=== PATIENT | male | born 1955 | race Caucasian/White ===

== ENCOUNTER → 2017-09-20 | Outpatient (CLI) | payer BC ==
--- NOTE | 2017-09-20 15:06 | XR ---
EXAMINATION TYPE: XR knee complete bilateral, XR tibia fibula bilateral DATE OF EXAM: 09/20/2017 CLINICAL HISTORY: Bilateral knee pain and osteoarthritis. History of osteomyelitis of the left knee TECHNIQUE: Three views of the bilateral knees are obtained. 2 views of the bilateral tibia and fibul as were obtained. COMPARISON: None. FINDINGS: There is extensive tricompartmental arthropathy of both knees with large protuberant margin al osteophytes, tricompartmental joint space narrowing most exaggerated in the medial compartment katelin aterally, and opposing surface sclerosis with near [id number] articulation of the medial compartmen ts bilaterally. No gross evidence of suprapatellar joint effusion is seen of either knee. On the righ t there is a lucency of the lateral tibial plateau that does not extend to an adjacent cortical surfa ce and could represent sequela of prior injury or insufficiency fracture. MRI is recommended. There is generalized subcutaneous edema of the bilateral lower extremities. Calcifications of the rig ht distal Achilles tendons and bilateral phleboliths are noted, right greater than left. The bilatera l tibia and fibula are intact. Ankle mortises are intact with moderate arthropathy of the tibiotalar joints, right greater than left IMPRESSION: 1. Right lateral tibial plateau subchondral lucency that could represent an insufficiency fracture or sequela of prior injury. MRI is recommended to evaluate for bone marrow edema. 2. Extensive tricompartmental bilateral knee arthropathy with near [id number] articulation of the b ilateral medial compartments and opposing surface sclerosis. 3. Generalized lower extremity edema bilaterally with no acute fracture or dislocation of the bilater al tibia or fibula. 4. Calcific tendinosis of the distal Achilles tendons, right greater than left. 5. Partial visualization of the hindfoot arthropathy at least moderate in degree,) on left.
== END | disposition home or self-care (01) ==
LOC: RADXRMAIN 13:46
PROVIDERS: ATTEND Family Medicine
DX: M12.862 Other specific arthropathies, not elsewhere classified, left knee (principal); M12.861 Other specific arthropathies, not elsewhere classified, right knee; R60.0 Localized edema

== ENCOUNTER → 2019-03-13 | Outpatient (CLI) | payer MEDICARE ==
--- NOTE | 2019-03-13 09:38 | US ---
EXAMINATION TYPE: US duplex aorta DATE OF EXAM: 03/13/2019 COMPARISON: NONE CLINICAL HISTORY: Z00.00 abn findings. Screening for AAA per physician's order; HT 5'10", WT 390lbs. EXAM MEASUREMENTS: Us exam is technically limited by large body habitus. Abdominal Aorta: Proximal: 2.4cm A/P Mid: 2.3cm A/P Distal: 2.6cm A/P Bifurcation: not seen Color flow patency is noted mid and distal aorta and PW Doppler measured 105.9cm/sec PSV. IMPRESSION: Technically limited exam due to patient body habitus however no sonographic evidence of a neurysm is seen in the visualized portions of the abdominal aorta.
== END | disposition home or self-care (01) ==
LOC: RADUSMAIN 08:25
PROVIDERS: ATTEND Family Medicine
DX: Z00.00 Encounter for general adult medical examination without abnormal findings (principal)
CPT/HCPCS: 93979

== ENCOUNTER 2021-11-22 06:36 | Day surgery (SDC) | payer MEDICARE ==
[2021-11-16 15:18] VITALS: BMI 63.1
[2021-11-22] MEDS ORDERED: LACTATED RINGERS 1,000 ML IV SCH (06:51)
[2021-11-22 07:19] VITALS: TEMP 97.9
[2021-11-22] MEDS ORDERED: LIDOCAINE 1% (10MG/ML) FOR IV START INTRADERMA ONE (07:28)
[2021-11-22] MEDS ORDERED: LIDOCAINE 2% INJ 20 MG/ML (2 ML VIAL) ONE (07:33)
[2021-11-22] MEDS ORDERED: PROPOFOL 10 MG/ML 20 ML VIAL IV ONE (07:33)
[2021-11-22] MEDS ORDERED: KETAMINE 10 MG/ML 20 ML VIAL ONE (07:33)
[2021-11-22] MEDS ORDERED: MIDAZOLAM 2 MG/2 ML VIAL ONE (07:33)
--- NOTE | 2021-11-22 07:37 | P.GSHP ---
History of Present Illness H&P Date: 11/22/21 CHIEF COMPLAINT: GERD HISTORY OF PRESENT ILLNESS: The patient is a 66-year-old male who presents reports gastroesophageal reflux disease. Upper endoscopy was offered for further evaluation and management. PAST MEDICAL HISTORY: Please see list. PAST SURGICAL HISTORY: Please see list. MEDICATIONS: Please see list. ALLERGIES: Please see list. SOCIAL HISTORY: No illicit drug use FAMILY HISTORY: No reports of Crohn disease or ulcerative colitis. REVIEW OF ORGAN SYSTEMS: CONSTITUTIONAL: No reports of fevers or chills. GI: Denies any blood in stools or constipation. PHYSICAL EXAM: VITAL SIGNS: Stable GENERAL: Well-developed and pleasant in no acute distress. HEENT: No scleral icterus. Extraocular movements grossly intact. Moist buccal mucosa. NECK: Supple without lymphadenopathy. CHEST: Unlabored respirations. Equal bilateral excursions. CARDIOVASCULAR: Regular rate and rhythm. Distal 2+ pulses. ABDOMEN: Soft, nondistended. MUSCULOSKELETAL: No clubbing, cyanosis, or edema. ASSESSMENT: 1. Gastroesophageal reflux disease PLAN: 1. Recommend proceeding with an upper endoscopy Past Medical History Past Medical History: Deep Vein Thrombosis (DVT), Hypertension, Prostate Disorder, Pulmonary Embolus (PE) Additional Past Medical History / Comment(s): Epilepsy as a child, osteomyelitis in 1978, DVT/PE 2019, History of Any Multi-Drug Resistant Organisms: None Reported Past Surgical History: Joint Replacement Additional Past Surgical History / Comment(s): Bilateral knee replacement, right arm skin graft surgery as a child, left knee surgery for ostopmyelituis, fatty tissue removed from back of neck Past Anesthesia/Blood Transfusion Reactions: No Reported Reaction Smoking Status: Former smoker - Past Family History Mother Family Medical History: Cancer Medications and Allergies Home Medications Medication Instructions Recorded Confirmed Type Aspirin [Adult Low Dose Aspirin EC] 81 mg PO HS 10/13/21 11/16/21 History Losartan [Cozaar] 50 mg PO HS 10/13/21 11/16/21 History Metoprolol Tartrate [Lopressor] 25 mg PO BID 10/13/21 11/16/21 History Tamsulosin [Flomax] 0.4 mg PO HS 10/13/21 11/16/21 History hydroCHLOROthiazide 25 mg PO DAILY 10/13/21 11/22/21 History Cholecalciferol [Vitamin D3 (25 50 mcg PO DAILY 11/16/21 11/16/21 History Mcg = 1000 Iu)] Cyanocobalamin (Vitamin B-12) 2,000 mcg PO DAILY 11/16/21 11/16/21 History [Vitamin B-12] Allergies Allergy/AdvReac Type Severity Reaction Status Date / Time No Known Allergies Allergy Verified 11/16/21 15:05 Surgical - Exam Vital Signs Temp Pulse Resp BP Pulse Ox 97.9 F 91 18 166/70 93 L 11/22/21 07:16 11/22/21 07:16 11/22/21 07:16 11/22/21 07:16 11/22/21 07:16
[2021-11-22 07:50] VITALS: PULSE 92
--- NOTE | 2021-11-22 07:50 | P.PCN ---
Date of Procedure: 11/22/21 Description of Procedure: PREOPERATIVE DIAGNOSIS: Gastroesophageal reflux disease. Morbid obesity. POSTOPERATIVE DIAGNOSIS: Gastroesophageal reflux disease. Morbid obesity. Gastritis. Erosive esophagitis Duodenal polyps OPERATION: Esophagogastroduodenoscopy with biopsies along antrum and duodum SURGEON: Irena Rolon MD ANESTHESIA: MAC. INDICATIONS: The patient is a 66-year-old male who presents with reflux disease. Benefits and risks of the procedure were described. Informed consent was obtained. DESCRIPTION: The patient was brought into the endoscopy suite and laid in the left lateral decubitus position. An Olympus gastroscope was passed along the posterior oropharynx down to the distal esophagus where the squamocolumnar junction was encountered at 40 cm from the incisors. The stomach was entered and no bile reflux was found. Additional findings are listed below. Biopsies with cold forceps were obtained of the antrum. The first through third portion of the duodenum was examined. Retroflexion of the scope confirmed Hill grade 2 lower esophageal valve. The squamocolumnar junction demonstrated LA grade B erosive esophagitis. The stomach was desufflated. The patient tolerated the procedure well. FINDINGS: Squamocolumnar junction 40 cm from the incisors. Diaphragmatic hiatus at 40 cm. Duodenal polyposis was identified at the first portion Mild esophageal stenosis Hill grade 2 lower esophageal valve. LA grade B erosive esophagitis. Biopsies obtained of duodenal Chronic gastritis and biopsies obtained RECOMMENDATIONS: Upper endoscopy as needed. Omeprazole 40 mg daily prescribed Plan - Discharge Summary New Discharge Prescriptions: New Omeprazole [PriLOSEC] 40 mg PO DAILY #14 cap Continue Metoprolol Tartrate [Lopressor] 25 mg PO BID Cholecalciferol [Vitamin D3 (25 Mcg = 1000 Iu)] 50 mcg PO DAILY Tamsulosin [Flomax] 0.4 mg PO HS Losartan [Cozaar] 50 mg PO HS hydroCHLOROthiazide 25 mg PO DAILY Aspirin [Adult Low Dose Aspirin EC] 81 mg PO HS Cyanocobalamin (Vitamin B-12) [Vitamin B-12] 2,000 mcg PO DAILY Discharge Medication List Aspirin [Adult Low Dose Aspirin EC] 81 mg PO HS 10/13/21 [History] Losartan [Cozaar] 50 mg PO HS 10/13/21 [History] Metoprolol Tartrate [Lopressor] 25 mg PO BID 10/13/21 [History] Tamsulosin [Flomax] 0.4 mg PO HS 10/13/21 [History] hydroCHLOROthiazide 25 mg PO DAILY 10/13/21 [History] Cholecalciferol [Vitamin D3 (25 Mcg = 1000 Iu)] 50 mcg PO DAILY 11/16/21 [History] Cyanocobalamin (Vitamin B-12) [Vitamin B-12] 2,000 mcg PO DAILY 11/16/21 [History] Omeprazole [PriLOSEC] 40 mg PO DAILY #14 cap 11/22/21 [Rx] Follow up Appointment(s)/Ref[facility] [place] [facility] - 12/[facility]/21 Patient Instructions/Handouts: Gastritis (DC), GERD (Gastroesophageal Reflux Disease) (DC) Discharge Disposition: HOME SELF-CARE
[2021-11-22 08:01] VITALS: BP 123/79; RESP 16
== END 2021-11-22 08:22 | disposition home or self-care (01) ==
LOC: ORWHC2ENDO 06:36
PROVIDERS: ATTEND Surgery Plastic and Reconstructive Surgery
DX: K21.00 Gastro-esophageal reflux disease with esophagitis, without bleeding (principal); K31.7 Polyp of stomach and duodenum; K29.50 Unspecified chronic gastritis without bleeding; K22.2 Esophageal obstruction; K44.9 Diaphragmatic hernia without obstruction or gangrene; E66.01 Morbid (severe) obesity due to excess calories; Z68.44 Body mass index [BMI] 60.0-69.9, adult; I10 Essential (primary) hypertension; Z86.711 Personal history of pulmonary embolism; N42.9 Disorder of prostate, unspecified; Z87.891 Personal history of nicotine dependence; Z86.69 Personal history of other diseases of the nervous system and sense organs; Z79.82 Long term (current) use of aspirin; Z79.899 Other long term (current) drug therapy; Z80.9 Family history of malignant neoplasm, unspecified
CPT/HCPCS: 88305; 43239; J2250; J2704; J2001

== ENCOUNTER 2021-12-31 16:18 | Inpatient (IN) | payer MEDICARE ==
[2021-12-31] MEDS ORDERED: SODIUM CHLORIDE 0.9% 1,000 ML IV STA (17:48)
[2021-12-31] MEDS ORDERED: IBUPROFEN 600 MG TAB PO STA (17:48)
[2021-12-31] MEDS ORDERED: ACETAMINOPHEN TAB 500 MG TAB PO STA (17:48)
[2021-12-31] MEDS ORDERED: VANCOMYCIN IV PER PHARMACY 1 EACH MISC MISCELLANE PRN (17:50)
[2021-12-31] MEDS ORDERED: VANCOMYCIN 2,500 MG in SODIUM CHLORIDE 0.9% 500 ML 500 ML IVPB ONE (18:30)
--- NOTE | 2021-12-31 18:48 | XR ---
EXAMINATION TYPE: XR chest 2V DATE OF EXAM: 12/31/2021 COMPARISON: NONE HISTORY: Weakness TECHNIQUE: 3 views FINDINGS: There is no heart failure nor confluent pneumonic infiltrate. There is linear density in th e left upper lobe. No pleural effusion. There are no hilar masses. Heart size is fairly normal. IMPRESSION: Linear left upper lobe density probably due to some atelectasis. Normal heart.
[2021-12-31 18:51] LABS: Basophils # (A) 0.1 k/uL (0-0.2); Basophils % (A) 0 %; Eosinophils # (A) 0.2 k/uL (0-0.7); Eosinophils % (A) 1 %; HCT 41.4 % (39.0-53.0); HGB 13.2 gm/dL (13.0-17.5); Lymphocytes # (A) 0.3 k/uL (1.0-4.8); Lymphocytes % (A) 1 %; MCH 27.7 pg (25.0-35.0); MCHC 31.9 g/dL (31.0-37.0); MCV 86.7 fL (80.0-100.0); Mean Platelet Volume 8.2; Monocytes # (A) 0.3 k/uL (0-1.0); Monocytes % (A) 2 %; Neutrophils # (A) 17.4 k/uL (1.3-7.7); Neutrophils % (A) 95 %; Platelet Count 187 k/uL (150-450); RBC 4.77 m/uL (4.30-5.90); RDW 14.9 % (11.5-15.5); WBC 18.3 k/uL (3.8-10.6)
[2021-12-31 19:00] LABS: Albumin 3.6 g/dL (3.5-5.0); Calcium 8.5 mg/dL (8.4-10.2); Magnesium 1.5 mg/dL (1.6-2.3); Potassium 3.9 mmol/L (3.5-5.1); Total Bilirubin 1.1 mg/dL (0.2-1.3); Total Protein 6.4 g/dL (6.3-8.2)
[2021-12-31 19:08] LABS: Appearance,Urine Clear (Clear); Bilirubin,Urine Negative (Negative); Blood,Urine Large (Negative); Color,Urine Yellow; Glucose,Urine (UA) Negative (Negative); Ketones,Urine Negative (Negative); Leukocyte Esterase,Urine Negative (Negative); Mucus,Urine Rare /hpf; Nitrite,Urine Negative (Negative); PH, Urine 6.5 (5.0-8.0); Protein,Urine 1+ (Negative); RBC,Urine 95 /hpf (0-5); Specific Gravity,Urine 1.023 (1.001-1.035); Urobilinogen,Urine <2.0 mg/dL (<2.0); WBC,Urine 3 /hpf (0-5)
[2021-12-31 19:11] LABS: INR 1.2 (<1.2); Partial Thromboplastin Time 25.9 sec (22.0-30.0); Prothrombin Time 12.4 sec (9.0-12.0)
--- NOTE | 2021-12-31 20:21 | CT ---
EXAMINATION TYPE: CT abdomen pelvis w con DATE OF EXAM: 12/31/2021 COMPARISON: None HISTORY: abd wall erythema/infection concern. CT DLP: 4787.4 mGycm Automated exposure control for dose reduction was used. CONTRAST: Performed with IV Contrast, patient injected with 80 ML mL of Isovue 300. Lung bases are clear. No pleural effusion. Heart size is normal. No pericardial effusion. Liver spleen pancreas and gallbladder appear intact. The bile ducts are not dilated. There is no adrenal mass. Kidneys have normal size and contour. No hydronephrosis. There is normal en hancement of the kidneys. Ureters are not dilated. There is no retroperitoneal adenopathy. The bladde r distends smoothly. No inguinal hernia. No free fluid in the pelvis. No pelvic mass. There is no mesenteric edema. No ascites or free air. Appendix not clearly seen. No sign of thickened appendix. The lumbar vertebrae appear intact. No compression fracture. The hip joints are intact. IMPRESSION: No acute abnormality in the abdomen pelvis. Exam limited by patient's size. No pathologic fluid colle ction.
--- NOTE | 2021-12-31 21:01 | ED ---
General Adult HPI - General Chief complaint: Weakness Stated complaint: Weakness Time Seen by Provider: 12/31/21 17:05 Source: patient, RN notes reviewed, old records reviewed Mode of arrival: ambulatory Limitations: no limitations - History of Present Illness Initial comments: Patient is a 66-year-old male with past medical history remarkable for prior DVT, hypertension, prostate disorder no longer on anticoagulation who presents here to Department complaining of fatigue, shaking. Patient is also noticed that his pannus has turned red. This started yesterday. States he came in from outside and was feeling unwell. [place] fatigued. Noticed that his abdomen at that time was red below his belt line. This is abnormal for him. We did seek medical attention until today. Has had less of an appetite. Denies shortness of breath, chest pain. Denies abdominal pain, nausea, vomiting. Endorses generalized fatigue. Denies urinary complaints at this time. Endorses generalized weakness. Has no known sick contacts. Denies pain over his pannus. This is for further evaluation of this time. Concerned for possible skin infection of his pannus. - Related Data Home Medications Medication Instructions Recorded Confirmed Aspirin [Adult Low Dose Aspirin EC] 81 mg PO HS 10/13/21 12/31/21 Losartan [Cozaar] 50 mg PO HS 10/13/21 12/31/21 Metoprolol Tartrate [Lopressor] 25 mg PO BID 10/13/21 12/31/21 Tamsulosin [Flomax] 0.4 mg PO HS 10/13/21 12/31/21 hydroCHLOROthiazide 25 mg PO DAILY 10/13/21 12/31/21 Cholecalciferol [Vitamin D3 (25 50 mcg PO DAILY 11/16/21 12/31/21 Mcg = 1000 Iu)] Cyanocobalamin (Vitamin B-12) 2,000 mcg PO DAILY 11/16/21 12/31/21 [Vitamin B-12] Previous Rx's Medication Instructions Recorded Omeprazole [PriLOSEC] 40 mg PO DAILY #14 cap 11/22/21 Allergies Allergy/AdvReac Type Severity Reaction Status Date / Time No Known Allergies Allergy Verified 12/31/21 21:12 Review of Systems ROS Statement: Those systems with pertinent positive or pertinent negative responses have been documented in the HPI. Review of Systems: CONST: Denies fever EYES: Denies blurry vision ENT: Denies nasal congestion C/V: Denies Chest pain RESP: Denies shortness of breath GI: Denies abdominal pain : Denies dysuria SKIN: Endorses rash MSK: Denies joint pain. NEURO: Denies headache ROS Other: All systems not noted in ROS Statement are negative. Past Medical History Past Medical History: Deep Vein Thrombosis (DVT), Hypertension, Prostate Disorder, Pulmonary Embolus (PE) Additional Past Medical History / Comment(s): Epilepsy as a child, osteomyelitis in 1978, DVT/PE 2019, History of Any Multi-Drug Resistant Organisms: None Reported Past Surgical History: Joint Replacement Additional Past Surgical History / Comment(s): Bilateral knee replacement, right arm skin graft surgery as a child, left knee surgery for ostopmyelituis, fatty tissue removed from back of neck Past Anesthesia/Blood Transfusion Reactions: No Reported Reaction Past Psychological History: No Psychological Hx Reported Smoking Status: Former smoker Past Alcohol Use History: None Reported Past Drug Use History: None Reported - Past Family History Mother Family Medical History: Cancer General Exam - General Exam Comments Initial Comments: General: Appears in no acute distress. Febrile. HEAD: Normal with no signs of head trauma. EYES: PERRLA, EOMI, conjunctiva normal, no discharge. ENT: Hearing grossly intact, normal oropharynx. RESPIRATORY: Clear breath sounds bilaterally. No wheezes, rales, or rhonchi. C/V: Regular rate and rhythm. S1 and S2 auscultated, peripheral pulses 2+ and intact throughout ABD: Abd is soft, nontender, nondistended. Large BMI. EXT: Normal range of motion, no obvious deformity SKIN: Endorses erythematous, as well as warm. No crepitus. No induration. No fluctuance. Appears to be cellulitic over the pannus. Perineum unremarkable. NEURO: Alert and oriented 4. No focal deficits. Limitations: no limitations Course Vital Signs 12/31/21 12/31/21 12/31/21 16:30 20:08 21:20 Temperature 101.0 F H 99.2 F 98.9 F Pulse Rate 99 111 H 101 H Respiratory 20 24 18 Rate Blood Pressure 120/99 111/57 111/72 O2 Sat by Pulse 95 93 L 93 L Oximetry Medical Decision Making - Medical Decision Making 7 patient's presentation and physical exam, I'm concerned for acute infectious process for his current symptoms but cannot rule out other etiology such as cardiac. We'll obtain basic labs, infectious labs, CT head and pelvis. Blood cultures, lactic acid will be obtained. Will be started on IV vancomycin. Patient was in agreement this plan. He will be given IV fluids as well, in addition to Tylenol and Motrin for fever. Vital signs otherwise within normal limits except for the fever. EKG shows no signs of acute ischemia. Laboratory studies are remarkable for leukocytosis of 18. Patient is a slightly elevated BUN/creatinine 25 and 1.29, likely secondary to mild MAU and dehydration. Lactic acid is within normal limits. Troponin is indeterminate. Urine studies are positive for blood but nothing else. No infection. Covid is negative. Chest x-ray shows no acute cardio primary process. Atelectasis present. CT abdomen and pelvis reveals no acute intra-abdominal process. No process in the abdominal wall. On reevaluation, vital signs improved. Fever is resolved. I discussed results with the patient. Like to admit for further IV antibiotics. He was in agreement this plan. I spoke the admitting physician, Dr. Santos who is in agreement this plan. He requested infectious disease be consulted as well. Patient was admitted in stable condition. - Lab Data Result diagrams: 12/31/21 18:35 12/31/21 18:35 Lab Results 12/31/21 12/31/21 12/31/21 Range/Units 18:35 18:35 18:35 WBC 18.3 H (3.8-10.6) k/uL RBC 4.77 (4.30-5.90) m/uL Hgb 13.2 (13.0-17.5) gm/dL Hct 41.4 (39.0-53.0) % MCV 86.7 (80.0-100.0) fL MCH 27.7 (25.0-35.0) pg MCHC 31.9 (31.0-37.0) g/dL RDW 14.9 (11.5-15.5) % Plt Count 187 (150-450) k/uL MPV 8.2 Neutrophils % 95 % Lymphocytes % 1 % Monocytes % 2 % Eosinophils % 1 % Basophils % 0 % Neutrophils # 17.4 H (1.3-7.7) k/uL Lymphocytes # 0.3 L (1.0-4.8) k/uL Monocytes # 0.3 (0-1.0) k/uL Eosinophils # 0.2 (0-0.7) k/uL Basophils # 0.1 (0-0.2) k/uL PT 12.4 H (9.0-12.0) sec INR 1.2 H (<1.2) APTT 25.9 (22.0-30.0) sec Sodium (137-145) mmol/L Potassium (3.5-5.1) mmol/L Chloride (98-107) mmol/L Carbon Dioxide (22-30) mmol/L Anion Gap mmol/L BUN (9-20) mg/dL Creatinine (0.66-1.25) mg/dL Est GFR (CKD-EPI)AfAm (>60 ml/min/1.73 sqM) Est GFR (CKD-EPI)NonAf (>60 ml/min/1.73 sqM) Glucose (74-99) mg/dL Plasma Lactic Acid Misha (0.7-2.0) mmol/L Calcium (8.4-10.2) mg/dL Magnesium (1.6-2.3) mg/dL Total Bilirubin (0.2-1.3) mg/dL AST (17-59) U/L ALT (4-49) U/L Alkaline Phosphatase (38-126) U/L Troponin I (0.000-0.034) ng/mL Total Protein (6.3-8.2) g/dL Albumin (3.5-5.0) g/dL Urine Color Yellow Urine Appearance Clear (Clear) Urine pH 6.5 (5.0-8.0) Ur Specific [place] 1.023 (1.001-1.035) Urine Protein 1+ H (Negative) Urine Glucose (UA) Negative (Negative) Urine Ketones Negative (Negative) Urine Blood Large H (Negative) Urine Nitrite Negative (Negative) Urine Bilirubin Negative (Negative) Urine Urobilinogen <2.0 (<2.0) mg/dL Ur Leukocyte Esterase Negative (Negative) Urine RBC 95 H (0-5) /hpf Urine WBC 3 (0-5) /hpf Urine Mucus Rare H (None) /hpf Coronavirus (PCR) (Not Detectd) 12/31/21 12/31/21 12/31/21 Range/Units 18:35 18:35 18:35 WBC (3.8-10.6) k/uL RBC (4.30-5.90) m/uL Hgb (13.0-17.5) gm/dL Hct (39.0-53.0) % MCV (80.0-100.0) fL MCH (25.0-35.0) pg MCHC (31.0-37.0) g/dL RDW (11.5-15.5) % Plt Count (150-450) k/uL MPV Neutrophils % % Lymphocytes % % Monocytes % % Eosinophils % % Basophils % % Neutrophils # (1.3-7.7) k/uL Lymphocytes # (1.0-4.8) k/uL Monocytes # (0-1.0) k/uL Eosinophils # (0-0.7) k/uL Basophils # (0-0.2) k/uL PT (9.0-12.0) sec INR (<1.2) APTT (22.0-30.0) sec Sodium 135 L (137-145) mmol/L Potassium 3.9 (3.5-5.1) mmol/L Chloride 97 L (98-107) mmol/L Carbon Dioxide 26 (22-30) mmol/L Anion Gap 12 mmol/L BUN 25 H (9-20) mg/dL Creatinine 1.29 H (0.66-1.25) mg/dL Est GFR (CKD-EPI)AfAm 66 (>60 ml/min/1.73 sqM) Est GFR (CKD-EPI)NonAf 57 (>60 ml/min/1.73 sqM) Glucose 113 H (74-99) mg/dL Plasma Lactic Acid Misha (0.7-2.0) mmol/L Calcium 8.5 (8.4-10.2) mg/dL Magnesium 1.5 L (1.6-2.3) mg/dL Total Bilirubin 1.1 (0.2-1.3) mg/dL AST 77 H (17-59) U/L ALT 27 (4-49) U/L Alkaline Phosphatase 43 (38-126) U/L Troponin I 0.028 (0.000-0.034) ng/mL Total Protein 6.4 (6.3-8.2) g/dL Albumin 3.6 (3.5-5.0) g/dL Urine Color Urine Appearance (Clear) Urine pH (5.0-8.0) Ur Specific [place] (1.001-1.035) Urine Protein (Negative) Urine Glucose (UA) (Negative) Urine Ketones (Negative) Urine Blood (Negative) Urine Nitrite (Negative) Urine Bilirubin (Negative) Urine Urobilinogen (<2.0) mg/dL Ur Leukocyte Esterase (Negative) Urine RBC (0-5) /hpf Urine WBC (0-5) /hpf Urine Mucus (None) /hpf Coronavirus (PCR) Not Detected (Not Detectd) 12/31/21 Range/Units 18:42 WBC (3.8-10.6) k/uL RBC (4.30-5.90) m/uL Hgb (13.0-17.5) gm/dL Hct (39.0-53.0) % MCV (80.0-100.0) fL MCH (25.0-35.0) pg MCHC (31.0-37.0) g/dL RDW (11.5-15.5) % Plt Count (150-450) k/uL MPV Neutrophils % % Lymphocytes % % Monocytes % % Eosinophils % % Basophils % % Neutrophils # (1.3-7.7) k/uL Lymphocytes # (1.0-4.8) k/uL Monocytes # (0-1.0) k/uL Eosinophils # (0-0.7) k/uL Basophils # (0-0.2) k/uL PT (9.0-12.0) sec INR (<1.2) APTT (22.0-30.0) sec Sodium (137-145) mmol/L Potassium (3.5-5.1) mmol/L Chloride (98-107) mmol/L Carbon Dioxide (22-30) mmol/L Anion Gap mmol/L BUN (9-20) mg/dL Creatinine (0.66-1.25) mg/dL Est GFR (CKD-EPI)AfAm (>60 ml/min/1.73 sqM) Est GFR (CKD-EPI)NonAf (>60 ml/min/1.73 sqM) Glucose (74-99) mg/dL Plasma Lactic Acid Misha 1.6 (0.7-2.0) mmol/L Calcium (8.4-10.2) mg/dL Magnesium (1.6-2.3) mg/dL Total Bilirubin (0.2-1.3) mg/dL AST (17-59) U/L ALT (4-49) U/L Alkaline Phosphatase (38-126) U/L Troponin I (0.000-0.034) ng/mL Total Protein (6.3-8.2) g/dL Albumin (3.5-5.0) g/dL Urine Color Urine Appearance (Clear) Urine pH (5.0-8.0) Ur Specific [place] (1.001-1.035) Urine Protein (Negative) Urine Glucose (UA) (Negative) Urine Ketones (Negative) Urine Blood (Negative) Urine Nitrite (Negative) Urine Bilirubin (Negative) Urine Urobilinogen (<2.0) mg/dL Ur Leukocyte Esterase (Negative) Urine RBC (0-5) /hpf Urine WBC (0-5) /hpf Urine Mucus (None) /hpf Coronavirus (PCR) (Not Detectd) - EKG Data -: EKG Interpreted by Me EKG Comments: 12-lead Electrocardiogram Interpretation Note EKG was reviewed and interpreted by myself. 12-lead ECG performed at 2000 is interpreted by me as revealing sinus tachycardia at a rate of 110 beats per minute. [place] is normal. QRS duration is 104 ms, CO interval is 110 ms, QTc is 442 ms. There is a good deal of baseline artifact present secondary to motion.. There were no ST or T wave abnormalities to suggest myocardial ischemia or injury. R wave progression across the precordium was satisfactory. By my interpretation this EKG is non-diagnostic for acute ischemia. Disposition Clinical Impression: Cellulitis of abdominal wall, MAU (acute kidney injury), Febrile illness, acute Disposition: ADMITTED IP TO THIS HOSP Condition: Stable Is patient prescribed a controlled substance at d/c from ED?: No Time of Disposition: 20:20
[2021-12-31] MEDS ORDERED: NALOXONE 0.4 MG/ML 1 ML VIAL IV PRN (21:02)
[2021-12-31] MEDS: MAGNESIUM SULFATE-D5W PMX 1 GM in DEXTROSE/WATER 1 100ML.BAG IVPB SCH ×2 (23:28→23:41)
[2022-01-01] MEDS ORDERED: ACETAMINOPHEN TAB 325 MG TAB PO PRN
[2022-01-01] MEDS ORDERED: ONDANSETRON 4 MG/2 ML VIAL IVP PRN
[2022-01-01] MEDS ORDERED: KETOROLAC 15 MG/ML 1 ML VIAL IVP PRN
[2022-01-01] MEDS ORDERED: MORPHINE SULFATE 4 MG/ML SYRINGE IV PRN
[2022-01-01] MEDS ORDERED: MAGNESIUM SULFATE-D5W PMX 1 GM in DEXTROSE/WATER 1 100ML.BAG IVPB SCH (00:30)
[2022-01-01] MEDS: HEPARIN SODIUM,PORCINE/PF 5,000 UNIT/0.5 ML SYRINGE SQ SCH ×3 (02:33→15:44)
[2022-01-01 07:16] LABS: Basophils # (A) 0.1 k/uL (0-0.2); Basophils % (A) 1 %; Eosinophils # (A) 0.2 k/uL (0-0.7); Eosinophils % (A) 1 %; HCT 43.5 % (39.0-53.0); HGB 13.4 gm/dL (13.0-17.5); Hypochromasia Slight; Lymphocytes # (A) 0.1 k/uL (1.0-4.8); Lymphocytes % (A) 1 %; MCH 27.3 pg (25.0-35.0); MCHC 30.8 g/dL (31.0-37.0); MCV 88.6 fL (80.0-100.0); Mean Platelet Volume 8.3; Monocytes # (A) 0.4 k/uL (0-1.0); Monocytes % (A) 2 %; Neutrophils # (A) 17.5 k/uL (1.3-7.7); Neutrophils % (A) 95 %; Platelet Count 157 k/uL (150-450); RBC 4.91 m/uL (4.30-5.90); RDW 15.1 % (11.5-15.5); WBC 18.5 k/uL (3.8-10.6)
[2022-01-01 07:25] LABS: Calcium 8.1 mg/dL (8.4-10.2); Potassium 3.5 mmol/L (3.5-5.1)
[2022-01-01] MEDS: CHOLECALCIFEROL 25 MCG (1000 IU) TABLET PO SCH (08:55)
[2022-01-01] MEDS: PANTOPRAZOLE 40 MG TABLET PO SCH (08:55)
[2022-01-01] MEDS: METOPROLOL TARTRATE 25 MG TAB PO SCH ×2 (08:56→20:11)
[2022-01-01] MEDS: CYANOCOBALAMIN 500 MCG TAB PO SCH (08:56)
[2022-01-01] MEDS: hydroCHLOROthiazide 25 MG TAB PO SCH (08:56)
[2022-01-01] MEDS ORDERED: VANCOMYCIN 2,500 MG in SODIUM CHLORIDE 0.9% 500 ML 500 ML IVPB SCH (12:00)
[2022-01-01] MEDS: ceFAZolin 3 GM in SODIUM CHLORIDE 0.9% 100 ML IVPB SCH (15:44)
[2022-01-01] MEDS: CLINDAMYCIN 900 MG in DEXTROSE 5% IN WATER 50 ML IVPB SCH ×2 (16:27)
[2022-01-01] MEDS: TAMSULOSIN 0.4 MG CAP.ER.24H PO SCH (20:11)
[2022-01-01] MEDS: LOSARTAN 50 MG TAB PO SCH (20:11)
[2022-01-01] MEDS: ASPIRIN 81 MG PO SCH (20:11)
--- NOTE | 2022-01-01 20:15 | P.HPIM ---
History of Present Illness H&P Date: 01/01/22 Chief Complaint: Weakness 66-year-old male with past medical history remarkable for prior DVT, hypertension, prostate disorder no longer on anticoagulation who presents here t o Department complaining of fatigue, shaking. Patient is also noticed that his pannus has turned red. This started yesterday. States he came in from outside and was feeling unwell. [place] fatigued. Noticed that his abdomen at that time was red below his belt line. This is abnormal for him. We did seek medical attention until today. Has had less of an appetite. Denies shortness of breath, chest pain. Denies abdominal pain, nausea, vomiting. Endorses generalized fatigue. Denies urinary complaints at this time. Endorses generalized weakness. Has no known sick contacts. Denies pain over his pannus. This is for further evaluation of this time. Concerned for possible skin infection of his pannus. EKG shows no signs of acute ischemia. Laboratory studies are remarkable for leukocytosis of 18. Patient is a slightly elevated BUN/creatinine 25 and 1.29, likely secondary to mild MAU and dehydration. Lactic acid is within normal limits. Troponin is indeterminate. Urine studies are positive for blood but nothing else. No infection. Covid is negative. Chest x-ray shows no acute cardio primary process. Atelectasis present. CT abdomen and pelvis reveals no acute intra-abdominal process. No process in the abdominal wall. Review of Systems REVIEW OF SYSTEMS: CONSTITUTIONAL: No fever, no malaise, no fatigue. HEENT: No recent visual problems or hearing problems. Denied any sore throat. CARDIOVASCULAR: No chest pain, orthopnea, PND, no palpitations, no syncope. PULMONARY: No shortness of breath, no cough, no hemoptysis. GASTROINTESTINAL: No diarrhea, no nausea, no vomiting, no abdominal pain. NEUROLOGICAL: No headaches, no weakness, no numbness. HEMATOLOGICAL: Denies any bleeding or petechiae. GENITOURINARY: Denies any burning micturition, frequency, or urgency. MUSCULOSKELETAL/RHEUMATOLOGICAL: Denies any joint pain, swelling, or any muscle pain. ENDOCRINE: Denies any polyuria or polydipsia. The rest of the 14-point review of systems is negative. Past Medical History Past Medical History: Deep Vein Thrombosis (DVT), Hypertension, Prostate Disord er, Pulmonary Embolus (PE) Additional Past Medical History / Comment(s): Epilepsy as a child, osteomyelitis in 1978, DVT/PE 2019, History of Any Multi-Drug Resistant Organisms: None Reported Past Surgical History: Joint Replacement Additional Past Surgical History / Comment(s): Bilateral knee replacement, right arm skin graft surgery as a child, left knee surgery for ostopmyelituis, fatty tissue removed from back of neck Past Anesthesia/Blood Transfusion Reactions: No Reported Reaction Past Psychological History: No Psychological Hx Reported Smoking Status: Former smoker Past Alcohol Use History: None Reported Additional Past Alcohol Use History / Comment(s): quit smoking age 39, started smoking age19's, was "light smoker" Past Drug Use History: None Reported - Past Family History Mother Family Medical History: Cancer Medications and Allergies Home Medications Medication Instructions Recorded Confirmed Type Aspirin [Adult Low Dose Aspirin EC] 81 mg PO HS 10/13/21 12/31/21 History Losartan [Cozaar] 50 mg PO HS 10/13/21 12/31/21 History Metoprolol Tartrate [Lopressor] 25 mg PO BID 10/13/21 12/31/21 History Tamsulosin [Flomax] 0.4 mg PO HS 10/13/21 12/31/21 History hydroCHLOROthiazide 25 mg PO DAILY 10/13/21 12/31/21 History Cholecalciferol [Vitamin D3 (25 50 mcg PO DAILY 11/16/21 12/31/21 History Mcg = 1000 Iu)] Cyanocobalamin (Vitamin B-12) 2,000 mcg PO DAILY 11/16/21 12/31/21 History [Vitamin B-12] Omeprazole [PriLOSEC] 40 mg PO DAILY #14 cap 11/22/21 12/31/21 Rx Allergies Allergy/AdvReac Type Severity Reaction Status Date / Time No Known Allergies Allergy Verified 12/31/21 21:12 Physical Exam Vitals: Vital Signs Temp Pulse Pulse Resp BP BP Pulse Ox 01/01/22 07:00 98.3 F 97 18 134/80 95 01/01/22 02:00 98.5 F 99 17 101/61 99 01/01/22 00:40 97.6 F 90 20 98/61 100 12/31/21 23:43 99.0 F 96 23 115/70 94 L 12/31/21 21:20 98.9 F 101 H 18 111/72 93 L 12/31/21 20:08 99.2 F 111 H 24 111/57 93 L 12/31/21 16:30 101.0 F H 99 23 120/99 95 Intake and Output 12/31/21 01/01/22 01/01/22 22:59 06:59 14:59 Output Total 400 Balance -400 Output: Urine 400 Other: Voiding Method Urinal # Voids 1 1 Weight 199.581 kg 199.581 kg General: Appears in no acute distress. Febrile. HEAD: Normal with no signs of head trauma. EYES: PERRLA, EOMI, conjunctiva normal, no discharge. ENT: Hearing grossly intact, normal oropharynx. RESPIRATORY: Clear breath sounds bilaterally. No wheezes, rales, or rhonchi. C/V: Regular rate and rhythm. S1 and S2 auscultated, peripheral pulses 2+ and intact throughout ABD: Abd is soft, nontender, nondistended. Large BMI. EXT: Normal range of motion, no obvious deformity SKIN: Endorses erythematous, as well as warm. No crepitus. No induration. No fluctuance. Appears to be cellulitic over the pannus. Perineum unremarkable. NEURO: Alert and oriented 4. No focal deficits. Limitations: no limitations Results CBC & Chem 7: 01/01/22 06:23 01/01/22 06:23 Labs: Abnormal Lab Results - Last 24 Hours (Table) 12/31/21 12/31/21 12/31/21 Range/Units 18:35 18:35 18:35 WBC 18.3 H (3.8-10.6) k/uL MCHC (31.0-37.0) g/dL Neutrophils # 17.4 H (1.3-7.7) k/uL Lymphocytes # 0.3 L (1.0-4.8) k/uL PT 12.4 H (9.0-12.0) sec INR 1.2 H (<1.2) Sodium (137-145) mmol/L Chloride (98-107) mmol/L BUN (9-20) mg/dL Creatinine (0.66-1.25) mg/dL Glucose (74-99) mg/dL Calcium (8.4-10.2) mg/dL Magnesium (1.6-2.3) mg/dL AST (17-59) U/L Urine Protein 1+ H (Negative) Urine Blood Large H (Negative) Urine RBC 95 H (0-5) /hpf Urine Mucus Rare H (None) /hpf 12/31/21 01/01/22 01/01/22 Range/Units 18:35 06:23 06:23 WBC 18.5 H (3.8-10.6) k/uL MCHC 30.8 L (31.0-37.0) g/dL Neutrophils # 17.5 H (1.3-7.7) k/uL Lymphocytes # 0.1 L (1.0-4.8) k/uL PT (9.0-12.0) sec INR (<1.2) Sodium 135 L (137-145) mmol/L Chloride 97 L (98-107) mmol/L BUN 25 H 28 H (9-20) mg/dL Creatinine 1.29 H (0.66-1.25) mg/dL Glucose 113 H 126 H (74-99) mg/dL Calcium 8.1 L (8.4-10.2) mg/dL Magnesium 1.5 L (1.6-2.3) mg/dL AST 77 H (17-59) U/L Urine Protein (Negative) Urine Blood (Negative) Urine RBC (0-5) /hpf Urine Mucus (None) /hpf Assessment and Plan Assessment: 1. Severe extensive Cellulitis of abdominal wall - White blood count is markedly elevated at 18.3; patient is currently on IV vancomycin; cefazolin and clindamycin is added per ID recommendations - We will monitor CBC, CRP and pro-calcitonin - Consult ID for further recommendations 2. Acute renal injury; slowly IV fluid hydration in form of normal saline at rate of 75 mL an hour; we will monitor strict GARRY's, daily weights, renal function and electrolytes; avoid nephrotoxins and hypotension 3. Electrolyte imbalance/hypomagnesemia; supplemented in ED; we will monitor electrolytes and supplement as needed 4. Transaminitis; likely related to sepsis; monitor liver enzymes with plans for further workup if liver enzymes continue to trend up 5. UTI; blood culture and urine culture is obtained; further recommendations once culture results are available 6. Hypertension; losartan 50 mg daily; metoprolol 25 mg twice a day; hydrochlorothiazide 25 mg daily 7. BPH; Flomax 0.4 mg daily DVT prophylaxis; SCDs/subcu heparin CODE STATUS; full code
--- NOTE | 2022-01-01 21:40 | P.CONS ---
History of Present Illness - Reason for Consult Consult date: 01/01/22 - History of Present Illness Patient is a 66-year male with a past medical history significant for hypertension morbid obesity history of abdominal wall cellulitis x2 presenting to the hospital with increasing weakness lethargic and not feeling well also complaining of abdominal wall swelling and redness that has been going on for 1 day before presentation to the hospital patient denies any history of any trauma has been complaining of diffuse swelling redness to lower abdominal area that has progressed very quickly currently with no open wound or any drainage has been complaining of pain which is mostly dull aching to sharp about 5-6 out of 10 no radiation patient on presentation to the hospital was running a fever of 101 degrees formulae patient was tachycardic and did have white count of 18.3 BUN/creatinine were elevated urine has been negative chronically there was negative patient did have a abdominal pelvic CT no acute abnormality no pathological fluid collection patient was started on vancomycin has been admitted to the hospital infectious disease was consulted for further management of antibiotic therapy Past Medical History Past Medical History: Deep Vein Thrombosis (DVT), Hypertension, Prostate Disorder, Pulmonary Embolus (PE) Additional Past Medical History / Comment(s): Epilepsy as a child, osteomyelitis in 1978, DVT/PE 2019, History of Any Multi-Drug Resistant Organisms: None Reported Past Surgical History: Joint Replacement Additional Past Surgical History / Comment(s): Bilateral knee replacement, right arm skin graft surgery as a child, left knee surgery for ostopmyelituis, fatty tissue removed from back of neck Past Anesthesia/Blood Transfusion Reactions: No Reported Reaction Past Psychological History: No Psychological Hx Reported Smoking Status: Former smoker Past Alcohol Use History: None Reported Additional Past Alcohol Use History / Comment(s): quit smoking age 39, started smoking age19's, was "light smoker" Past Drug Use History: None Reported - Past Family History Mother Family Medical History: Cancer Medications and Allergies Home Medications Medication Instructions Recorded Confirmed Type Aspirin [Adult Low Dose Aspirin EC] 81 mg PO HS 10/13/21 12/31/21 History Losartan [Cozaar] 50 mg PO HS 10/13/21 12/31/21 History Metoprolol Tartrate [Lopressor] 25 mg PO BID 10/13/21 12/31/21 History Tamsulosin [Flomax] 0.4 mg PO HS 10/13/21 12/31/21 History hydroCHLOROthiazide 25 mg PO DAILY 10/13/21 12/31/21 History Cholecalciferol [Vitamin D3 (25 50 mcg PO DAILY 11/16/21 12/31/21 History Mcg = 1000 Iu)] Cyanocobalamin (Vitamin B-12) 2,000 mcg PO DAILY 11/16/21 12/31/21 History [Vitamin B-12] Omeprazole [PriLOSEC] 40 mg PO DAILY #14 cap 11/22/21 12/31/21 Rx Allergies Allergy/AdvReac Type Severity Reaction Status Date / Time No Known Allergies Allergy Verified 12/31/21 21:12 Physical Exam Vitals: Vital Signs Temp Pulse Pulse Resp BP BP Pulse Ox 01/01/22 07:00 98.3 F 97 18 134/80 95 01/01/22 02:00 98.5 F 99 17 101/61 99 01/01/22 00:40 97.6 F 90 20 98/61 100 12/31/21 23:43 99.0 F 96 23 115/70 94 L 12/31/21 21:20 98.9 F 101 H 18 111/72 93 L 12/31/21 20:08 99.2 F 111 H 24 111/57 93 L 12/31/21 16:30 101.0 F H 99 23 120/99 95 Intake and Output 12/31/21 01/01/22 01/01/22 22:59 06:59 14:59 Output Total 400 Balance -400 Output: Urine 400 Other: Voiding Method Urinal # Voids 1 1 Weight 199.581 kg 199.581 kg Results CBC & Chem 7: 01/01/22 06:23 01/01/22 06:23 Labs: Abnormal Lab Results - Last 24 Hours (Table) 12/31/21 12/31/21 12/31/21 Range/Units 18:35 18:35 18:35 WBC 18.3 H (3.8-10.6) k/uL MCHC (31.0-37.0) g/dL Neutrophils # 17.4 H (1.3-7.7) k/uL Lymphocytes # 0.3 L (1.0-4.8) k/uL PT 12.4 H (9.0-12.0) sec INR 1.2 H (<1.2) Sodium (137-145) mmol/L Chloride (98-107) mmol/L BUN (9-20) mg/dL Creatinine (0.66-1.25) mg/dL Glucose (74-99) mg/dL Calcium (8.4-10.2) mg/dL Magnesium (1.6-2.3) mg/dL AST (17-59) U/L Urine Protein 1+ H (Negative) Urine Blood Large H (Negative) Urine RBC 95 H (0-5) /hpf Urine Mucus Rare H (None) /hpf 12/31/21 01/01/22 01/01/22 Range/Units 18:35 06:23 06:23 WBC 18.5 H (3.8-10.6) k/uL MCHC 30.8 L (31.0-37.0) g/dL Neutrophils # 17.5 H (1.3-7.7) k/uL Lymphocytes # 0.1 L (1.0-4.8) k/uL PT (9.0-12.0) sec INR (<1.2) Sodium 135 L (137-145) mmol/L Chloride 97 L (98-107) mmol/L BUN 25 H 28 H (9-20) mg/dL Creatinine 1.29 H (0.66-1.25) mg/dL Glucose 113 H 126 H (74-99) mg/dL Calcium 8.1 L (8.4-10.2) mg/dL Magnesium 1.5 L (1.6-2.3) mg/dL AST 77 H (17-59) U/L Urine Protein (Negative) Urine Blood (Negative) Urine RBC (0-5) /hpf Urine Mucus (None) /hpf Assessment and Plan Plan: 1patient presented to hospital with sepsis in this patient did have a fever tachycardia elevated white count source is abdominal wall cellulitis with diffuse swelling and redness likely secondary to streptococcal disease possible etiology could be groin area cutaneous candidiasis and skin Excoriation. 2patient with a borderline kidney function high risk of nephrotoxicity from vancomycin. 3we will discontinue the vancomycin. 4start the patient on cefazolin 3 g every 8 hours and clindamycin 900 g every 8 hour. 5nystatin powder to bilateral groin area twice a day We will follow on clinical condition and cultures to further adjust medication if needed Thank you for this consultation will follow this patient along with you Time with Patient: Greater than 30
[2022-01-02] MEDS: CLINDAMYCIN 900 MG in DEXTROSE 5% IN WATER 50 ML IVPB SCH ×8 (00:22→22:51)
[2022-01-02] MEDS: HEPARIN SODIUM,PORCINE/PF 5,000 UNIT/0.5 ML SYRINGE SQ SCH ×4 (00:22→22:50)
[2022-01-02] MEDS: ceFAZolin 3 GM in SODIUM CHLORIDE 0.9% 100 ML IVPB SCH ×4 (00:23→22:51)
[2022-01-02] MEDS: NYSTATIN 100,000 UNIT/GM POWD 15 GM TOPICAL SCH ×3 (00:53→20:23)
[2022-01-02] MEDS: CHOLECALCIFEROL 25 MCG (1000 IU) TABLET PO SCH (07:16)
[2022-01-02] MEDS: METOPROLOL TARTRATE 25 MG TAB PO SCH ×2 (07:16→19:52)
[2022-01-02] MEDS: hydroCHLOROthiazide 25 MG TAB PO SCH (07:16)
[2022-01-02] MEDS: CYANOCOBALAMIN 500 MCG TAB PO SCH (07:16)
[2022-01-02] MEDS: PANTOPRAZOLE 40 MG TABLET PO SCH (07:16)
[2022-01-02 10:53] LABS: Basophils # (A) 0.02 X 10*3/uL (0.00-0.10); Basophils % (A) 0.2 %; Eosinophils # (A) 0 X 10*3/uL (0.04-0.35); Eosinophils % (A) 0 %; HCT 36.5 % (39.6-50.0); HGB 11.4 g/dL (13.0-17.0); Immature Grans, Automated 0.3 %; Lymphocytes # (A) 0.33 X 10*3/uL (0.90-5.00); Lymphocytes % (A) 2.8 %; MCH 27.3 pg (27.0-32.0); MCHC 31.2 g/dL (32.0-37.0); MCV 87.5 fL (80.0-97.0); Mean Platelet Volume 11.4 fL (9.5-12.2); Monocytes # (A) 0.51 X 10*3/uL (0.20-1.00); Monocytes % (A) 4.4 %; NRBC Per 100 WBC 0 /100 WBCS (0.0-0.0); Neutrophils # (A) 10.81 X 10*3/uL (1.80-7.70); Neutrophils % (A) 92.3 %; Platelet Count 176 X 10*3/uL (140-440); RBC 4.17 X 10*6/uL (4.40-5.60); RDW 15.9 % (11.5-14.5); WBC 11.71 X 10*3/uL (4.50-10.00)
[2022-01-02 11:02] LABS: African American GFR (CKD) 46.3 (60.0-200.0); Anion Gap 12.8 mmol/L (10.00-18.00); BUN/Creat Ratio 16.71 Ratio (12.00-20.00); Blood Urea Nitrogen 28.9 mg/dL (9.0-27.0); C Reactive Protein 26.4 mg/dL (0.00-0.80); Calcium 7.9 mg/dL (8.7-10.3); Carbon Dioxide 24.4 mmol/L (20.0-27.5); Potassium 3.4 mmol/L (3.5-5.5)
--- NOTE | 2022-01-02 17:22 | P.PN ---
Subjective Progress Note Date: 01/02/22 Principal diagnosis: Severe extensive cellulitis of anterior abdominal wall Acute renal injury Electrolyte imbalance UTI Transaminitis 66-year-old male with past medical history remarkable for prior DVT, hypertension, prostate disorder no longer on anticoagulation who presents here to Department complaining of fatigue, shaking. Patient is also noticed that his pannus has turned red. This started yesterday. States he came in from outside and was feeling unwell. [place] fatigued. Noticed that his abdomen at that time was red below his belt line. This is abnormal for him. We did seek medical attention until today. Has had less of an appetite. Denies shortness of breath, chest pain. Denies abdominal pain, nausea, vomiting. Endorses generali zed fatigue. Denies urinary complaints at this time. Endorses generalized weakness. Has no known sick contacts. Denies pain over his pannus. This is for further evaluation of this time. Concerned for possible skin infection of his pannus. EKG shows no signs of acute ischemia. Laboratory studies are remarkable for leukocytosis of 18. Patient is a slightly elevated BUN/creatinine 25 and 1.29, likely secondary to mild MAU and dehydration. Lactic acid is within normal limits. Troponin is indeterminate. Urine studies are positive for blood but nothing else. No infection. Covid is negative. Chest x-ray shows no acute cardio primary process. Atelectasis present. CT abdomen and pelvis reveals no acute intra-abdominal process. No process in the abdominal wall. Patient has been switched to IV cefazolin 3 g every 8 hours along with clindamycin 900 mg every 8 hours; vancomycin is discontinued due to high risk of nephrotoxicity given borderline kidney function We will continue with current IV antibiotics and monitor CBC Objective - Vital Signs Vital signs: Vital Signs Temp 98.6 F 01/02/22 07:00 Pulse 61 01/02/22 07:00 Resp 16 01/02/22 07:00 BP 122/76 01/02/22 07:00 Pulse Ox 93 L 01/02/22 07:00 FiO2 Intake & Output 01/01/22 01/02/22 01/02/22 18:59 06:59 18:59 Intake Total 1080 Output Total 300 Balance 780 Intake: Oral 1080 Output: Urine 300 Other: Voiding Method Urinal Toilet Urinal # Voids 3 4 - Exam General: Appears in no acute distress. Febrile. HEAD: Normal with no signs of head trauma. EYES: PERRLA, EOMI, conjunctiva normal, no discharge. ENT: Hearing grossly intact, normal oropharynx. RESPIRATORY: Clear breath sounds bilaterally. No wheezes, rales, or rhonchi. C/V: Regular rate and rhythm. S1 and S2 auscultated, peripheral pulses 2+ and intact throughout ABD: Abd is soft, nontender, nondistended. Large BMI. EXT: Normal range of motion, no obvious deformity SKIN: Endorses erythematous, as well as warm. No crepitus. No induration. No fluctuance. Appears to be cellulitic over the pannus. Perineum unremarkable. NEURO: Alert and oriented 4. No focal deficits. Limitations: no limitations - Labs CBC & Chem 7: 01/02/22 06:38 01/02/22 06:38 Labs: Abnormal Lab Results - Last 24 Hours (Table) 01/02/22 01/02/22 01/02/22 Range/Units 06:38 06:38 06:38 WBC 11.71 H (4.50-10.00) X 10*3/uL RBC 4.17 L (4.40-5.60) X 10*6/uL Hgb 11.4 L (13.0-17.0) g/dL Hct 36.5 L (39.6-50.0) % MCHC 31.2 L (32.0-37.0) g/dL RDW 15.9 H (11.5-14.5) % Neutrophils # 10.81 H (1.80-7.70) X 10*3/uL Lymphocytes # 0.33 L (0.90-5.00) X 10*3/uL Eosinophils # 0 L (0.04-0.35) X 10*3/uL Potassium 3.4 L (3.5-5.5) mmol/L BUN 28.9 H (9.0-27.0) mg/dL Creatinine 1.7 H (0.6-1.5) mg/dL Est GFR (CKD-EPI)AfAm 46.3 L (60.0-200.0) Est GFR (CKD-EPI)NonAf 40.0 L (60.0-200.0) Glucose 120 H (70-110) mg/dL Calcium 7.9 L (8.7-10.3) mg/dL C-Reactive Protein 26.40 H (0.00-0.80) mg/dL Procalcitonin 8.32 H (0.02-0.09) ng/mL Microbiology - Last 24 Hours (Table) 12/31/21 18:37 Blood Culture - Preliminary Blood No Growth after 24 hours 12/31/21 18:30 Blood Culture - Preliminary Blood No Growth after 24 hours Assessment and Plan Assessment: 1. Severe extensive Cellulitis of abdominal wall - White blood count is markedly elevated at 18.3; patient is currently on IV vancomycin; cefazolin and clindamycin is added per ID recommendations - We will monitor CBC, CRP and pro-calcitonin - Consult ID for further recommendations 2. Acute renal injury; slowly IV fluid hydration in form of normal saline at rate of 75 mL an hour; we will monitor strict GARRY's, daily weights, renal function and electrolytes; avoid nephrotoxins and hypotension 3. Electrolyte imbalance/hypomagnesemia; supplemented in ED; we will monitor electrolytes and supplement as needed 4. Transaminitis; likely related to sepsis; monitor liver enzymes with plans for further workup if liver enzymes continue to trend up 5. UTI; blood culture and urine culture is obtained; further recommendations on ce culture results are available 6. Hypertension; losartan 50 mg daily; metoprolol 25 mg twice a day; hydrochlorothiazide 25 mg daily 7. BPH; Flomax 0.4 mg daily DVT prophylaxis; SCDs/subcu heparin CODE STATUS; full code
[2022-01-02] MEDS: ASPIRIN 81 MG PO SCH (19:51)
[2022-01-02] MEDS: TAMSULOSIN 0.4 MG CAP.ER.24H PO SCH (19:51)
[2022-01-02] MEDS: LOSARTAN 50 MG TAB PO SCH (19:51)
--- NOTE | 2022-01-02 23:01 | P.PN ---
Subjective Progress Note Date: 01/02/22 Principal diagnosis: Abdominal wall cellulitis Patient is a 66-year male with a past medical history significant for morbid obesity significant abdominal pannus and history of abdominal wall cellulitis presented to hospital with increasing redness and pain to lower abdo saman wall patient has been diagnosed with abdominal wall cellulitis. On today's evaluation that is 01/02/2022 the patient is afebrile patient is feeling slightly better abdominal discomfort and slight decrease denies any chest pain or shortness of breath or cough no nausea vomiting and no diarrhea Objective - Vital Signs Vital signs: Vital Signs Temp 98.6 F 01/02/22 07:00 Pulse 61 01/02/22 07:00 Resp 16 01/02/22 07:00 BP 122/76 01/02/22 07:00 Pulse Ox 93 L 01/02/22 07:00 FiO2 Intake & Output 01/01/22 01/02/22 01/02/22 18:59 06:59 18:59 Intake Total 1080 Output Total 300 Balance 780 Intake: Oral 1080 Output: Urine 300 Other: Voiding Method Urinal Toilet Urinal # Voids 3 4 - Exam GENERAL DESCRIPTION: Elderly male lying in bed, no distress. No tachypnea or accessory muscle of respiration use. LUNGS: Unlabored breathing. Clear to auscultation anteriorly. No wheeze or crackle. HEART: S1, S2, regular rate and rhythm. No loud murmur ABDOMEN: Soft, lower abdominal wall redness is slightly decreased in intensity EXTREMITIES: Diffuse swelling to bilateral lower extremity - Labs CBC & Chem 7: 01/02/22 06:38 01/02/22 06:38 Labs: Abnormal Lab Results - Last 24 Hours (Table) 01/02/22 01/02/22 01/02/22 Range/Units 06:38 06:38 06:38 WBC 11.71 H (4.50-10.00) X 10*3/uL RBC 4.17 L (4.40-5.60) X 10*6/uL Hgb 11.4 L (13.0-17.0) g/dL Hct 36.5 L (39.6-50.0) % MCHC 31.2 L (32.0-37.0) g/dL RDW 15.9 H (11.5-14.5) % Neutrophils # 10.81 H (1.80-7.70) X 10*3/uL Lymphocytes # 0.33 L (0.90-5.00) X 10*3/uL Eosinophils # 0 L (0.04-0.35) X 10*3/uL Potassium 3.4 L (3.5-5.5) mmol/L BUN 28.9 H (9.0-27.0) mg/dL Creatinine 1.7 H (0.6-1.5) mg/dL Est GFR (CKD-EPI)AfAm 46.3 L (60.0-200.0) Est GFR (CKD-EPI)NonAf 40.0 L (60.0-200.0) Glucose 120 H (70-110) mg/dL Calcium 7.9 L (8.7-10.3) mg/dL C-Reactive Protein 26.40 H (0.00-0.80) mg/dL Procalcitonin 8.32 H (0.02-0.09) ng/mL Microbiology - Last 24 Hours (Table) 12/31/21 18:37 Blood Culture - Preliminary Blood No Growth after 24 hours 12/31/21 18:30 Blood Culture - Preliminary Blood No Growth after 24 hours Assessment and Plan (1) Cellulitis of abdominal wall Current Visit: Yes Status: Acute Code(s): L03.311 - CELLULITIS OF ABDOMINAL WALL SNOMED Code(s): 45968129 Plan: 1-patient with extensive abdominal wall cellulitis in this patient with diffuse swelling and redness and concern for bilateral groin area cutaneous candidiasis likely streptococcal disease patient has shown some clinical improvement to continue with the cefazolin and clindamycin. 2continue with the nystatin powder bilateral groin area.
[2022-01-03] MEDS ORDERED: SODIUM CHLORIDE 0.9% 500 ML 500 ML IV ONE (09:16)
[2022-01-03] MEDS: CYANOCOBALAMIN 500 MCG TAB PO SCH (10:32)
[2022-01-03] MEDS: METOPROLOL TARTRATE 25 MG TAB PO SCH ×2 (10:32→20:32)
[2022-01-03] MEDS: CHOLECALCIFEROL 25 MCG (1000 IU) TABLET PO SCH (10:32)
[2022-01-03] MEDS: hydroCHLOROthiazide 25 MG TAB PO SCH (10:32)
[2022-01-03] MEDS: PANTOPRAZOLE 40 MG TABLET PO SCH (10:32)
[2022-01-03] MEDS: SODIUM CHLORIDE 0.9% 1,000 ML IV SCH (10:33)
[2022-01-03] MEDS: HEPARIN SODIUM,PORCINE/PF 5,000 UNIT/0.5 ML SYRINGE SQ SCH (10:33)
[2022-01-03] MEDS: ceFAZolin 3 GM in SODIUM CHLORIDE 0.9% 100 ML IVPB SCH ×3 (12:10→23:56)
[2022-01-03] MEDS: NYSTATIN 100,000 UNIT/GM POWD 15 GM TOPICAL SCH ×2 (12:11→20:32)
--- NOTE | 2022-01-03 12:45 | P.CRDCN ---
History of Present Illness Consult date: 01/03/22 Requesting physician: Priscila Santso Reason for Consult (text): atrial fibrillation Chief complaint: abdominal wall cellulitis History of present illness: This is a pleasant 66-year-old gentleman with a past medical history of hypertension, DVT and PE 4 years ago, not currently anticoagulated, prior nicotine dependence, and obesity. Presented to the emergency department mostly with complaints of abdominal wall redness, warmth and discomfort. Noted to have abdominal wall cellulitis with sepsis and initiated on cefazolin and clindamycin. Also had evidence of acute kidney injury. ID has been consulted. We were asked to see the patient in consultation for new onset paroxysmal atrial fibrillation. Patient was found to be in atrial fibrillation at around 7:30 this morning with a controlled ventricular response. In reviewing the telemetry strips it appears the patient had an episode of paroxysmal atrial fibrillation around 2:30 this morning that was brief and subsequently converted to sinus mechanism. He denies a history of atrial fibrillation. Denies any history of CAD, hyperlipidemia or diabetes. Denies any family history of CAD. He was previously anticoagulated on warfarin for the DVT/PE. He denies any complaints of palpitations, chest discomfort, PND. He has chronic lower extremity edema that is unchanged and chronic stable dyspnea on exertion, unchanged. Did have complaints of dizziness prior to admission but he feels is related to his infection. He is currently on metoprolol tartrate 25 mg by mouth twice a day, losartan 50 mg by mouth daily at bedtime and hydrochlorothiazide 25 mg by mouth daily. Pressure has been on the low side. Past Medical History Past Medical History: Deep Vein Thrombosis (DVT), Hypertension, Prostate Disorder, Pulmonary Embolus (PE) Additional Past Medical History / Comment(s): Epilepsy as a child, osteomyelitis in 1978, DVT/PE 2019, History of Any Multi-Drug Resistant Organisms: None Reported Past Surgical History: Joint Replacement Additional Past Surgical History / Comment(s): Bilateral knee replacement, right arm skin graft surgery as a child, left knee surgery for ostopmyelituis, fatty tissue removed from back of neck Past Anesthesia/Blood Transfusion Reactions: No Reported Reaction Past Psychological History: No Psychological Hx Reported Smoking Status: Former smoker Past Alcohol Use History: None Reported Additional Past Alcohol Use History / Comment(s): quit smoking age 39, started smoking age19's, was "light smoker" Past Drug Use History: None Reported - Past Family History Mother Family Medical History: Cancer Medications and Allergies Home Medications Medication Instructions Recorded Confirmed Type Aspirin [Adult Low Dose Aspirin EC] 81 mg PO HS 10/13/21 12/31/21 History Losartan [Cozaar] 50 mg PO HS 10/13/21 12/31/21 History Metoprolol Tartrate [Lopressor] 25 mg PO BID 10/13/21 12/31/21 History Tamsulosin [Flomax] 0.4 mg PO HS 10/13/21 12/31/21 History hydroCHLOROthiazide 25 mg PO DAILY 10/13/21 12/31/21 History Cholecalciferol [Vitamin D3 (25 50 mcg PO DAILY 11/16/21 12/31/21 History Mcg = 1000 Iu)] Cyanocobalamin (Vitamin B-12) 2,000 mcg PO DAILY 11/16/21 12/31/21 History [Vitamin B-12] Omeprazole [PriLOSEC] 40 mg PO DAILY #14 cap 11/22/21 12/31/21 Rx Allergies Allergy/AdvReac Type Severity Reaction Status Date / Time No Known Allergies Allergy Verified 12/31/21 21:12 Physical Exam Vitals: Vital Signs Temp Pulse Resp BP Pulse Ox 01/03/22 07:50 98.1 F 71 16 101/59 92 L 01/03/22 02:00 98.6 F 87 16 110/69 97 01/02/22 20:00 98.4 F 100 16 116/68 93 L 01/02/22 14:53 98.2 F 97 16 103/68 95 Intake and Output 01/02/22 01/03/22 01/03/22 22:59 06:59 14:59 Intake Total 1080 Balance 1080 Intake: Oral 1080 Other: Voiding Method Toilet Urinal # Voids 3 4 # Bowel Movements 2 2 PHYSICAL EXAMINATION: This is a 66-year-old male in no apparent distress at the time of my examination. VITAL SIGNS: Blood pressure 101/59, heart rate 71, respirations 16, temp 98.1F. Patient is 92 % on room air. HEENT: Head is atraumatic, normocephalic. Pupils are equal, round. Sclerae anicteric. Conjunctivae are clear. Mucous membranes of the mouth are moist. Neck is supple. No carotid bruit is heard. CHEST EXAMINATION: Clear to auscultation bilaterally. No wheezes rales or rh onchi. Respirations even and nonlabored. HEART EXAMINATION: Heart irregular rate and rhythm, positive S1 and S2. No S3. No S4. No clicks, rubs or murmurs. ABDOMEN: Obese with evidence of abdominal wall cellulitis. EXTREMITIES: 2+ peripheral pulses with evidence of peripheral edema and skin changes. NEUROLOGIC EXAMINATION: Patient is awake, alert and oriented x3. Results 01/02/22 06:38 01/02/22 06:38 Current Medications Generic Name Dose Route Start Last Admin Trade Name Freq PRN Reason Stop Dose Admin Acetaminophen 650 mg 01/01/22 00:00 Acetaminophen Tab 325 Mg Tab PO Q6HR PRN Mild Pain or Fever > 100.5 Aspirin 81 mg 01/01/22 21:00 01/02/22 19:51 Aspirin 81 Mg PO 81 mg HS STEPHANY Administration Cholecalciferol 50 mcg 01/01/22 09:00 01/03/22 10:32 Cholecalciferol 25 Mcg (1000 Iu) Tablet PO 50 mcg DAILY STEPHANY Administration Cyanocobalamin 2,000 mcg 01/01/22 09:00 01/03/22 10:32 Cyanocobalamin 500 Mcg Tab PO 2,000 mcg DAILY STEPHANY Administration Heparin Sodium (Porcine) 5,000 unit 01/01/22 00:00 01/03/22 10:33 Heparin Sodium,Porcine/Pf 5,000 Unit/0.5 Ml Syringe SQ 5,000 unit Q8HR STEPHANY Administration Hydrochlorothiazide 25 mg 01/01/22 09:00 01/03/22 10:32 Hydrochlorothiazide 25 Mg Tab PO Not Given DAILY STEPHANY Clindamycin Phosphate 900 mg/ 56 mls @ 50 mls/hr 01/01/22 16:00 01/02/22 22:51 Dextrose/Water IVPB 50 mls/hr Q8HR STEPHANY Administration Protocol Cefazolin Sodium 3 gm/ Sodium 100 mls @ 200 mls/hr 01/01/22 16:00 01/02/22 22:51 Chloride IVPB 200 mls/hr Q8HR STEPHANY Administration Protocol Sodium Chloride 1,000 mls @ 75 mls/hr 01/03/22 09:30 01/03/22 10:33 Saline 0.9% IV 75 mls/hr .[id number] STEPHANY Administration Ketorolac Tromethamine 15 mg 01/01/22 00:00 01/01/22 20:13 Ketorolac 15 Mg/Ml 1 Ml Vial IVP 01/06/22 00:01 15 mg Q6HR PRN Administration Moderate Pain Losartan Potassium 50 mg 01/01/22 21:00 01/02/22 19:51 Losartan 50 Mg Tab PO 50 mg HS STEPHANY Administration Metoprolol Tartrate 25 mg 01/01/22 09:00 01/03/22 10:32 Metoprolol Tartrate 25 Mg Tab PO 25 mg BID STEPHANY Administration Morphine Sulfate 4 mg 01/01/22 00:00 Morphine Sulfate 4 Mg/Ml Syringe IV Q4HR PRN Severe Pain Naloxone HCl 0.2 mg 12/31/21 21:02 Naloxone 0.4 Mg/Ml 1 Ml Vial IV Q2M PRN Opioid Reversal Nystatin 1 applic 01/01/22 21:00 01/02/22 20:23 Nystatin 100,000 Unit/Gm Powd 15 Gm TOPICAL 1 applic BID STEPHANY Administration Protocol Ondansetron HCl 4 mg 01/01/22 00:00 01/01/22 17:56 Ondansetron 4 Mg/2 Ml Vial IVP 4 mg Q8HR PRN Administration Nausea And Vomiting Pantoprazole Sodium 40 mg 01/01/22 09:00 01/03/22 10:32 Pantoprazole 40 Mg Tablet PO 40 mg DAILY STEPHANY Administration Tamsulosin HCl 0.4 mg 01/01/22 21:00 01/02/22 19:51 Tamsulosin 0.4 Mg Cap.Er.24h PO 0.4 mg HS STEPHANY Administration Intake and Output 01/02/22 01/03/22 01/03/22 22:59 06:59 14:59 Intake Total 1080 Balance 1080 Intake: Oral 1080 Other: Voiding Method Toilet Urinal # Voids 3 4 # Bowel Movements 2 2 01/02/22 06:38 01/02/22 06:38 EKG Interpretations (text) Atrial fibrillation with controlled ventricular rate Assessment and Plan Assessment: #1 abdominal wall cellulitis with sepsis #2 paroxysmal atrial fibrillation, rate controlled, CHADs VASC is at least 4 #3 acute kidney injury #4 hypertension #5 history of DVT and PE, previously anticoagulated on warfarin #6 morbid obesity Plan: From paint roller covermaker perspective will obtain a 2-D echo with Doppler study to assess cardiac structure and function. We will start him on Xarelto. Further recommendations will be made depending on clinical course and diagnostic findings. CHARTER COACH DRIVER note has been reviewed, I agree with a documented findings and plan of care. Patient was seen and examined.
[2022-01-03] MEDS: CLINDAMYCIN 900 MG in DEXTROSE 5% IN WATER 50 ML IVPB SCH ×4 (12:53→20:29)
[2022-01-03] MEDS: RIVAROXABAN 20 MG TAB PO SCH (17:15)
--- NOTE | 2022-01-03 18:30 | CA ---
Transthoracic Echo Report Name: Javi Garcia Age: 66 Gender: M : 1955 Exam Date: 01/03/2022 14:12 Exam Location: [facility] Ht (in): 70 Wt (lb): 440 Ordering Physician: Svetlana Matute Attending/Referring Phys: [id number], [facility] Speech And Language Clinician Flora Aldana RDCS Procedure CPT: Indications: atrial fibrillation Cardiac Hx: Technical Quality: Technically difficult study Contrast 1: Total Dose (mL): Contrast 2: Total Dose (mL): MEASUREMENTS (Male / Female) Normal Values 2D ECHO LV Diastolic Diameter PLAX 3.6 cm 4.2 - 5.9 / 3.9 - 5.3 cm LV Systolic Diameter PLAX 2.7 cm IVS Diastolic Thickness 1.5 cm 0.6 - 1.0 / 0.6 - 0.9 cm LVPW Diastolic Thickness 1.4 cm 0.6 - 1.0 / 0.6 - 0.9 cm LV Relative Wall Thickness 0.8 RV Internal Dim ED PLAX 3.8 cm LA Systolic Diameter LX 4.1 cm 3.0 - 4.0 / 2.7 - 3.8 cm M-MODE Aortic Root Diameter MM 3.9 cm MV E Point Septal Separation 0.5 cm AV Cusp Separation MM 2.4 cm DOPPLER AV Peak Velocity 95.6 cm/s AV Peak Gradient 3.7 mmHg MV Area PHT 4.8 cm??? MV Deceleration Time 101.6 ms TR Peak Velocity 242.0 cm/s TR Peak Gradient 23.4 mmHg Right Ventricular Systolic Press 27.4 mmHg FINDINGS Left Ventricle Left ventricular ejection fraction is estimated at 50-55 %. Left ventricular cavity size normal. Moderate concentric left ventricular hypertrophy. Right Ventricle Mild right ventricular dilatation. Right ventricular systolic pressure within normal limits. Right Atrium Normal right atrial size. Left Atrium Normal left atrial size. Mitral Valve Not well visualized Aortic Valve Not well visualized Tricuspid Valve Mild tricuspid regurgitation.structurally normal tricuspid valve. Pulmonic Valve Pulmonic valve not well visualized. Pericardium Normal pericardium. No pericardial effusion. Aorta Mild aortic dilatation at the level of the sinuses of valsalva 39 mm CONCLUSIONS 1. Left ventricle systolic function borderline normal 2. Valvular structures were not well visualized Technically difficult study. Previewed by: Dr. Oxana Epps MD (Electronically Signed) Final Date: 03 January 2022 18:29
[2022-01-03 18:36] LABS: African American GFR (CKD) 32.8 (60.0-200.0); Anion Gap 14.2 mmol/L (10.00-18.00); BUN/Creat Ratio 18.35 Ratio (12.00-20.00); Blood Urea Nitrogen 42.2 mg/dL (9.0-27.0); Carbon Dioxide 24.8 mmol/L (20.0-27.5); Magnesium 2.3 mg/dL (1.5-2.4); Non-African American GFR(CKD) 28.3 (60.0-200.0); Potassium 3.2 mmol/L (3.5-5.5)
[2022-01-03] MEDS: TAMSULOSIN 0.4 MG CAP.ER.24H PO SCH (20:32)
[2022-01-03] MEDS: LOSARTAN 50 MG TAB PO SCH (20:32)
[2022-01-03] MEDS: ASPIRIN 81 MG PO SCH (20:32)
[2022-01-03] MEDS ORDERED: POTASSIUM CHLORIDE ER 20 MEQ TAB.ER PO STA (20:34)
--- NOTE | 2022-01-03 21:26 | P.PN ---
Subjective 66-year-old male with past medical history remarkable for prior DVT, hypertension, prostate disorder no longer on anticoagulation who presents here to Department complaining of fatigue, shaking. Patient is also noticed that his pannus has turned red. This started yesterday. States he came in from outside and was feeling unwell. [place] fatigued. Noticed that his abdomen at that time was red below his belt line. This is abnormal for him. We did seek medical attention until today. Has had less of an appetite. Denies shortness of breath, chest pain. Denies abdominal pain, nausea, vomiting. Endorses generalized fatigue. Denies urinary complaints at this time. Endorses generalized weakness. Has no known sick contacts. Denies pain over his pannus. This is for further evaluation of this time. Concerned for possible skin infection of his pannus. EKG shows no signs of acute ischemia. Laboratory studies are remarkable for leukocytosis of 18. Patient is a slightly elevated BUN/creatinine 25 and 1.29, likely secondary to mild MAU and dehydration. Lactic acid is within normal limits. Troponin is indeterminate. Urine studies are positive for blood but nothing else. No infection. Covid is negative. Chest x-ray shows no acute cardio primary process. Atelectasis present. CT abdomen and pelvis reveals no acute intra-abdominal process. No process in the abdominal wall. Patient has been switched to IV cefazolin 3 g every 8 hours along with clindamycin 900 mg every 8 hours; vancomycin is discontinued due to high risk of nephrotoxicity given borderline kidney function We will continue with current IV antibiotics and monitor CBC 01/03/2022 Patient is alert and awake, lethargic, blood pressure is borderline this morning 103/68, baseline systolic blood pressure is 120-160 , his creatinine came back later on in the evening when trending up 2.3. Patient was not on IV fluids, Because of this a bolus of 500 mL presided and normal saline 75 mL/h, her blood pressure improved 119/52. Hold hydrochlorothiazide and losartan continue on home dose of metoprolol. Patient has evidence of A. 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 He is onCefazolin and Clindamycin. We'll check a bladder scan, discussed with bed side nurse Objective - Vital Signs Vital signs: Vital Signs Temp 98.1 F 01/03/22 07:50 Pulse 71 01/03/22 07:50 Resp 16 01/03/22 07:50 BP 101/59 01/03/22 07:50 Pulse Ox 92 L 01/03/22 07:50 FiO2 Intake & Output 01/02/22 01/03/22 01/03/22 18:59 06:59 18:59 Intake Total 1080 Balance 1080 Intake: Oral 1080 Other: Voiding Method Toilet Urinal # Voids 3 4 # Bowel Movements 2 2 - Exam GENERAL: The patient is alert and oriented x3, not in any acute distress. Well morbid obesity HEENT: Pupils are round and equally reacting to light. EOMI. No scleral icterus. No conjunctival pallor. Normocephalic, atraumatic. No pharyngeal erythema. No thyromegaly. CARDIOVASCULAR: S1 and S2 present. No murmurs, rubs, or gallops. PULMONARY: Chest is clear to auscultation, no wheezing or crackles. -ABDOMEN: Soft, nontender, nondistended, normoactive bowel sounds. No palpable organomegaly. Large pendulous abdomen due to obesity, with extensive area of cellulitis involving the lower half of the abdomen, with no clear open wound with some oozing of clear yellow secretion in the lower abdomen MUSCULOSKELETAL: No joint swelling or deformity. EXTREMITIES: No cyanosis, clubbing, or pedal edema. NEUROLOGICAL: Gross neurological examination did not reveal any focal deficits. SKIN: No rashes. no petechiae. - Labs CBC & Chem 7: 01/02/22 06:38 01/03/22 11:53 Labs: Microbiology - Last 24 Hours (Table) 12/31/21 18:37 Blood Culture - Preliminary Blood No Growth after 48 hours 12/31/21 18:30 Blood Culture - Preliminary Blood No Growth after 48 hours Assessment and Plan Assessment: Large abdominal wall cellulitis Sepsis with leukocytosis and tachycardia Hypotension, presented on admission New-onset A. fib with rate controlled Morbid obesity Acute kidney injury History of hypertension Benign prostatic hypertrophy Plan: This is a pleasant 66 years old male who presents with cellulitis, sepsis, hypertension, acute kidney injury Continue with the clindamycin and cefazolin and follow-up once culture Infectious disease team on the case Continue with IV fluid, hold hydrochlorothiazide and losartan, check a bladder scan Nephrology consult Continue with metoprolol Cardiology consult Labs and medication were reviewed.. Continue same treatment. Continue with symptomatic treatment. Resume home medication. Monitor lytes and vitals. DVT and GI prophylaxis. Further recommendations as per clinical course of the patient DVT prophylaxis: Subcutaneous heparin GI Prophylaxis: Ppi PT/OT: Pending Prognosis is guarded
[2022-01-04] MEDS: SODIUM CHLORIDE 0.9% 1,000 ML IV SCH ×3 (03:17→18:31)
[2022-01-04] MEDS: CLINDAMYCIN 900 MG in DEXTROSE 5% IN WATER 50 ML IVPB SCH ×6 (03:18→20:31)
[2022-01-04] MEDS: METOPROLOL TARTRATE 25 MG TAB PO SCH ×2 (08:45→20:31)
[2022-01-04] MEDS: CHOLECALCIFEROL 25 MCG (1000 IU) TABLET PO SCH (08:45)
[2022-01-04] MEDS: PANTOPRAZOLE 40 MG TABLET PO SCH (08:45)
[2022-01-04] MEDS: CYANOCOBALAMIN 500 MCG TAB PO SCH (08:45)
[2022-01-04] MEDS: hydroCHLOROthiazide 25 MG TAB PO SCH (08:46)
[2022-01-04] MEDS: ceFAZolin 3 GM in SODIUM CHLORIDE 0.9% 100 ML IVPB SCH ×2 (08:46→18:30)
[2022-01-04] MEDS: NYSTATIN 100,000 UNIT/GM POWD 15 GM TOPICAL SCH ×2 (08:48→20:32)
--- NOTE | 2022-01-04 10:22 | P.NPCON ---
History of Present Illness - Reason for Consult acute renal failure - History of Present Illness Patient is a 66-year-old male with history of hypertension, previous DVT. Patient was admitted to the hospital with complaints of increased drainage from his lower abdomen. Patient is morbidly obese with large pannus. He denied significant pain Patient denied any fever. He did have some fatigue and shaking prior to admission. Currently being treated for significant cellulitis of the lower abdomen. CT of the abdomen is negative Serum creatinine was 1.29 on admission and increased to 1.7 and then 2.3 ye sterday. Patient states he has been voiding Blood pressure had been low and patient was maintained on DEVONTE inhibitor's. He also received Toradol. CT was also done with IV contrast on 12/31/2021 Review of Systems As per HPI Past Medical History Past Medical History: Deep Vein Thrombosis (DVT), Hypertension, Prostate Disorder, Pulmonary Embolus (PE) Additional Past Medical History / Comment(s): Epilepsy as a child, osteomyelitis in 1978, DVT/PE 2019, History of Any Multi-Drug Resistant Organisms: None Reported Past Surgical History: Joint Replacement Additional Past Surgical History / Comment(s): Bilateral knee replacement, right arm skin graft surgery as a child, left knee surgery for ostopmyelituis, fatty tissue removed from back of neck Past Anesthesia/Blood Transfusion Reactions: No Reported Reaction Past Psychological History: No Psychological Hx Reported Smoking Status: Former smoker Past Alcohol Use History: None Reported Additional Past Alcohol Use History / Comment(s): quit smoking age 39, started smoking age19's, was "light smoker" Past Drug Use History: None Reported - Past Family History Mother Family Medical History: Cancer Medications and Allergies Home Medications Medication Instructions Recorded Confirmed Type Aspirin [Adult Low Dose Aspirin EC] 81 mg PO HS 10/13/21 12/31/21 History Losartan [Cozaar] 50 mg PO HS 10/13/21 12/31/21 History Metoprolol Tartrate [Lopressor] 25 mg PO BID 10/13/21 12/31/21 History Tamsulosin [Flomax] 0.4 mg PO HS 10/13/21 12/31/21 History hydroCHLOROthiazide 25 mg PO DAILY 10/13/21 12/31/21 History Cholecalciferol [Vitamin D3 (25 50 mcg PO DAILY 11/16/21 12/31/21 History Mcg = 1000 Iu)] Cyanocobalamin (Vitamin B-12) 2,000 mcg PO DAILY 11/16/21 12/31/21 History [Vitamin B-12] Omeprazole [PriLOSEC] 40 mg PO DAILY #14 cap 11/22/21 12/31/21 Rx Allergies Allergy/AdvReac Type Severity Reaction Status Date / Time No Known Allergies Allergy Verified 12/31/21 21:12 Physical Exam Vitals: Vital Signs Temp Pulse Pulse Resp BP Pulse Ox 01/04/22 08:00 97.8 F 90 18 130/77 96 01/04/22 01:56 98.6 F 87 17 109/68 98 01/03/22 20:00 98.6 F 78 16 129/73 95 01/03/22 14:32 97.7 F 79 16 119/52 97 Intake and Output 01/03/22 01/04/22 01/04/22 22:59 06:59 14:59 Intake Total 225 Balance 225 Intake: Intake, IV Titration 225 Amount Sodium Chloride 0.9% 1, 225 000 ml @ 75 mls/hr IV . [id number] [facility] Rx#:[id number] Other: Voiding Method Toilet Urinal # Voids 2 4 # Bowel Movements 0 Awake, comfortable, not in any acute distress Stokes alert oriented 3 Examination of the heart S1 and S2 Examination lungs bilateral breath sounds are heard Abdomen is soft nontender morbidly obese with peeling of the skin noted significant erythema and blistering Examination lower extremity shows edema 2+ bilaterally with chronic skin changes GATE AGENT exam grossly intact Results - Lab Results Most recent lab results Calcium 8.0 mg/dL (8.7-10.3) L 01/03/22 11:53 Magnesium 2.3 mg/dL (1.5-2.4) 01/03/22 11:53 01/02/22 06:38 01/03/22 11:53 Assessment and Plan Assessment: 1. Acute kidney injury ATN multifactorial including hypotension and the setting of use of DEVONTE inhibitor's as well as NSAIDs and contrast nephropathy. Currently patient is nonoliguric. All offending agents have been discontinued. Currently maintained on normal saline. UA shows large blood 1+ protein. No evidence of obstruction on CT of the abdomen done on initial admission 2. Sepsis with abdominal wall cellulitis maintained on antibiotics 3. New onset A. fib with controlled ventricular response 4. History of BPH 5. Morbid obesity 6. Hypokalemia Plan: May continue with the saline. Hold thiazide diuretics Replace potassium Avoid any further nephrotoxic agents Avoid hypotension Repeat labs in a.m. Accurate I's and O's
--- NOTE | 2022-01-04 12:25 | P.PN ---
Subjective Progress Note Date: 01/04/22 This is a pleasant 66-year-old gentleman with a past medical history of hypertension, DVT and PE 4 years ago, not currently anticoagulated, prior nicotine dependence, and obesity. Presented to the emergency department mostly with complaints of abdominal wall redness, warmth and discomfort. Noted to have abdominal wall cellulitis with sepsis and initiated on cefazolin and clindamycin. Also had evidence of acute kidney injury. ID has been consulted. We were asked to see the patient in consultation for new onset paroxysmal atrial fibrillation. Patient was found to be in atrial fibrillation at around 7:30 this morning with a controlled ventricular response. In reviewing the telemetry strips it appears the patient had an episode of paroxysmal atrial fibrillation around 2:30 this morning that was brief and subsequently converted to sinus mechanism. He denies a history of atrial fibrillation. Denies any history of CAD, hyperlipidemia or diabetes. Denies any family history of CAD. He was p reviously anticoagulated on warfarin for the DVT/PE. He denies any complaints of palpitations, chest discomfort, PND. He has chronic lower extremity edema that is unchanged and chronic stable dyspnea on exertion, unchanged. Did have complaints of dizziness prior to admission but he feels is related to his infection. He is currently on metoprolol tartrate 25 mg by mouth twice a day, losartan 50 mg by mouth daily at bedtime and hydrochlorothiazide 25 mg by mouth daily. Pressure has been on the low side. 01/04/2022 Patient was seen and examined sitting up in a chair. Has no complaints of pa lpitations, chest discomfort, dizziness or lightheadedness. He did not seem to feel the atrial fibrillation. Labs yesterday showed worsening renal function with a BUN of 42 and creatinine 2.3. Nephrology has been consulted and saw the patient this morning they have discontinued the losartan. Heart rates remained well-controlled he currently remains in atrial fibrillation. Echocardiogram done yesterday showed low-normal LV systolic function with an ejection fraction of 50-55%. Objective - Vital Signs Vital signs: Vital Signs Temp 97.8 F 01/04/22 08:00 Pulse 90 01/04/22 08:00 Resp 18 01/04/22 08:00 BP 130/77 01/04/22 08:00 Pulse Ox 96 01/04/22 08:00 FiO2 Intake & Output 01/03/22 01/04/22 01/04/22 18:59 06:59 18:59 Intake Total 1115 225 Output Total 400 Balance 1115 225 -400 Intake: Intake, IV Titration 575 225 Amount Sodium Chloride 0.9% 1, 75 225 000 ml @ 75 mls/hr IV . [id number] [facility] Rx#:[id number] Sodium Chloride 0.9% 500 500 ml 500 ml @ 999 mls/hr IV .Q31M [facility] Rx#:[id number] Oral 540 Output: Urine 400 Other: Voiding Method Toilet Toilet Toilet Urinal Urinal Urinal # Voids 2 4 # Bowel Movements 0 2 - Exam HEENT: Head is atraumatic, normocephalic. Pupils are equal, round. Sclerae anicteric. Conjunctivae are clear. Mucous membranes of the mouth are moist. Neck is supple. No carotid bruit is heard. CHEST EXAMINATION: Clear to auscultation bilaterally. No wheezes rales or rhonchi. Respirations even and nonlabored. HEART EXAMINATION: Heart irregular rate and rhythm, positive S1 and S2. No S3. No S4. No clicks, rubs or murmurs. ABDOMEN: Obese with evidence of abdominal wall cellulitis with blistering and weeping. EXTREMITIES: 2+ peripheral pulses with evidence of peripheral edema and skin changes. NEUROLOGIC EXAMINATION: Patient is awake, alert and oriented x3. - Labs CBC & Chem 7: 01/02/22 06:38 01/03/22 11:53 Labs: Abnormal Lab Results - Last 24 Hours (Table) 01/03/22 Range/Units 11:53 Potassium 3.2 L (3.5-5.5) mmol/L BUN 42.2 H (9.0-27.0) mg/dL Creatinine 2.3 H (0.6-1.5) mg/dL Est GFR (CKD-EPI)AfAm 32.8 L (60.0-200.0) Est GFR (CKD-EPI)NonAf 28.3 L (60.0-200.0) Glucose 115 H (70-110) mg/dL Calcium 8.0 L (8.7-10.3) mg/dL Microbiology - Last 24 Hours (Table) 01/03/22 12:41 Gram Stain - Preliminary Abdomen Wound Culture - Preliminary Gram Neg Bacilli 12/31/21 18:37 Blood Culture - Preliminary Blood No Growth after 72 hours 12/31/21 18:30 Blood Culture - Preliminary Blood No Growth after 72 hours 01/03/22 12:41 Anaerobic Culture - Preliminary Abdomen Assessment and Plan Assessment: #1 abdominal wall cellulitis with sepsis #2 persistent atrial fibrillation, rate controlled, CHADs VASC is at least 4 #3 acute kidney injury #4 hypertension #5 history of DVT and PE, previously anticoagulated on warfarin #6 morbid obesity Plan: From parole or probation officer perspective we will continue current dose of Xarelto. Continue to monitor renal function and will make adjustments accordingly if needed. Further recommendations will be made depending on clinical course and diagnostic findings. ETHICS INSTRUCTOR note has been reviewed, I agree with a documented findings and plan of care. Patient was seen and examined.
[2022-01-04] MEDS: RIVAROXABAN 20 MG TAB PO SCH (18:30)
[2022-01-04] MEDS: ASPIRIN 81 MG PO SCH (20:31)
[2022-01-04] MEDS: TAMSULOSIN 0.4 MG CAP.ER.24H PO SCH (20:31)
--- NOTE | 2022-01-04 20:58 | P.PN ---
Subjective 66-year-old male with past medical history remarkable for prior DVT, hypertension, prostate disorder no longer on anticoagulation who presents here to Department complaining of fatigue, shaking. Patient is also noticed that his pannus has turned red. This started yesterday. States he came in from outside and was feeling unwell. [place] fatigued. Noticed that his abdomen at that time was red below his belt line. This is abnormal for him. We did seek medical attention until today. Has had less of an appetite. Denies shortness of breath, chest pain. Denies abdominal pain, nausea, vomiting. Endorses generalized fatigue. Denies urinary complaints at this time. Endorses generalized weakness. Has no known sick contacts. Denies pain over his pannus. This is for further evaluation of this time. Concerned for possible skin infection of his pannus. EKG shows no signs of acute ischemia. Laboratory studies are remarkable for leukocytosis of 18. Patient is a slightly elevated BUN/creatinine 25 and 1.29, likely secondary to mild MAU and dehydration. Lactic acid is within normal limits. Troponin is indeterminate. Urine studies are positive for blood but nothing else. No infection. Covid is negative. Chest x-ray shows no acute cardio primary process. Atelectasis present. CT abdomen and pelvis reveals no acute intra-abdominal process. No process in the abdominal wall. Patient has been switched to IV cefazolin 3 g every 8 hours along with clindamycin 900 mg every 8 hours; vancomycin is discontinued due to high risk of nephrotoxicity given borderline kidney function We will continue with current IV antibiotics and monitor CBC 01/03/2022 Patient is alert and awake, lethargic, blood pressure is borderline this morning 103/68, baseline systolic blood pressure is 120-160 , his creatinine came back later on in the evening when trending up 2.3. Patient was not on IV fluids, Because of this a bolus of 500 mL presided and normal saline 75 mL/h, her blood pressure improved 119/52. Hold hydrochlorothiazide and losartan continue on home dose of metoprolol. Patient has evidence of A. fib with rate control, athlete manager consulted Patient has large area of abdominal wall cellulitis, his abdomen is large in size and pendulous, and the lower part there is some clear yellow discharge which is sent for culture. He is onCefazolin and Clindamycin. We'll check a bladder scan, discussed with bed side nurse 01/04/2022 patient abdominal wall cellulitis although it's is a large however earlier signs of regression however need to monitor it for another 24-48 hours to ensure improvement. Once culture is growing gram-negative bacilli and patient kept on cefazolin and clindamycin His creatinine 2.3 yesterday, repeat labs tomorrow. He kept normal saline. His blood pressure is stable. His hydrochlorothiazide and losartan on hold. Ejection fraction 50-55% Patient still looks dehydrated and he needs more IV fluids. He has new onset atrial fibrillation with rate controlled, cardiology started him on salt Objective - Vital Signs Vital signs: Vital Signs Temp 97.8 F 01/04/22 08:00 Pulse 90 01/04/22 08:00 Resp 18 01/04/22 08:00 BP 130/77 01/04/22 08:00 Pulse Ox 96 01/04/22 08:00 FiO2 Intake & Output 01/03/22 01/04/22 01/04/22 18:59 06:59 18:59 Intake Total 1115 225 Output Total 400 Balance 1115 225 -400 Intake: Intake, IV Titration 575 225 Amount Sodium Chloride 0.9% 1, 75 225 000 ml @ 75 mls/hr IV . [id number] [facility] Rx#:[id number] Sodium Chloride 0.9% 500 500 ml 500 ml @ 999 mls/hr IV .Q31M [facility] Rx#:[id number] Oral 540 Output: Urine 400 Other: Voiding Method Toilet Toilet Toilet Urinal Urinal Urinal # Voids 2 4 # Bowel Movements 0 2 - Exam GENERAL: The patient is alert and oriented x3, not in any acute distress. Well morbid obesity HEENT: Pupils are round and equally reacting to light. EOMI. No scleral icterus. No conjunctival pallor. Normocephalic, atraumatic. No pharyngeal erythema. No thyromegaly. CARDIOVASCULAR: S1 and S2 present. No murmurs, rubs, or gallops. PULMONARY: Chest is clear to auscultation, no wheezing or crackles. -ABDOMEN: Soft, nontender, nondistended, normoactive bowel sounds. No palpable organomegaly. Large pendulous abdomen due to obesity, with extensive area of cellulitis involving the lower half of the abdomen, with no clear open wound with some oozing of clear yellow secretion in the lower abdomen MUSCULOSKELETAL: No joint swelling or deformity. EXTREMITIES: No cyanosis, clubbing, or pedal edema. NEUROLOGICAL: Gross neurological examination did not reveal any focal deficits. SKIN: No rashes. no petechiae. - Labs CBC & Chem 7: 01/02/22 06:38 01/03/22 11:53 Labs: Abnormal Lab Results - Last 24 Hours (Table) 01/03/22 Range/Units 11:53 Potassium 3.2 L (3.5-5.5) mmol/L BUN 42.2 H (9.0-27.0) mg/dL Creatinine 2.3 H (0.6-1.5) mg/dL Est GFR (CKD-EPI)AfAm 32.8 L (60.0-200.0) Est GFR (CKD-EPI)NonAf 28.3 L (60.0-200.0) Glucose 115 H (70-110) mg/dL Calcium 8.0 L (8.7-10.3) mg/dL Microbiology - Last 24 Hours (Table) 01/03/22 12:41 Gram Stain - Preliminary Abdomen Wound Culture - Preliminary Gram Neg Bacilli 12/31/21 18:37 Blood Culture - Preliminary Blood No Growth after 72 hours 12/31/21 18:30 Blood Culture - Preliminary Blood No Growth after 72 hours 01/03/22 12:41 Anaerobic Culture - Preliminary Abdomen Assessment and Plan Assessment: Large abdominal wall cellulitis Sepsis with leukocytosis and tachycardia Hypotension, presented on admission New-onset A. fib with rate controlled Morbid obesity Acute kidney injury History of hypertension Benign prostatic hypertrophy Plan: This is a pleasant 66 years old male who presents with cellulitis, sepsis, hypertension, acute kidney injury Continue with the clindamycin and cefazolin and follow-up once culture Infectious disease team on the case Continue with IV fluid, hold hydrochlorothiazide and losartan, check a bladder scan Nephrology consult Continue with metoprolol Cardiology consult Labs and medication were reviewed.. Continue same treatment. Continue with symptomatic treatment. Resume home medication. Monitor lytes and vitals. DVT and GI prophylaxis. Further recommendations as per clinical course of the patient DVT prophylaxis: xarelto GI Prophylaxis: Ppi PT/OT: Home health care
--- NOTE | 2022-01-04 21:16 | P.PN ---
Subjective Progress Note Date: 01/03/22 Principal diagnosis: Abdominal wall cellulitis Patient is a 66-year male with a past medical history significant for morbid obesity significant abdominal pannus and history of abdominal wall cellulitis presented to hospital with increasing redness and pain to lower abdo saman wall patient has been diagnosed with abdominal wall cellulitis. On today's evaluation that is 01/03/2022 the patient continues to be afebrile patient is breathing comfortably on room air, the patient denies any chest pain shortness of cough abdominal swelling redness slightly decreased did have some blister formation of the right lower abdominal wall but no drainage Objective - Vital Signs Vital signs: Vital Signs Temp 98.1 F 01/03/22 07:50 Pulse 71 01/03/22 07:50 Resp 16 01/03/22 07:50 BP 101/59 01/03/22 07:50 Pulse Ox 92 L 01/03/22 07:50 FiO2 Intake & Output 01/02/22 01/03/22 01/03/22 18:59 06:59 18:59 Intake Total 1080 1115 Balance 1080 1115 Intake: Intake, IV Titration 575 Amount Sodium Chloride 0.9% 1, 75 000 ml @ 75 mls/hr IV . [id number] [facility] Rx#:[id number] Sodium Chloride 0.9% 500 500 ml 500 ml @ 999 mls/hr IV .Q31M [facility] Rx#:[id number] Oral 1080 540 Other: Voiding Method Toilet Toilet Urinal Urinal # Voids 3 4 2 # Bowel Movements 2 2 - Exam GENERAL DESCRIPTION: Elderly male lying in bed, no distress. No tachypnea or accessory muscle of respiration use. LUNGS: Unlabored breathing. Clear to auscultation anteriorly. No wheeze or crackle. HEART: S1, S2, regular rate and rhythm. No loud murmur ABDOMEN: Soft, lower abdominal wall redness is slightly decreased in intensity EXTREMITIES: Diffuse swelling to bilateral lower extremity - Labs CBC & Chem 7: 01/02/22 06:38 01/03/22 11:53 Labs: Microbiology - Last 24 Hours (Table) 12/31/21 18:37 Blood Culture - Preliminary Blood No Growth after 48 hours 12/31/21 18:30 Blood Culture - Preliminary Blood No Growth after 48 hours Assessment and Plan (1) Cellulitis of abdominal wall Current Visit: Yes Status: Acute Code(s): L03.311 - CELLULITIS OF ABDOMINAL WALL SNOMED Code(s): 66063547 Plan: 1-patient with extensive abdominal wall cellulitis in this patient with diffuse swelling and redness and concern for bilateral groin area cutaneous candidiasis likely streptococcal disease patient has shown some clinical improvement and the patient white count is trending down, patient to to continue with the cefazolin and clindamycin. 2patient to continue with the nystatin powder bilateral groin area. Time with Patient: Less than 30
--- NOTE | 2022-01-04 21:17 | P.PN ---
Subjective Progress Note Date: 01/04/22 Principal diagnosis: Abdominal wall cellulitis Patient is a 66-year male with a past medical history significant for morbid obesity significant abdominal pannus and history of abdominal wall cellulitis presented to hospital with increasing redness and pain to lower abdo saman wall patient has been diagnosed with abdominal wall cellulitis. On today's evaluation that is 01/04/2022 the patient denies having any fever or any chills, patient is breathing comfortably on room air, the patient denies any chest pain shortness of cough abdominal swelling redness slightly decreased , the patient did have some blister formation of the right lower abdominal wall which started draining yesterday and culture were ordered by medical team Objective - Vital Signs Vital signs: Vital Signs Temp 97.8 F 01/04/22 08:00 Pulse 90 01/04/22 08:00 Resp 18 01/04/22 08:00 BP 130/77 01/04/22 08:00 Pulse Ox 96 01/04/22 08:00 FiO2 Intake & Output 01/03/22 01/04/22 01/04/22 18:59 06:59 18:59 Intake Total 1115 225 Output Total 800 Balance 1115 225 -800 Intake: Intake, IV Titration 575 225 Amount Sodium Chloride 0.9% 1, 75 225 000 ml @ 75 mls/hr IV . [id number] [facility] Rx#:[id number] Sodium Chloride 0.9% 500 500 ml 500 ml @ 999 mls/hr IV .Q31M [facility] Rx#:[id number] Oral 540 Output: Urine 800 Other: Voiding Method Toilet Toilet Toilet Urinal Urinal Urinal # Voids 2 4 # Bowel Movements 0 2 - Exam GENERAL DESCRIPTION: Elderly male lying in bed, no distress. No tachypnea or accessory muscle of respiration use. LUNGS: Unlabored breathing. Clear to auscultation anteriorly. No wheeze or crackle. HEART: S1, S2, regular rate and rhythm. No loud murmur ABDOMEN: Soft, lower abdominal wall redness is slightly decreased in intensity EXTREMITIES: Diffuse swelling to bilateral lower extremity - Labs CBC & Chem 7: 01/02/22 06:38 01/03/22 11:53 Labs: Abnormal Lab Results - Last 24 Hours (Table) 01/03/22 Range/Units 11:53 Potassium 3.2 L (3.5-5.5) mmol/L BUN 42.2 H (9.0-27.0) mg/dL Creatinine 2.3 H (0.6-1.5) mg/dL Est GFR (CKD-EPI)AfAm 32.8 L (60.0-200.0) Est GFR (CKD-EPI)NonAf 28.3 L (60.0-200.0) Glucose 115 H (70-110) mg/dL Calcium 8.0 L (8.7-10.3) mg/dL Microbiology - Last 24 Hours (Table) 01/03/22 12:41 Gram Stain - Preliminary Abdomen Wound Culture - Preliminary Gram Neg Bacilli 12/31/21 18:37 Blood Culture - Preliminary Blood No Growth after 72 hours 12/31/21 18:30 Blood Culture - Preliminary Blood No Growth after 72 hours 01/03/22 12:41 Anaerobic Culture - Preliminary Abdomen Assessment and Plan (1) Cellulitis of abdominal wall Current Visit: Yes Status: Acute Code(s): L03.311 - CELLULITIS OF ABDOMINAL WALL SNOMED Code(s): 02843933 Plan: 1-patient with extensive abdominal wall cellulitis in this patient with diffuse swelling and redness and concern for bilateral groin area cutaneous candidiasis likely streptococcal disease patient has shown some clinical improvement however local culture now growing gram-negative will adjust antibiotic to cefepime and monitor clinical course closely 2patient to continue with the nystatin powder bilateral groin area. Time with Patient: Less than 30
[2022-01-04] MEDS: CEFEPIME 2 GM in SODIUM CHLORIDE 0.9% 100 ML IVPB SCH (21:50)
[2022-01-05] MEDS: PANTOPRAZOLE 40 MG TABLET PO SCH (09:24)
[2022-01-05] MEDS: CHOLECALCIFEROL 25 MCG (1000 IU) TABLET PO SCH (09:24)
[2022-01-05] MEDS: CYANOCOBALAMIN 500 MCG TAB PO SCH (09:24)
[2022-01-05] MEDS: CEFEPIME 2 GM in SODIUM CHLORIDE 0.9% 100 ML IVPB SCH (09:25)
[2022-01-05] MEDS: METOPROLOL TARTRATE 25 MG TAB PO SCH ×2 (09:25→20:39)
[2022-01-05] MEDS: NYSTATIN 100,000 UNIT/GM POWD 15 GM TOPICAL SCH ×2 (09:26→20:39)
[2022-01-05 10:49] LABS: Basophils # (A) 0.05 X 10*3/uL (0.00-0.10); Basophils % (A) 0.7 %; Eosinophils # (A) 0.17 X 10*3/uL (0.04-0.35); Eosinophils % (A) 2.3 %; HCT 40.5 % (39.6-50.0); Immature Grans, Automated 2.3 %; Lymphocytes # (A) 0.91 X 10*3/uL (0.90-5.00); Lymphocytes % (A) 12.2 %; MCH 27.1 pg (27.0-32.0); MCHC 32.1 g/dL (32.0-37.0); MCV 84.4 fL (80.0-97.0); Mean Platelet Volume 10.3 fL (9.5-12.2); Monocytes # (A) 0.81 X 10*3/uL (0.20-1.00); Monocytes % (A) 10.8 %; NRBC Per 100 WBC 0 /100 WBCS (0.0-0.0); Neutrophils # (A) 5.36 X 10*3/uL (1.80-7.70); Neutrophils % (A) 71.7 %; Platelet Count 256 X 10*3/uL (140-440); WBC 7.47 X 10*3/uL (4.50-10.00)
[2022-01-05 11:14] LABS: African American GFR (CKD) 44.2 (60.0-200.0); Anion Gap 14.4 mmol/L (10.00-18.00); BUN/Creat Ratio 25.39 Ratio (12.00-20.00); Blood Urea Nitrogen 45.7 mg/dL (9.0-27.0); Calcium 8.2 mg/dL (8.7-10.3); Carbon Dioxide 27.6 mmol/L (20.0-27.5); Magnesium 2.1 mg/dL (1.5-2.4); Non-African American GFR(CKD) 38.1 (60.0-200.0); Potassium 3.3 mmol/L (3.5-5.5)
--- NOTE | 2022-01-05 13:12 | P.PN ---
Subjective Progress Note Date: 01/05/22 This is a pleasant 66-year-old gentleman with a past medical history of hypertension, DVT and PE 4 years ago, not currently anticoagulated, prior nicotine dependence, and obesity. Presented to the emergency department mostly with complaints of abdominal wall redness, warmth and discomfort. Noted to have abdominal wall cellulitis with sepsis and initiated on cefazolin and clindamycin. Also had evidence of acute kidney injury. ID has been consulted. We were asked to see the patient in consultation for new onset paroxysmal atrial fibrillation. Patient was found to be in atrial fibrillation at around 7:30 this morning with a controlled ventricular response. In reviewing the telemetry strips it appears the patient had an episode of paroxysmal atrial fibrillation around 2:30 this morning that was brief and subsequently converted to sinus mechanism. He denies a history of atrial fibrillation. Denies any history of CAD, hyperlipidemia or diabetes. Denies any family history of CAD. He was p reviously anticoagulated on warfarin for the DVT/PE. He denies any complaints of palpitations, chest discomfort, PND. He has chronic lower extremity edema that is unchanged and chronic stable dyspnea on exertion, unchanged. Did have complaints of dizziness prior to admission but he feels is related to his infection. He is currently on metoprolol tartrate 25 mg by mouth twice a day, losartan 50 mg by mouth daily at bedtime and hydrochlorothiazide 25 mg by mouth daily. Pressure has been on the low side. 01/04/2022 Patient was seen and examined sitting up in a chair. Has no complaints of pa lpitations, chest discomfort, dizziness or lightheadedness. He did not seem to feel the atrial fibrillation. Labs yesterday showed worsening renal function with a BUN of 42 and creatinine 2.3. Nephrology has been consulted and saw the patient this morning they have discontinued the losartan. Heart rates remained well-controlled he currently remains in atrial fibrillation. Echocardiogram done yesterday showed low-normal LV systolic function with an ejection fraction of 50-55%. 01/05/2022 She was seen and examined today sitting up in a chair. He has no current complaints of palpitations, chest discomfort, dizziness or lightheadedness. Continues to be in atrial fibrillation with controlled ventricular rate however does not seem to feel less. Renal function shows some improvement today with creatinine of 1.8. Vital signs have been stable. There appears to be some improvement in the cellulitis. Cultures are pending. Continues to be followed by ID. Objective - Vital Signs Vital signs: Vital Signs Temp 97.7 F 01/05/22 08:00 Pulse 80 01/05/22 08:00 Resp 16 01/05/22 08:00 BP 113/78 01/05/22 08:00 Pulse Ox 99 01/05/22 08:00 FiO2 Intake & Output 01/04/22 01/05/22 01/05/22 18:59 06:59 18:59 Intake Total 1250 850 Output Total 1500 Balance -250 850 Weight 204 kg Intake: Intake, IV Titration 1250 Amount Clindamycin 900 mg In 50 Dextrose 5% in Water 50 ml @ 50 mls/hr IVPB Q8H [facility] Rx#:[id number] Sodium Chloride 0.9% 1, 1000 000 ml @ 75 mls/hr IV . [id number] [facility] Rx#:[id number] ceFAZolin 3 gm In Sodium 200 Chloride 0.9% 100 ml @ 200 mls/hr IVPB Q8HR [facility] Rx#:[id number] Oral 850 Output: Urine 1500 Other: Voiding Method Toilet Toilet Urinal Urinal # Voids 1 # Bowel Movements 2 - Exam HEENT: Head is atraumatic, normocephalic. Pupils are equal, round. Sclerae anicteric. Conjunctivae are clear. Mucous membranes of the mouth are moist. Neck is supple. No carotid bruit is heard. CHEST EXAMINATION: Clear to auscultation bilaterally. No wheezes rales or rhonchi. Respirations even and nonlabored. HEART EXAMINATION: Heart irregular rate and rhythm, positive S1 and S2. No S3. No S4. No clicks, rubs or murmurs. ABDOMEN: Obese with evidence of abdominal wall cellulitis with blistering and weeping. Some improvement noted since yesterday. EXTREMITIES: 2+ peripheral pulses with evidence of peripheral edema and skin changes. NEUROLOGIC EXAMINATION: Patient is awake, alert and oriented x3. - Labs CBC & Chem 7: 01/05/22 07:26 01/05/22 07:26 Labs: Abnormal Lab Results - Last 24 Hours (Table) 01/05/22 01/05/22 Range/Units 07: 07:26 RDW 16.0 H (11.5-14.5) % Immature Gran # 0.17 H (0.00-0.04) X 10*3/uL Potassium 3.3 L (3.5-5.5) mmol/L Carbon Dioxide 27.6 H (20.0-27.5) mmol/L BUN 45.7 H (9.0-27.0) mg/dL Creatinine 1.8 H (0.6-1.5) mg/dL Est GFR (CKD-EPI)AfAm 44.2 L (60.0-200.0) Est GFR (CKD-EPI)NonAf 38.1 L (60.0-200.0) BUN/Creatinine Ratio 25.39 H (12.00-20.00) Ratio Glucose 111 H (70-110) mg/dL Calcium 8.2 L (8.7-10.3) mg/dL Microbiology - Last 24 Hours (Table) 01/03/22 12:41 Gram Stain - Final Abdomen Wound Culture - Final Pseudomonas aeruginosa 12/31/21 18:37 Blood Culture - Preliminary Blood No Growth after 96 hours 12/31/21 18:30 Blood Culture - Preliminary Blood No Growth after 96 hours Assessment and Plan Assessment: #1 abdominal wall cellulitis with sepsis #2 persistent atrial fibrillation, rate controlled, CHADs VASC is at least 4 #3 acute kidney injury #4 hypertension #5 history of DVT and PE, previously anticoagulated on warfarin #6 morbid obesity Plan: From flavoring maker perspective we will continue current dose of Xarelto. Continue to monitor renal function and will make adjustments accordingly if needed. Further recommendations will be made depending on clinical course and diagnostic findings. LATHE SET UP PERSON note has been reviewed, I agree with a documented findings and plan of care. Patient was seen and examined.
[2022-01-05] MEDS: CEFTOLOZANE/TAZOBACTAM 0.75 GM in SODIUM CHLORIDE 0.9% 100 ML IV SCH ×2 (15:30→22:55)
[2022-01-05] MEDS: SODIUM CHLORIDE 0.9% 1,000 ML IV SCH (15:33)
[2022-01-05] MEDS: RIVAROXABAN 20 MG TAB PO SCH (16:49)
--- NOTE | 2022-01-05 20:13 | P.PN ---
Subjective 66-year-old male with past medical history remarkable for prior DVT, hypertension, prostate disorder no longer on anticoagulation who presents here to Department complaining of fatigue, shaking. Patient is also noticed that his pannus has turned red. This started yesterday. States he came in from outside and was feeling unwell. [place] fatigued. Noticed that his abdomen at that time was red below his belt line. This is abnormal for him. We did seek medical attention until today. Has had less of an appetite. Denies shortness of breath, chest pain. Denies abdominal pain, nausea, vomiting. Endorses generalized fatigue. Denies urinary complaints at this time. Endorses generalized weakness. Has no known sick contacts. Denies pain over his pannus. This is for further evaluation of this time. Concerned for possible skin infection of his pannus. EKG shows no signs of acute ischemia. Laboratory studies are remarkable for leukocytosis of 18. Patient is a slightly elevated BUN/creatinine 25 and 1.29, likely secondary to mild MAU and dehydration. Lactic acid is within normal limits. Troponin is indeterminate. Urine studies are positive for blood but nothing else. No infection. Covid is negative. Chest x-ray shows no acute cardio primary process. Atelectasis present. CT abdomen and pelvis reveals no acute intra-abdominal process. No process in the abdominal wall. Patient has been switched to IV cefazolin 3 g every 8 hours along with clindamycin 900 mg every 8 hours; vancomycin is discontinued due to high risk of nephrotoxicity given borderline kidney function We will continue with current IV antibiotics and monitor CBC 01/03/2022 Patient is alert and awake, lethargic, blood pressure is borderline this morning 103/68, baseline systolic blood pressure is 120-160 , his creatinine came back later on in the evening when trending up 2.3. Patient was not on IV fluids, Because of this a bolus of 500 mL presided and normal saline 75 mL/h, her blood pressure improved 119/52. Hold hydrochlorothiazide and losartan continue on home dose of metoprolol. Patient has evidence of A. 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 He is onCefazolin and Clindamycin. We'll check a bladder scan, discussed with bed side nurse 01/04/2022 patient abdominal wall cellulitis although it's is a large however earlier signs of regression however need to monitor it for another 24-48 hours to ensure improvement. Once culture is growing gram-negative bacilli and patient kept on cefazolin and clindamycin His creatinine 2.3 yesterday, repeat labs tomorrow. He kept normal saline. His blood pressure is stable. His hydrochlorothiazide and losartan on hold. Ejection fraction 50-55% Patient still looks dehydrated and he needs more IV fluids. He has new onset atrial fibrillation with rate controlled, cardiology started him on salt 01/05/2022 Patient with extensive abdominal wall cellulitis, she has huge pendulous abdomen due to obesity, cellulitis showing only mild partial improvement. Culture today is growing resistant strains of Pseudomonas and antibiotic was adjusted to zerbaxa every 8 hours. Per ID team recommendation Creatinine improvement 1.8, continue with normal saline 75 mm/h, blood pressure improved. Keep holding hydrochlorothiazide and losartan. Patient kept on his alto, risks and benefits explained for him including but not limited to risk of bleeding and he verbalized understanding and acceptance to continue with the treatment. Rate is controlled. PT OT recommended home versus home health care Objective - Vital Signs Vital signs: Vital Signs Temp 97.7 F 01/05/22 08:00 Pulse 80 01/05/22 08:00 Resp 16 01/05/22 08:00 BP 113/78 01/05/22 08:00 Pulse Ox 99 01/05/22 08:00 FiO2 Intake & Output 01/04/22 01/05/22 01/05/22 18:59 06:59 18:59 Intake Total 1250 850 Output Total 1500 Balance -250 850 Weight 204 kg Intake: Intake, IV Titration 1250 Amount Clindamycin 900 mg In 50 Dextrose 5% in Water 50 ml @ 50 mls/hr IVPB Q8H STEPHANY Rx#:[id number] Sodium Chloride 0.9% 1, 1000 000 ml @ 75 mls/hr IV . [id number] STEPHANY Rx#:[id number] ceFAZolin 3 gm In Sodium 200 Chloride 0.9% 100 ml @ 200 mls/hr IVPB Q8HR STEPHANY Rx#:[id number] Oral 850 Output: Urine 1500 Other: Voiding Method Toilet Toilet Urinal Urinal # Voids 1 # Bowel Movements 2 - Exam GENERAL: The patient is alert and oriented x3, not in any acute distress. Well morbid obesity HEENT: Pupils are round and equally reacting to light. EOMI. No scleral icterus. No conjunctival pallor. Normocephalic, atraumatic. No pharyngeal erythema. No thyromegaly. CARDIOVASCULAR: S1 and S2 present. No murmurs, rubs, or gallops. PULMONARY: Chest is clear to auscultation, no wheezing or crackles. -ABDOMEN: Soft, nontender, nondistended, normoactive bowel sounds. No palpable organomegaly. Large pendulous abdomen due to obesity, with extensive area of cellulitis involving the lower half of the abdomen, with no clear open wound wit h some oozing of clear yellow secretion in the lower abdomen MUSCULOSKELETAL: No joint swelling or deformity. EXTREMITIES: No cyanosis, clubbing, or pedal edema. NEUROLOGICAL: Gross neurological examination did not reveal any focal deficits. SKIN: No rashes. no petechiae. - Labs CBC & Chem 7: 01/05/22 07:26 01/05/22 07:26 Labs: Abnormal Lab Results - Last 24 Hours (Table) 01/05/22 01/05/22 Range/Units 07:26 07:26 RDW 16.0 H (11.5-14.5) % Immature Gran # 0.17 H (0.00-0.04) X 10*3/uL Potassium 3.3 L (3.5-5.5) mmol/L Carbon Dioxide 27.6 H (20.0-27.5) mmol/L BUN 45.7 H (9.0-27.0) mg/dL Creatinine 1.8 H (0.6-1.5) mg/dL Est GFR (CKD-EPI)AfAm 44.2 L (60.0-200.0) Est GFR (CKD-EPI)NonAf 38.1 L (60.0-200.0) BUN/Creatinine Ratio 25.39 H (12.00-20.00) Ratio Glucose 111 H (70-110) mg/dL Calcium 8.2 L (8.7-10.3) mg/dL Microbiology - Last 24 Hours (Table) 01/03/22 12:41 Gram Stain - Final Abdomen Wound Culture - Final Pseudomonas aeruginosa 12/31/21 18:37 Blood Culture - Preliminary Blood No Growth after 96 hours 12/31/21 18:30 Blood Culture - Preliminary Blood No Growth after 96 hours Assessment and Plan Assessment: Extensive abdominal wall cellulitis, secondary to resistant strains of Pseudomonas Acute kidney injury, improving Sepsis improved New-onset A. fib with rate controlled Morbid obesity History of hypertension Benign prostatic hypertrophy Plan: This is a pleasant 66 years old male who presents with cellulitis, sepsis, hypertension, acute kidney injury Continue with the [facility] Infectious disease team on the case Continue with IV fluid, hold hydrochlorothiazide and losartan, Nephrology consult Continue with metoprolol Cardiology consult Labs and medication were reviewed.. Continue same treatment. Continue with symptomatic treatment. Resume home medication. Monitor lytes and vitals. DVT and GI prophylaxis. Further recommendations as per clinical course of the patient DVT prophylaxis: xarelto GI Prophylaxis: Ppi PT/OT: Home health care
[2022-01-05] MEDS: ASPIRIN 81 MG PO SCH (20:39)
[2022-01-05] MEDS: TAMSULOSIN 0.4 MG CAP.ER.24H PO SCH (20:39)
[2022-01-06] MEDS: CHOLECALCIFEROL 25 MCG (1000 IU) TABLET PO SCH (07:07)
[2022-01-06] MEDS: CYANOCOBALAMIN 500 MCG TAB PO SCH (07:07)
[2022-01-06] MEDS: METOPROLOL TARTRATE 25 MG TAB PO SCH ×2 (07:07→20:19)
[2022-01-06] MEDS: CEFTOLOZANE/TAZOBACTAM 0.75 GM in SODIUM CHLORIDE 0.9% 100 ML IV SCH (07:08)
[2022-01-06] MEDS: PANTOPRAZOLE 40 MG TABLET PO SCH (07:08)
[2022-01-06] MEDS: NYSTATIN 100,000 UNIT/GM POWD 15 GM TOPICAL SCH ×2 (07:10→20:18)
[2022-01-06] MEDS: SODIUM CHLORIDE 0.9% 1,000 ML IV SCH (07:22)
--- NOTE | 2022-01-06 08:16 | P.PN ---
Subjective Progress Note Date: 01/05/22 Principal diagnosis: Abdominal wall cellulitis Patient is a 66-year male with a past medical history significant for morbid obesity significant abdominal pannus and history of abdominal wall cellulitis presented to hospital with increasing redness and pain to lower abdo saman wall patient has been diagnosed with abdominal wall cellulitis. On today's evaluation that is 01/05/2022 the patient remains to be afebrile, patient is breathing comfortably on room air, the patient denies any chest pain shortness of cough, the patient lower abdominal swelling redness slightly decreased , the patient did have some drainage from the lower abdominal area Objective - Vital Signs Vital signs: Vital Signs Temp 98.4 F 01/05/22 16:10 Pulse 80 01/05/22 16:10 Resp 18 01/05/22 16:10 BP 117/81 01/05/22 16:10 Pulse Ox 96 01/05/22 16:10 FiO2 Intake & Output 01/05/22 14:59 Output Total 400 Balance -400 Weight Output: Urine 400 Other: Voiding Method - Exam GENERAL DESCRIPTION: Elderly male lying in bed, no distress. No tachypnea or accessory muscle of respiration use. LUNGS: Unlabored breathing. Clear to auscultation anteriorly. No wheeze or crackle. HEART: S1, S2, regular rate and rhythm. No loud murmur ABDOMEN: Soft, lower abdominal wall redness is slightly decreased in intensity EXTREMITIES: Diffuse swelling to bilateral lower extremity - Labs CBC & Chem 7: 01/05/22 07:26 01/05/22 07:26 Labs: Abnormal Lab Results - Last 24 Hours (Table) 01/05/22 01/05/22 Range/Units 07:26 07:26 RDW 16.0 H (11.5-14.5) % Immature Gran # 0.17 H (0.00-0.04) X 10*3/uL Potassium 3.3 L (3.5-5.5) mmol/L Carbon Dioxide 27.6 H (20.0-27.5) mmol/L BUN 45.7 H (9.0-27.0) mg/dL Creatinine 1.8 H (0.6-1.5) mg/dL Est GFR (CKD-EPI)AfAm 44.2 L (60.0-200.0) Est GFR (CKD-EPI)NonAf 38.1 L (60.0-200.0) BUN/Creatinine Ratio 25.39 H (12.00-20.00) Ratio Glucose 111 H (70-110) mg/dL Calcium 8.2 L (8.7-10.3) mg/dL Microbiology - Last 24 Hours (Table) 12/31/21 18:37 Blood Culture - Preliminary Blood No Growth after 120 hours 12/31/21 18:30 Blood Culture - Preliminary Blood No Growth after 120 hours 01/03/22 12:41 Gram Stain - Final Abdomen Wound Culture - Final Pseudomonas aeruginosa Assessment and Plan (1) Cellulitis of abdominal wall Current Visit: Yes Status: Acute Code(s): L03.311 - CELLULITIS OF ABDOMINAL WALL SNOMED Code(s): 49850313 Plan: 1-patient with extensive abdominal wall cellulitis in this patient with diffuse swelling and redness and concern for bilateral groin area cutaneous candidiasis likely streptococcal disease patient has shown some clinical improvement however local culture now growing gram-negative which has been finalized with a mult idrug-resistant pseudomonas, and debridement was switched over to Zerbexa, patient will need a PICC line and outpatient IV antibiotics 2patient to continue with the nystatin powder bilateral groin area. Time with Patient: Less than 30
--- NOTE | 2022-01-06 11:05 | P.PN ---
Subjective Progress Note Date: 01/06/22 HISTORY OF PRESENT ILLNESS: This is a pleasant 66-year-old gentleman with a past medical history of hypertension, DVT and PE 4 years ago, not currently anticoagulated, prior nicotine dependence, and obesity. Presented to the emergency department mostly with complaints of abdominal wall redness, warmth and discomfort. Noted to have abdominal wall cellulitis with sepsis and initiated on cefazolin and clindamycin. Also had evidence of acute kidney injury. ID has been consulted. We were asked to see the patient in consultation for new onset paroxysmal atrial fibrillation. Patient was found to be in atrial fibrillation at around 7:30 this morning with a controlled ventricular response. In reviewing the telemetry strips it appears the patient had an episode of paroxysmal atrial fibrillation around 2:30 this morning that was brief and subsequently converted to sinus me chanism. He denies a history of atrial fibrillation. Denies any history of CAD, hyperlipidemia or diabetes. Denies any family history of CAD. He was previously anticoagulated on warfarin for the DVT/PE. He denies any complaints of palpitations, chest discomfort, PND. He has chronic lower extremity edema that is unchanged and chronic stable dyspnea on exertion, unchanged. Did have complaints of dizziness prior to admission but he feels is related to his infection. He is currently on metoprolol tartrate 25 mg by mouth twice a day, losartan 50 mg by mouth daily at bedtime and hydrochlorothiazide 25 mg by mouth daily. Pressure has been on the low side. 01/04/2022 Patient was seen and examined sitting up in a chair. Has no complaints of palpitations, chest discomfort, dizziness or lightheadedness. He did not seem to feel the atrial fibrillation. Labs yesterday showed worsening renal function with a BUN of 42 and creatinine 2.3. Nephrology has been consulted and saw the patient this morning they have discontinued the losartan. Heart rates remained well-controlled he currently remains in atrial fibrillation. Echocardiogram done yesterday showed low-normal LV systolic function with an ejection fraction of 50-55%. 01/05/2022 She was seen and examined today sitting up in a chair. He has no current complaints of palpitations, chest discomfort, dizziness or lightheadedness. Continues to be in atrial fibrillation with controlled ventricular rate however does not seem to feel less. Renal function shows some improvement today with creatinine of 1.8. Vital signs have been stable. There appears to be some improvement in the cellulitis. Cultures are pending. Continues to be followed by ID. 01/06/2022 Patient examined this morning. Patient is sitting up in the chair. Patient denies chest pain or pressure. He denies shortness of breath. Telemetry reveals atrial fibrillation with controlled ventricular rate. Patient denies any palpitations. Patient reports improvement in his abdominal cellulitis. Vital signs are stable. Blood pressure 117/81. PHYSICAL EXAM: VITAL SIGNS: Reviewed. GENERAL: Well-developed in no acute distress. NECK: Supple. No JVD or thyromegaly LUNGS: Respirations even and unlabored. Lungs essentially clear to auscultation bilaterally. HEART: Irregular rate and rhythm. S1 and S2 heard. EXTREMITIES: Normal range of motion. No clubbing or cyanosis. Peripheral pulses intact. 1+ bilateral lower extremity edema ASSESSMENT: #1 abdominal wall cellulitis with sepsis #2 persistent atrial fibrillation, rate controlled, CHADs VASC is at least 4 #3 acute kidney injury #4 hypertension #5 history of DVT and PE, previously anticoagulated on warfarin #6 morbid obesity PLAN: Continue current cardiac medications Continue telemetry monitoring Continue anticoagulation with Xarelto Further recommendations pending patient's course Nurse practitioner note has been reviewed by physician. Signing provider agrees with the documented findings, assessment, and plan of care. Objective - Vital Signs Vital signs: Vital Signs Temp 98.4 F 01/06/22 07:10 Pulse 80 01/06/22 07:10 Resp 18 01/06/22 07:10 BP 117/81 01/06/22 07:10 Pulse Ox 96 01/06/22 07:10 FiO2 Intake & Output 01/05/22 01/06/22 01/06/22 18:59 06:59 18:59 Output Total 400 1075 Balance -400 -1075 Weight 202 kg Output: Urine 400 1075 Other: Voiding Method Toilet Toilet Urinal Urinal - Labs CBC & Chem 7: 01/05/22 07:26 01/05/22 07:26 Labs: Abnormal Lab Results - Last 24 Hours (Table) 01/05/22 Range/Units 07:26 Potassium 3.3 L (3.5-5.5) mmol/L Carbon Dioxide 27.6 H (20.0-27.5) mmol/L BUN 45.7 H (9.0-27.0) mg/dL Creatinine 1.8 H (0.6-1.5) mg/dL Est GFR (CKD-EPI)AfAm 44.2 L (60.0-200.0) Est GFR (CKD-EPI)NonAf 38.1 L (60.0-200.0) BUN/Creatinine Ratio 25.39 H (12.00-20.00) Ratio Glucose 111 H (70-110) mg/dL Calcium 8.2 L (8.7-10.3) mg/dL Microbiology - Last 24 Hours (Table) 12/31/21 18:37 Blood Culture - Preliminary Blood No Growth after 120 hours 12/31/21 18:30 Blood Culture - Preliminary Blood No Growth after 120 hours 01/03/22 12:41 Gram Stain - Final Abdomen Wound Culture - Final Pseudomonas aeruginosa
--- NOTE | 2022-01-06 11:05 | P.PN ---
Subjective Patient is seen for follow-up for acute kidney injury mostly associated with some degree of hypoperfusion, NSAIDs in the setting of low blood pressure. Patient is maintained on IV fluids Renal function has improved with serum creatinine down to 1.8 mg/dL Abdominal cellulitis is improving. Objective - Vital Signs Vital signs: Vital Signs Temp 98.4 F 01/06/22 07:10 Pulse 80 01/06/22 07:10 Resp 18 01/06/22 07:10 BP 117/81 01/06/22 07:10 Pulse Ox 96 01/06/22 07:10 FiO2 Intake & Output 01/05/22 01/06/22 01/06/22 18:59 06:59 18:59 Output Total 400 1075 Balance -400 -1075 Weight 202 kg Output: Urine 400 1075 Other: Voiding Method Toilet Toilet Urinal Urinal - Exam Awake, comfortable, not in any acute distress Examination of the heart S1 and S2 Examination of the lungs bilateral breath sounds are heard Abdomen is soft morbidly obese with abdominal wall cellulitis currently slightly improved Examination of the lower extremities shows edema 2+ bilaterally with chronic skin changes FLOW MATCH [employer] exam grossly intact - Labs CBC & Chem 7: 01/05/22 07:26 01/05/22 07:26 Labs: Abnormal Lab Results - Last 24 Hours (Table) 01/05/22 Range/Units 07:26 Potassium 3.3 L (3.5-5.5) mmol/L Carbon Dioxide 27.6 H (20.0-27.5) mmol/L BUN 45.7 H (9.0-27.0) mg/dL Creatinine 1.8 H (0.6-1.5) mg/dL Est GFR (CKD-EPI)AfAm 44.2 L (60.0-200.0) Est GFR (CKD-EPI)NonAf 38.1 L (60.0-200.0) BUN/Creatinine Ratio 25.39 H (12.00-20.00) Ratio Glucose 111 H (70-110) mg/dL Calcium 8.2 L (8.7-10.3) mg/dL Microbiology - Last 24 Hours (Table) 12/31/21 18:37 Blood Culture - Preliminary Blood No Growth after 120 hours 12/31/21 18:30 Blood Culture - Preliminary Blood No Growth after 120 hours 01/03/22 12:41 Gram Stain - Final Abdomen Wound Culture - Final Pseudomonas aeruginosa Assessment and Plan Assessment: 1. Acute kidney injury ATN multifactorial including hypotension and the setting of use of DEVONTE inhibitor's as well as NSAIDs and contrast nephropathy. Currently patient is nonoliguric. All offending agents have been discontinued. Currently maintained on normal saline. UA shows large blood 1+ protein. No evidence of obstruction on CT of the abdomen done on initial admission 2. Sepsis with abdominal wall cellulitis maintained on antibiotics 3. New onset A. fib with controlled ventricular response 4. History of BPH 5. Morbid obesity 6. Hypokalemia Plan: Replace potassium DC IV fluids Encourage increased oral intake Repeat labs in a.m.
[2022-01-06 11:39] LABS: African American GFR (CKD) 56 (>60 ml/min/1.73 sqM); Anion Gap 10 mmol/L; Blood Urea Nitrogen 42 mg/dL (9-20); Calcium 8.3 mg/dL (8.4-10.2); Carbon Dioxide 32 mmol/L (22-30); Chloride 100 mmol/L (98-107); Glucose 109 mg/dL (74-99); Non-African American GFR(CKD) 48 (>60 ml/min/1.73 sqM); Potassium 4.5 mmol/L (3.5-5.1); Sodium 142 mmol/L (137-145)
[2022-01-06] MEDS: CEFTOLOZANE/TAZOBACTAM 1.5 GM in SODIUM CHLORIDE 0.9% 100 ML IV SCH ×2 (16:50→23:28)
[2022-01-06] MEDS: RIVAROXABAN 20 MG TAB PO SCH (16:50)
--- NOTE | 2022-01-06 19:37 | P.PN ---
Subjective 66-year-old male with past medical history remarkable for prior DVT, hypertension, prostate disorder no longer on anticoagulation who presents here to Department complaining of fatigue, shaking. Patient is also noticed that his pannus has turned red. This started yesterday. States he came in from outside and was feeling unwell. [place] fatigued. Noticed that his abdomen at that time was red below his belt line. This is abnormal for him. We did seek medical attention until today. Has had less of an appetite. Denies shortness of breath, chest pain. Denies abdominal pain, nausea, vomiting. Endorses generalized fatigue. Denies urinary complaints at this time. Endorses generalized weakness. Has no known sick contacts. Denies pain over his pannus. This is for further evaluation of this time. Concerned for possible skin infection of his pannus. EKG shows no signs of acute ischemia. Laboratory studies are remarkable for leukocytosis of 18. Patient is a slightly elevated BUN/creatinine 25 and 1.29, likely secondary to mild MAU and dehydration. Lactic acid is within normal limits. Troponin is indeterminate. Urine studies are positive for blood but nothing else. No infection. Covid is negative. Chest x-ray shows no acute cardio primary process. Atelectasis present. CT abdomen and pelvis reveals no acute intra-abdominal process. No process in the abdominal wall. Patient has been switched to IV cefazolin 3 g every 8 hours along with clindamycin 900 mg every 8 hours; vancomycin is discontinued due to high risk of nephrotoxicity given borderline kidney function We will continue with current IV antibiotics and monitor CBC 01/03/2022 Patient is alert and awake, lethargic, blood pressure is borderline this morning 103/68, baseline systolic blood pressure is 120-160 , his creatinine came back later on in the evening when trending up 2.3. Patient was not on IV fluids, Because of this a bolus of 500 mL presided and normal saline 75 mL/h, her blood pressure improved 119/52. Hold hydrochlorothiazide and losartan continue on home dose of metoprolol. Patient has evidence of A. 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 He is onCefazolin and Clindamycin. We'll check a bladder scan, discussed with bed side nurse 01/04/2022 patient abdominal wall cellulitis although it's is a large however earlier signs of regression however need to monitor it for another 24-48 hours to ensure improvement. Once culture is growing gram-negative bacilli and patient kept on cefazolin and clindamycin His creatinine 2.3 yesterday, repeat labs tomorrow. He kept normal saline. His blood pressure is stable. His hydrochlorothiazide and losartan on hold. Ejection fraction 50-55% Patient still looks dehydrated and he needs more IV fluids. He has new onset atrial fibrillation with rate controlled, cardiology started him on salt 01/05/2022 Patient with extensive abdominal wall cellulitis, she has huge pendulous abdomen due to obesity, cellulitis showing only mild partial improvement. Culture today is growing resistant strains of Pseudomonas and antibiotic was adjusted to zerbaxa every 8 hours. Per ID team recommendation Creatinine improvement 1.8, continue with normal saline 75 mm/h, blood pressure improved. Keep holding hydrochlorothiazide and losartan. Patient kept on his alto, risks and benefits explained for him including but not limited to risk of bleeding and he verbalized understanding and acceptance to continue with the treatment. Rate is controlled. PT OT recommended home versus home health care 01/06/2022 abdominal cellulitis significantly improving. Patient culture is growing multidrug resistant Pseudomonas and The patient responded well to the new antibiotic zerbaxa. Patient will probably need PICC line for IV antibiotics upon discharge Other than that patient known new complaint Creatinine trended down to 1.4. Patient is receiving IV fluid currently. Hydrochlorothiazide and losartan been on hold. Blood pressure is well- controlled Objective - Vital Signs Vital signs: Vital Signs Temp 98.4 F 01/06/22 07:10 Pulse 80 01/06/22 07:10 Resp 18 01/06/22 07:10 BP 117/81 01/06/22 07:10 Pulse Ox 96 01/06/22 07:10 FiO2 Intake & Output 01/05/22 01/06/22 01/06/22 18:59 06:59 18:59 Output Total 400 1075 Balance -400 -1075 Weight 202 kg Output: Urine 400 1075 Other: Voiding Method Toilet Toilet Urinal Urinal - Exam GENERAL: The patient is alert and oriented x3, not in any acute distress. Well morbid obesity HEENT: Pupils are round and equally reacting to light. EOMI. No scleral icterus. No conjunctival pallor. Normocephalic, atraumatic. No pharyngeal erythema. No thyromegaly. CARDIOVASCULAR: S1 and S2 present. No murmurs, rubs, or gallops. PULMONARY: Chest is clear to auscultation, no wheezing or crackles. -ABDOMEN: Soft, nontender, nondistended, normoactive bowel sounds. No palpable organomegaly. Large pendulous abdomen due to obesity, with extensive area of cellulitis involving the lower half of the abdomen, with no clear open wound with some oozing of clear yellow secretion in the lower abdomen MUSCULOSKELETAL: No joint swelling or deformity. EXTREMITIES: No cyanosis, clubbing, or pedal edema. NEUROLOGICAL: Gross neurological examination did not reveal any focal deficits. SKIN: No rashes. no petechiae. - Labs CBC & Chem 7: 01/05/22 07:26 01/06/22 10:55 Labs: Abnormal Lab Results - Last 24 Hours (Table) 01/06/22 Range/Units 10:55 Carbon Dioxide 32 H (22-30) mmol/L BUN 42 H (9-20) mg/dL Creatinine 1.48 H (0.66-1.25) mg/dL Glucose 109 H (74-99) mg/dL Calcium 8.3 L (8.4-10.2) mg/dL Microbiology - Last 24 Hours (Table) 12/31/21 18:37 Blood Culture - Preliminary Blood No Growth after 120 hours 12/31/21 18:30 Blood Culture - Preliminary Blood No Growth after 120 hours 01/03/22 12:41 Gram Stain - Final Abdomen Wound Culture - Final Pseudomonas aeruginosa Assessment and Plan Assessment: Extensive abdominal wall cellulitis, secondary to resistant strains of Pseudomonas Acute kidney injury, improving Sepsis improved New-onset A. fib with rate controlled Morbid obesity History of hypertension Benign prostatic hypertrophy Plan: This is a pleasant 66 years old male who presents with cellulitis, sepsis, hy pertension, acute kidney injury Continue with the [facility] Infectious disease team on the case Continue with IV fluid, hold hydrochlorothiazide and losartan, Nephrology consult Continue with metoprolol Cardiology consult Labs and medication were reviewed.. Continue same treatment. Continue with sym ptomatic treatment. Resume home medication. Monitor lytes and vitals. DVT and GI prophylaxis. Further recommendations as per clinical course of the patient DVT prophylaxis: xarelto GI Prophylaxis: Ppi PT/OT: Home health care
[2022-01-06] MEDS: TAMSULOSIN 0.4 MG CAP.ER.24H PO SCH (20:19)
[2022-01-06] MEDS: ASPIRIN 81 MG PO SCH (20:19)
[2022-01-07 07:15] LABS: African American GFR (CKD) 66 (>60 ml/min/1.73 sqM); Anion Gap 10 mmol/L; Blood Urea Nitrogen 36 mg/dL (9-20); Calcium 7.6 mg/dL (8.4-10.2); Carbon Dioxide 31 mmol/L (22-30); Chloride 100 mmol/L (98-107); Glucose 125 mg/dL (74-99); Non-African American GFR(CKD) 57 (>60 ml/min/1.73 sqM); Potassium 4.3 mmol/L (3.5-5.1); Sodium 141 mmol/L (137-145)
[2022-01-07] MEDS: CYANOCOBALAMIN 500 MCG TAB PO SCH (08:43)
[2022-01-07] MEDS: METOPROLOL TARTRATE 25 MG TAB PO SCH ×2 (08:43→22:04)
[2022-01-07] MEDS: CHOLECALCIFEROL 25 MCG (1000 IU) TABLET PO SCH (08:43)
[2022-01-07] MEDS: PANTOPRAZOLE 40 MG TABLET PO SCH (08:44)
[2022-01-07] MEDS: NYSTATIN 100,000 UNIT/GM POWD 15 GM TOPICAL SCH ×2 (08:44→22:04)
[2022-01-07] MEDS ORDERED: FUROSEMIDE 10 MG/ML 4 ML VIAL IV STA (09:07)
--- NOTE | 2022-01-07 09:39 | P.PN ---
Subjective Progress Note Date: 01/07/22 HISTORY OF PRESENT ILLNESS: This is a pleasant 66-year-old gentleman with a past medical history of hypertension, DVT and PE 4 years ago, not currently anticoagulated, prior nicotine dependence, and obesity. Presented to the emergency department mostly with complaints of abdominal wall redness, warmth and discomfort. Noted to have abdominal wall cellulitis with sepsis and initiated on cefazolin and clindamycin. Also had evidence of acute kidney injury. ID has been consulted. We were asked to see the patient in consultation for new onset paroxysmal atrial fibrillation. Patient was found to be in atrial fibrillation at around 7:30 this morning with a controlled ventricular response. In reviewing the telemetry strips it appears the patient had an episode of paroxysmal atrial fibrillation around 2:30 this morning that was brief and subsequently converted to sinus me chanism. He denies a history of atrial fibrillation. Denies any history of CAD, hyperlipidemia or diabetes. Denies any family history of CAD. He was previously anticoagulated on warfarin for the DVT/PE. He denies any complaints of palpitations, chest discomfort, PND. He has chronic lower extremity edema that is unchanged and chronic stable dyspnea on exertion, unchanged. Did have complaints of dizziness prior to admission but he feels is related to his infection. He is currently on metoprolol tartrate 25 mg by mouth twice a day, losartan 50 mg by mouth daily at bedtime and hydrochlorothiazide 25 mg by mouth daily. Pressure has been on the low side. 01/04/2022 Patient was seen and examined sitting up in a chair. Has no complaints of palpitations, chest discomfort, dizziness or lightheadedness. He did not seem to feel the atrial fibrillation. Labs yesterday showed worsening renal function with a BUN of 42 and creatinine 2.3. Nephrology has been consulted and saw the patient this morning they have discontinued the losartan. Heart rates remained well-controlled he currently remains in atrial fibrillation. Echocardiogram done yesterday showed low-normal LV systolic function with an ejection fraction of 50-55%. 01/05/2022 She was seen and examined today sitting up in a chair. He has no current complaints of palpitations, chest discomfort, dizziness or lightheadedness. Continues to be in atrial fibrillation with controlled ventricular rate however does not seem to feel less. Renal function shows some improvement today with creatinine of 1.8. Vital signs have been stable. There appears to be some improvement in the cellulitis. Cultures are pending. Continues to be followed by ID. 01/06/2022 Patient examined this morning. Patient is sitting up in the chair. Patient denies chest pain or pressure. He denies shortness of breath. Telemetry reveals atrial fibrillation with controlled ventricular rate. Patient denies any palpitations. Patient reports improvement in his abdominal cellulitis. Vital signs are stable. Blood pressure 117/81. 01/07/2022 Patient examined this morning. Patient denies chest pain or pressure. He denie s shortness of breath. He reports improvement in his abdominal wall cellulitis. Telemetry reveals atrial fibrillation with controlled ventricular rate. Patient states he is supposed to get a PICC line today for outpatient antibiotics. Creatinine today 1.2. PHYSICAL EXAM: VITAL SIGNS: Reviewed. GENERAL: Well-developed in no acute distress. NECK: Supple. No JVD or thyromegaly LUNGS: Respirations even and unlabored. Lungs essentially clear to auscultation bilaterally. HEART: Irregular rate and rhythm. S1 and S2 heard. EXTREMITIES: Normal range of motion. No clubbing or cyanosis. Peripheral pulses intact. 1+ bilateral lower extremity edema ASSESSMENT: #1 abdominal wall cellulitis with sepsis #2 persistent atrial fibrillation, rate controlled, CHADs VASC is at least 4 #3 acute kidney injury #4 hypertension #5 history of DVT and PE, previously anticoagulated on warfarin #6 morbid obesity PLAN: Continue current cardiac medications Continue telemetry monitoring Continue anticoagulation with Xarelto Patient is currently stable from a cardiac stand point. We'll sign off. Please reconsult if needed. Nurse practitioner note has been reviewed by physician. Signing provider agrees with the documented findings, assessment, and plan of care. Objective - Vital Signs Vital signs: Vital Signs Temp 97.9 F 01/07/22 02:22 Pulse 93 01/07/22 02:22 Resp 17 01/07/22 02:22 BP 124/78 01/07/22 02:22 Pulse Ox 98 01/07/22 02:22 FiO2 Intake & Output 01/06/22 01/07/22 01/07/22 18:59 06:59 18:59 Intake Total 1080 960 Output Total 1400 Balance 1080 -440 Intake: Oral 1080 960 Output: Urine 1400 Other: Voiding Method Toilet Urinal # Voids 4 # Bowel Movements 1 - Labs CBC & Chem 7: 01/05/22 07:26 01/07/22 06:02 Labs: Abnormal Lab Results - Last 24 Hours (Table) 01/06/22 01/07/22 Range/Units 10:55 06:02 Carbon Dioxide 32 H 31 H (22-30) mmol/L BUN 42 H 36 H (9-20) mg/dL Creatinine 1.48 H 1.29 H (0.66-1.25) mg/dL Glucose 109 H 125 H (74-99) mg/dL Calcium 8.3 L 7.6 L (8.4-10.2) mg/dL Microbiology - Last 24 Hours (Table) 12/31/21 18:37 Blood Culture - Final Blood No Growth after 144 hours 12/31/21 18:30 Blood Culture - Final Blood No Growth after 144 hours 01/03/22 12:41 Anaerobic Culture - Preliminary Abdomen
[2022-01-07] MEDS: CEFTOLOZANE/TAZOBACTAM 1.5 GM in SODIUM CHLORIDE 0.9% 100 ML IV SCH ×2 (09:44→15:54)
--- NOTE | 2022-01-07 11:10 | P.PN ---
Subjective 66-year-old male with past medical history remarkable for prior DVT, hypertension, prostate disorder no longer on anticoagulation who presents here to Department complaining of fatigue, shaking. Patient is also noticed that his pannus has turned red. This started yesterday. States he came in from outside and was feeling unwell. [place] fatigued. Noticed that his abdomen at that time was red below his belt line. This is abnormal for him. We did seek medical attention until today. Has had less of an appetite. Denies shortness of breath, chest pain. Denies abdominal pain, nausea, vomiting. Endorses generalized fatigue. Denies urinary complaints at this time. Endorses generalized weakness. Has no known sick contacts. Denies pain over his pannus. This is for further evaluation of this time. Concerned for possible skin infection of his pannus. EKG shows no signs of acute ischemia. Laboratory studies are remarkable for leukocytosis of 18. Patient is a slightly elevated BUN/creatinine 25 and 1.29, likely secondary to mild MAU and dehydration. Lactic acid is within normal limits. Troponin is indeterminate. Urine studies are positive for blood but nothing else. No infection. Covid is negative. Chest x-ray shows no acute cardio primary process. Atelectasis present. CT abdomen and pelvis reveals no acute intra-abdominal process. No process in the abdominal wall. Patient has been switched to IV cefazolin 3 g every 8 hours along with clindamycin 900 mg every 8 hours; vancomycin is discontinued due to high risk of nephrotoxicity given borderline kidney function We will continue with current IV antibiotics and monitor CBC 01/03/2022 Patient is alert and awake, lethargic, blood pressure is borderline this morning 103/68, baseline systolic blood pressure is 120-160 , his creatinine came back later on in the evening when trending up 2.3. Patient was not on IV fluids, Because of this a bolus of 500 mL presided and normal saline 75 mL/h, her blood pressure improved 119/52. Hold hydrochlorothiazide and losartan continue on home dose of metoprolol. Patient has evidence of A. 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 He is onCefazolin and Clindamycin. We'll check a bladder scan, discussed with bed side nurse 01/04/2022 patient abdominal wall cellulitis although it's is a large however earlier signs of regression however need to monitor it for another 24-48 hours to ensure improvement. Once culture is growing gram-negative bacilli and patient kept on cefazolin and clindamycin His creatinine 2.3 yesterday, repeat labs tomorrow. He kept normal saline. His blood pressure is stable. His hydrochlorothiazide and losartan on hold. Ejection fraction 50-55% Patient still looks dehydrated and he needs more IV fluids. He has new onset atrial fibrillation with rate controlled, cardiology started him on salt 01/05/2022 Patient with extensive abdominal wall cellulitis, she has huge pendulous abdomen due to obesity, cellulitis showing only mild partial improvement. Culture today is growing resistant strains of Pseudomonas and antibiotic was adjusted to zerbaxa every 8 hours. Per ID team recommendation Creatinine improvement 1.8, continue with normal saline 75 mm/h, blood pressure improved. Keep holding hydrochlorothiazide and losartan. Patient kept on his alto, risks and benefits explained for him including but not limited to risk of bleeding and he verbalized understanding and acceptance to continue with the treatment. Rate is controlled. PT OT recommended home versus home health care 01/06/2022 abdominal cellulitis significantly improving. Patient culture is growing multidrug resistant Pseudomonas and The patient responded well to the new antibiotic zerbaxa. Patient will probably need PICC line for IV antibiotics upon discharge Other than that patient known new complaint Creatinine trended down to 1.4. Patient is receiving IV fluid currently. Hydrochlorothiazide and losartan been on hold. Blood pressure is well- controlled 01/06/2022 Patient clinically is improving approximately have regressed the cellulitis metabolic. He is afebrile and atorvastatin 12. His creatinine down to 1.2, going to resume his hydrochlorothiazide today. Keep Hold losartan for now. Continue patient on the same antibiotic zerbaxa is a still have extensive cellulitis Objective - Vital Signs Vital signs: Vital Signs Temp 97 F L 01/07/22 08:00 Pulse 74 01/07/22 08:00 Resp 18 01/07/22 08:00 BP 114/79 01/07/22 08:00 Pulse Ox 98 01/07/22 08:00 FiO2 Intake & Output 01/06/22 01/07/22 01/07/22 18:59 06:59 18:59 Intake Total 1080 960 Output Total 1400 Balance 1080 -440 Intake: Oral 1080 960 Output: Urine 1400 Other: Voiding Method Toilet Urinal # Voids 4 1 # Bowel Movements 1 - Exam GENERAL: The patient is alert and oriented x3, not in any acute distress. Well morbid obesity HEENT: Pupils are round and equally reacting to light. EOMI. No scleral icterus. No conjunctival pallor. Normocephalic, atraumatic. No pharyngeal erythema. No thyromegaly. CARDIOVASCULAR: S1 and S2 present. No murmurs, rubs, or gallops. PULMONARY: Chest is clear to auscultation, no wheezing or crackles. -ABDOMEN: Soft, nontender, nondistended, normoactive bowel sounds. No palpable organomegaly. Large pendulous abdomen due to obesity, with extensive area of cellulitis involving the lower half of the abdomen, with no clear open wound with some oozing of clear yellow secretion in the lower abdomen MUSCULOSKELETAL: No joint swelling or deformity. EXTREMITIES: No cyanosis, clubbing, or pedal edema. NEUROLOGICAL: Gross neurological examination did not reveal any focal deficits. SKIN: No rashes. no petechiae. - Labs CBC & Chem 7: 01/05/22 07:26 01/07/22 06:02 Labs: Abnormal Lab Results - Last 24 Hours (Table) 01/06/22 01/07/22 Range/Units 10:55 06:02 Carbon Dioxide 32 H 31 H (22-30) mmol/L BUN 42 H 36 H (9-20) mg/dL Creatinine 1.48 H 1.29 H (0.66-1.25) mg/dL Glucose 109 H 125 H (74-99) mg/dL Calcium 8.3 L 7.6 L (8.4-10.2) mg/dL Microbiology - Last 24 Hours (Table) 12/31/21 18:37 Blood Culture - Final Blood No Growth after 144 hours 12/31/21 18:30 Blood Culture - Final Blood No Growth after 144 hours 01/03/22 12:41 Anaerobic Culture - Preliminary Abdomen Assessment and Plan Assessment: Extensive abdominal wall cellulitis, secondary to resistant strains of Pseudomonas Acute kidney injury, improving Sepsis improved New-onset A. fib with rate controlled Morbid obesity History of hypertension Benign prostatic hypertrophy Plan: This is a pleasant 66 years old male who presents with cellulitis, sepsis, hypertension, acute kidney injury Continue with the [facility] Infectious disease team on the case Continue with IV fluid, hold hydrochlorothiazide and losartan, Nephrology consult Continue with metoprolol Cardiology consult Labs and medication were reviewed.. Continue same treatment. Continue with symptomatic treatment. Resume home medication. Monitor lytes and vitals. DVT and GI prophylaxis. Further recommendations as per clinical course of the patient DVT prophylaxis: xarelto GI Prophylaxis: Ppi PT/OT: Home health care
--- NOTE | 2022-01-07 11:16 | P.PN ---
Subjective Patient is seen for follow-up for acute kidney injury mostly associated with some degree of hypoperfusion, NSAIDs in the setting of low blood pressure. Patient is maintained on IV fluids Renal function has improved with serum creatinine down to 1. 29 mg/dL Abdominal cellulitis is improving. Complaining of increased lower extremity swelling No complaints of shortness of breath Objective - Vital Signs Vital signs: Vital Signs Temp 97 F L 01/07/22 08:00 Pulse 74 01/07/22 08:00 Resp 18 01/07/22 08:00 BP 114/79 01/07/22 08:00 Pulse Ox 98 01/07/22 08:00 FiO2 Intake & Output 01/06/22 01/07/22 01/07/22 18:59 06:59 18:59 Intake Total 1080 960 Output Total 1400 Balance 1080 -440 Intake: Oral 1080 960 Output: Urine 1400 Other: Voiding Method Toilet Urinal # Voids 4 1 # Bowel Movements 1 - Exam Awake, comfortable, not in any acute distress Examination of the heart S1 and S2 Examination of the lungs bilateral breath sounds are heard Abdomen is soft morbidly obese with abdominal wall cellulitis currently slightly improved Examination of the lower extremities shows edema 2+ bilaterally with chronic skin changes 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 grossly intact - Labs CBC & Chem 7: 01/05/22 07:26 01/07/22 06:02 Labs: Abnormal Lab Results - Last 24 Hours (Table) 01/06/22 01/07/22 Range/Units 10:55 06:02 Carbon Dioxide 32 H 31 H (22-30) mmol/L BUN 42 H 36 H (9-20) mg/dL Creatinine 1.48 H 1.29 H (0.66-1.25) mg/dL Glucose 109 H 125 H (74-99) mg/dL Calcium 8.3 L 7.6 L (8.4-10.2) mg/dL Microbiology - Last 24 Hours (Table) 12/31/21 18:37 Blood Culture - Final Blood No Growth after 144 hours 12/31/21 18:30 Blood Culture - Final Blood No Growth after 144 hours 01/03/22 12:41 Anaerobic Culture - Preliminary Abdomen Assessment and Plan Assessment: 1. Acute kidney injury ATN multifactorial including hypotension and the setting of use of DEVONTE inhibitor's as well as NSAIDs and contrast nephropathy. Currently patient is nonoliguric. All offending agents have been discontinued. Currently maintained on normal saline. UA shows large blood 1+ protein. No evidence of obstruction on CT of the abdomen done on initial admission 2. Sepsis with abdominal wall cellulitis maintained on antibiotics 3. New onset A. fib with controlled ventricular response 4. History of BPH 5. Morbid obesity 6. Hypokalemia, status post replacement 7. Volume overload Plan: Continue off of IV fluids Resume hydrochlorothiazide IV Lasix 1 Encourage increased oral intake Repeat labs in a.m.
[2022-01-07] MEDS: hydroCHLOROthiazide 25 MG TAB PO SCH ×2 (11:34→12:38)
[2022-01-07 13:02] VITALS: BMI 63.8
--- NOTE | 2022-01-07 16:12 | P.PN ---
Subjective Progress Note Date: 01/06/22 Principal diagnosis: Abdominal wall cellulitis Patient is a 66-year male with a past medical history significant for morbid obesity significant abdominal pannus and history of abdominal wall cellulitis presented to hospital with increasing redness and pain to lower abdo saman wall patient has been diagnosed with abdominal wall cellulitis. On today's evaluation that is 01/06/2022 the patient continues to be afebrile, patient is breathing comfortably on room air, the patient denies any chest pain shortness of cough, the patient lower abdominal swelling redness has slightly decreased , the patient did have minimal drainage from the lower abdominal area but no foul-smelling Objective - Vital Signs Vital signs: Vital Signs Temp 98.4 F 01/06/22 07:10 Pulse 80 01/06/22 07:10 Resp 18 01/06/22 07:10 BP 117/81 01/06/22 07:10 Pulse Ox 96 01/06/22 07:10 FiO2 Intake & Output 01/05/22 01/06/22 01/06/22 18:59 06:59 18:59 Output Total 400 1075 Balance -400 -1075 Weight 202 kg Output: Urine 400 1075 Other: Voiding Method Toilet Toilet Urinal Urinal - Exam GENERAL DESCRIPTION: Elderly male lying in bed, no distress. No tachypnea or accessory muscle of respiration use. LUNGS: Unlabored breathing. Clear to auscultation anteriorly. No wheeze or crackle. HEART: S1, S2, regular rate and rhythm. No loud murmur ABDOMEN: Soft, lower abdominal wall redness is slightly decreased in intensity EXTREMITIES: Diffuse swelling to bilateral lower extremity - Labs CBC & Chem 7: 01/05/22 07:26 01/07/22 06:02 Labs: Abnormal Lab Results - Last 24 Hours (Table) 01/06/22 Range/Units 10:55 Carbon Dioxide 32 H (22-30) mmol/L BUN 42 H (9-20) mg/dL Creatinine 1.48 H (0.66-1.25) mg/dL Glucose 109 H (74-99) mg/dL Calcium 8.3 L (8.4-10.2) mg/dL Microbiology - Last 24 Hours (Table) 12/31/21 18:37 Blood Culture - Preliminary Blood No Growth after 120 hours 12/31/21 18:30 Blood Culture - Preliminary Blood No Growth after 120 hours 01/03/22 12:41 Gram Stain - Final Abdomen Wound Culture - Final Pseudomonas aeruginosa Assessment and Plan (1) Cellulitis of abdominal wall Current Visit: Yes Status: Acute Code(s): L03.311 - CELLULITIS OF ABDOMINAL WALL SNOMED Code(s): 84176659 Plan: 1-patient with extensive abdominal wall cellulitis in this patient with diffuse swelling and redness and concern for bilateral groin area cutaneous candidiasis likely streptococcal disease patient has shown some clinical improvement however local culture now growing gram-negative which has been finalized with a multidrug-resistant pseudomonas, patient to continue with Zerbexa, patient will need a PICC line and outpatient IV antibiotics 2patient to continue with the nystatin powder bilateral groin area. Time with Patient: Less than 30
--- NOTE | 2022-01-07 16:13 | P.PN ---
Subjective Progress Note Date: 01/07/22 Principal diagnosis: Abdominal wall cellulitis Patient is a 66-year old male with a past medical history significant for morbid obesity significant abdominal pannus and history of abdominal wall cellulitis presented to hospital with increasing redness and pain to lower abdominal wall patient has been diagnosed with abdominal wall cellulitis. On today's evaluation that is 01/07/2022 the patient denies any fever or any chills, patient is breathing comfortably on room air, the patient denies any chest pain shortness of cough, the patient lower abdominal swelling redness and discomfort has decreased did have minimal drainage and denies having any diarrhea with antibiotic therapy Objective - Vital Signs Vital signs: Vital Signs Temp 97 F L 01/07/22 08:00 Pulse 74 01/07/22 08:00 Resp 18 01/07/22 08:00 BP 114/79 01/07/22 08:00 Pulse Ox 98 01/07/22 08:00 FiO2 Intake & Output 01/06/22 01/07/22 01/07/22 18:59 06:59 18:59 Intake Total 1080 960 Output Total 1400 Balance 1080 -440 Intake: Oral 1080 960 Output: Urine 1400 Other: Voiding Method Toilet Urinal # Voids 4 1 # Bowel Movements 1 - Exam GENERAL DESCRIPTION: Elderly male lying in bed, no distress. No tachypnea or accessory muscle of respiration use. LUNGS: Unlabored breathing. Clear to auscultation anteriorly. No wheeze or crackle. HEART: S1, S2, regular rate and rhythm. No loud murmur ABDOMEN: Soft, lower abdominal wall redness has decreased in intensity EXTREMITIES: Diffuse swelling to bilateral lower extremity - Labs CBC & Chem 7: 01/05/22 07:26 01/07/22 06:02 Labs: Abnormal Lab Results - Last 24 Hours (Table) 01/06/22 01/07/22 Range/Units 10:55 06:02 Carbon Dioxide 32 H 31 H (22-30) mmol/L BUN 42 H 36 H (9-20) mg/dL Creatinine 1.48 H 1.29 H (0.66-1.25) mg/dL Glucose 109 H 125 H (74-99) mg/dL Calcium 8.3 L 7.6 L (8.4-10.2) mg/dL Microbiology - Last 24 Hours (Table) 12/31/21 18:37 Blood Culture - Final Blood No Growth after 144 hours 12/31/21 18:30 Blood Culture - Final Blood No Growth after 144 hours 01/03/22 12:41 Anaerobic Culture - Preliminary Abdomen Assessment and Plan (1) Cellulitis of abdominal wall Current Visit: Yes Status: Acute Code(s): L03.311 - CELLULITIS OF ABDOMINAL WALL SNOMED Code(s): 32005449 Plan: 1-patient with extensive abdominal wall cellulitis in this patient with diffuse swelling and redness and concern for bilateral groin area cutaneous candidiasis likely streptococcal disease patient has shown some clinical improvement however local culture now growing gram-negative which has been finalized with a multidrug-resistant pseudomonas 2- patient seemed to have short-acting improvement and will continue with Zerbexa, plan is for 2 weeks of antibiotic on discharge 3patient to continue with the nystatin powder bilateral groin area. Time with Patient: Less than 30
[2022-01-07] MEDS: RIVAROXABAN 20 MG TAB PO SCH (17:10)
[2022-01-07] MEDS: ASPIRIN 81 MG PO SCH (22:04)
[2022-01-07] MEDS: TAMSULOSIN 0.4 MG CAP.ER.24H PO SCH (22:04)
[2022-01-08] MEDS: CEFTOLOZANE/TAZOBACTAM 1.5 GM in SODIUM CHLORIDE 0.9% 100 ML IV SCH ×4 (00:04→23:53)
[2022-01-08 07:50] LABS: African American GFR (CKD) 78 (>60 ml/min/1.73 sqM); Anion Gap 11 mmol/L; Blood Urea Nitrogen 28 mg/dL (9-20); Calcium 7.5 mg/dL (8.4-10.2); Carbon Dioxide 29 mmol/L (22-30); Chloride 99 mmol/L (98-107); Glucose 114 mg/dL (74-99); Non-African American GFR(CKD) 67 (>60 ml/min/1.73 sqM); Potassium 3.6 mmol/L (3.5-5.1); Sodium 139 mmol/L (137-145)
[2022-01-08] MEDS: CHOLECALCIFEROL 25 MCG (1000 IU) TABLET PO SCH (09:12)
[2022-01-08] MEDS: hydroCHLOROthiazide 25 MG TAB PO SCH (09:12)
[2022-01-08] MEDS: METOPROLOL TARTRATE 25 MG TAB PO SCH ×2 (09:12→20:33)
[2022-01-08] MEDS: PANTOPRAZOLE 40 MG TABLET PO SCH (09:12)
[2022-01-08] MEDS: CYANOCOBALAMIN 500 MCG TAB PO SCH (09:13)
[2022-01-08] MEDS: NYSTATIN 100,000 UNIT/GM POWD 15 GM TOPICAL SCH ×2 (09:14→20:33)
[2022-01-08] MEDS ORDERED: POTASSIUM CHLORIDE ER 20 MEQ TAB.ER PO STA (09:57)
--- NOTE | 2022-01-08 09:58 | P.PN ---
Subjective Patient is seen in follow-up for acute kidney injury. Renal function continues to improve. Good urine output. No vomiting or diarrhea. Oral intake fair. Hemodynamically stable. Vital signs are stable. General: Awake. No acute distress. HEENT: Head exam is unremarkable. LUNGS: Breath sounds decreased. HEART: Rate and Rhythm are regular. ABDOMEN: Obese. Lower abdominal erythema noted. No drainage. EXTREMITITES: Trace edema. Objective - Vital Signs Vital signs: Vital Signs Temp 97.9 F 01/08/22 07:54 Pulse 99 01/08/22 07:54 Resp 18 01/08/22 07:54 BP 153/79 01/08/22 07:54 Pulse Ox 97 01/08/22 07:54 FiO2 Intake & Output 01/07/22 01/08/22 01/08/22 18:59 06:59 18:59 Output Total 2100 1250 Balance -2100 -1250 Weight 202 kg Output: Urine 2100 1250 Other: Voiding Method Toilet Urinal # Voids 1 - Labs CBC & Chem 7: 01/05/22 07:26 01/08/22 06:37 Labs: Abnormal Lab Results - Last 24 Hours (Table) 01/08/22 Range/Units 06:37 BUN 28 H (9-20) mg/dL Glucose 114 H (74-99) mg/dL Calcium 7.5 L (8.4-10.2) mg/dL Microbiology - Last 24 Hours (Table) 01/03/22 12:41 Anaerobic Culture - Final Abdomen Assessment and Plan Plan: Assessment: 1. Acute kidney injury secondary to ATN secondary to contrast-induced acute kid margareth injury, hypotension as well as use of nonsteroidals and DEVONTE inhibitor. Renal function improving. Off IV fluids. No hydronephrosis noted on CAT scan. 2. Sepsis of the abdominal wall CytoLyt is maintained on antibiotics. ID following. 3. Benign hypertension. Stable. 4. A. fib. Rate controlled. 5. BPH maintained on Flomax. 6. Mild hypokalemia from diuretic. Plan: Replace potassium. Check magnesium level. Encouraged oral intake. Avoid nephrotoxins.
--- NOTE | 2022-01-08 15:25 | P.PN ---
Subjective Progress Note Date: 01/08/22 Patient evaluated today sitting up in the chair. Continues with erythema and swelling as well as drainage to the abdominal pannus/abdominal groin folds. Cultures showing Pseudomonas patient continues on IV Zerbaxa every 8 hours. Being followed closely by infectious disease. Patient is also being followed by nephrology, hydrochlorothiazide has been resumed and creatinine down to 1.13. No acute events overnight, remains afebrile, blood pressure 122/75, 96% room air. Patient was discharged on IV antibiotics pending line placement for IV antibiotics for 2 weeks outpatient. Review of Systems Constitutional: Denied any fatigue denied any fever. Cardio vascular: denied any chest pain, palpitations Gastrointestinal: denied any nausea, vomiting, diarrhea Pulmonary: Denied any shortness of breath cough Neurologic denied any new focal deficits All inpatient medications were reviewed and appropriate changes in these medications as dictated in the interval history and assessment and plan. PHYSICAL EXAMINATION: GENERAL: The patient is alert and oriented x3, not in any acute distress. Well developed, well nourished. Obese HEENT: Pupils are round and equally reacting to light. EOMI. No scleral icterus. No conjunctival pallor. Normocephalic, atraumatic. No pharyngeal erythema. No thyromegaly. CARDIOVASCULAR: S1 and S2 present. No murmurs, rubs, or gallops. PULMONARY: Chest is clear to auscultation, no wheezing or crackles. ABDOMEN: Soft, nontender, nondistended, normoactive bowel sounds. No palpable organomegaly. MUSCULOSKELETAL: No joint swelling or deformity. EXTREMITIES: No cyanosis, clubbing, or pedal edema. NEUROLOGICAL: Gross neurological examination did not reveal any focal deficits. SKIN: Erythema and drainage to abdominal pannus and groin folds. Assessment and Plan Assessment Extensive abdominal wall cellulitis, secondary to resistant strains of Pseudomonas Acute kidney injury, improving Sepsis improved New-onset A. fib with rate controlled Morbid obesity History of hypertension Benign prostatic hypertrophy GI Prophylaxis DVT Prophylaxis Full Code Plan: This is a pleasant 66 year old male who presents with cellulitis, sepsis, hypertension, acute kidney injury Continue with the zerbaxa Infectious disease team on the case Nephrology, Cardiology consultation in place Resumed on hctz Continue with local wound care with nystatin powder, interdry to folds Pending line placement with recommendations for 2 weeks of anitbiotic therapy on discharge with Zerbaxa, pending coordination with [facility]. Home with HC most likely Monday The impression and plan of care has been dictated by Kelli Rogers, Nurse Practitioner as directed. Dr. Dmitry MD I have performed a history and physical examination and medical decision making of this patient, discussed the same with the dictator, and agree with the dictators assessment and plan as written, documented as a scribe. Based on total visit time, I have performed more than 50% of this visit. Objective - Vital Signs Vital signs: Vital Signs Temp 98.2 F 01/08/22 14:00 Pulse 89 01/08/22 14:00 Resp 18 01/08/22 14:00 BP 122/75 01/08/22 14:00 Pulse Ox 96 01/08/22 14:00 FiO2 Intake & Output 01/07/22 01/08/22 01/08/22 18:59 06:59 18:59 Output Total 2100 1250 Balance -2100 -1250 Weight 202 kg Output: Urine 2100 1250 Other: Voiding Method Toilet Urinal # Voids 1 - Labs CBC & Chem 7: 01/05/22 07:26 01/08/22 06:37 Labs: Abnormal Lab Results - Last 24 Hours (Table) 01/08/22 Range/Units 06:37 BUN 28 H (9-20) mg/dL Glucose 114 H (74-99) mg/dL Calcium 7.5 L (8.4-10.2) mg/dL Microbiology - Last 24 Hours (Table) 01/03/22 12:41 Anaerobic Culture - Final Abdomen Assessment and Plan Time with Patient: Less than 30
[2022-01-08] MEDS: RIVAROXABAN 20 MG TAB PO SCH (17:15)
[2022-01-08] MEDS: ASPIRIN 81 MG PO SCH (20:33)
[2022-01-08] MEDS: TAMSULOSIN 0.4 MG CAP.ER.24H PO SCH (20:33)
--- NOTE | 2022-01-08 23:17 | P.PN ---
Subjective Progress Note Date: 01/08/22 Principal diagnosis: Abdominal wall cellulitis Patient is a 66-year old male with a past medical history significant for morbid obesity significant abdominal pannus and history of abdominal wall cellulitis presented to hospital with increasing redness and pain to lower abdominal wall patient has been diagnosed with abdominal wall cellulitis. On today's evaluation that is 01/08/2022 the patient remains to be afebrile, patient is breathing comfortably on room air, the patient denies any chest pain shortness of cough, the patient lower abdominal swelling redness and discomfort has decreased and did have less drainage, the patient denies having any abdominal pain no diarrhea Objective - Vital Signs Vital signs: Vital Signs Temp 98.2 F 01/08/22 14:00 Pulse 89 01/08/22 14:00 Resp 18 01/08/22 14:00 BP 122/75 01/08/22 14:00 Pulse Ox 96 01/08/22 14:00 FiO2 Intake & Output 01/07/22 01/08/22 01/08/22 18:59 06:59 18:59 Output Total 2100 1250 Balance -2100 -1250 Weight 202 kg Output: Urine 2100 1250 Other: Voiding Method Toilet Urinal # Voids 1 - Exam GENERAL DESCRIPTION: Elderly male lying in bed, no distress. No tachypnea or accessory muscle of respiration use. LUNGS: Unlabored breathing. Clear to auscultation anteriorly. No wheeze or crackle. HEART: S1, S2, regular rate and rhythm. No loud murmur ABDOMEN: Soft, lower abdominal wall redness has decreased in intensity EXTREMITIES: Diffuse swelling to bilateral lower extremity - Labs CBC & Chem 7: 01/05/22 07:26 01/08/22 06:37 Labs: Abnormal Lab Results - Last 24 Hours (Table) 01/08/22 Range/Units 06:37 BUN 28 H (9-20) mg/dL Glucose 114 H (74-99) mg/dL Calcium 7.5 L (8.4-10.2) mg/dL Microbiology - Last 24 Hours (Table) 01/03/22 12:41 Anaerobic Culture - Final Abdomen Assessment and Plan (1) Cellulitis of abdominal wall Current Visit: Yes Status: Acute Code(s): L03.311 - CELLULITIS OF ABDOMINAL WALL SNOMED Code(s): 67255151 Plan: 1-patient with extensive abdominal wall cellulitis in this patient with diffuse swelling and redness and concern for bilateral groin area cutaneous candidiasis likely streptococcal disease patient has shown some clinical improvement however local culture now growing gram-negative which has been finalized with a multidrug-resistant pseudomonas 2- patient seemed to have shown clinical improvement and kidney function has improved as well, patient will continue with Zerbexa, plan is for 2 weeks of antibiotic on discharge 3patient to continue with the nystatin powder bilateral groin area. Time with Patient: Less than 30
[2022-01-09] MEDS: CEFTOLOZANE/TAZOBACTAM 1.5 GM in SODIUM CHLORIDE 0.9% 100 ML IV SCH ×2 (07:49→16:59)
[2022-01-09] MEDS: CHOLECALCIFEROL 25 MCG (1000 IU) TABLET PO SCH (07:50)
[2022-01-09] MEDS: PANTOPRAZOLE 40 MG TABLET PO SCH (07:50)
[2022-01-09] MEDS: hydroCHLOROthiazide 25 MG TAB PO SCH (07:51)
[2022-01-09] MEDS: METOPROLOL TARTRATE 25 MG TAB PO SCH ×2 (07:51→22:14)
[2022-01-09] MEDS: CYANOCOBALAMIN 500 MCG TAB PO SCH (07:51)
[2022-01-09 07:55] LABS: African American GFR (CKD) 87 (>60 ml/min/1.73 sqM); Anion Gap 7 mmol/L; Blood Urea Nitrogen 26 mg/dL (9-20); Calcium 7.7 mg/dL (8.4-10.2); Carbon Dioxide 30 mmol/L (22-30); Chloride 100 mmol/L (98-107); Glucose 108 mg/dL (74-99); Magnesium 1.9 mg/dL (1.6-2.3); Non-African American GFR(CKD) 75 (>60 ml/min/1.73 sqM); Potassium 4.1 mmol/L (3.5-5.1); Sodium 137 mmol/L (137-145)
--- NOTE | 2022-01-09 09:50 | P.PN ---
Subjective Patient is seen in follow-up for acute kidney injury. Renal function continues to improve. Good urine output. No vomiting or diarrhea. Oral intake fair. Hemodynamically stable. No active complaints at this time. Vital signs are stable. General: Awake. No acute distress. HEENT: Head exam is unremarkable. LUNGS: Breath sounds decreased. HEART: Rate and Rhythm are regular. ABDOMEN: Obese. Lower abdominal erythema noted. No drainage. EXTREMITITES: 1+ edema. Objective - Vital Signs Vital signs: Vital Signs Temp 98.2 F 01/09/22 08:00 Pulse 83 01/09/22 08:00 Resp 16 01/09/22 08:00 BP 132/76 01/09/22 08:00 Pulse Ox 97 01/09/22 08:00 FiO2 Intake & Output 01/08/22 01/09/22 01/09/22 18:59 06:59 18:59 Output Total 1800 Balance -1800 Output: Urine 1800 Other: Voiding Method Toilet Urinal - Labs CBC & Chem 7: 01/05/22 07:26 01/09/22 06:33 Labs: Abnormal Lab Results - Last 24 Hours (Table) 01/09/22 Range/Units 06:33 BUN 26 H (9-20) mg/dL Glucose 108 H (74-99) mg/dL Calcium 7.7 L (8.4-10.2) mg/dL Assessment and Plan Plan: Assessment: 1. Acute kidney injury secondary to ATN secondary to contrast-induced acute kidney injury, hypotension as well as use of nonsteroidals and DEVONTE inhibitor. Renal function improving - creatinine 1.03 today. Off IV fluids. No hydronephrosis noted on CAT scan. 2. Sepsis of the abdominal wall cellulitis maintained on antibiotics. ID following. 3. Benign hypertension. Stable. 4. A. fib. Rate controlled. 5. BPH maintained on Flomax. 6. Mild hypokalemia from diuretic.Replace. Better. Magnesium 1.9. Plan: Encouraged oral intake. Avoid nephrotoxins.
--- NOTE | 2022-01-09 15:03 | P.PN ---
Subjective Progress Note Date: 01/09/22 Principal diagnosis: Abdominal wall cellulitis Patient is a 66-year old male with a past medical history significant for morbid obesity significant abdominal pannus and history of abdominal wall cellulitis presented to hospital with increasing redness and pain to lower abdominal wall patient has been diagnosed with abdominal wall cellulitis. On today's evaluation that is 01/09/2022 the patient continues to be afebrile, patient is breathing comfortably on room air, the patient denies chest pain shortness of cough, the patient lower abdominal swelling redness has decreased intensity and less drainage patient denies abdominal pain and no diarrhea Objective - Vital Signs Vital signs: Vital Signs Temp 98.2 F 01/09/22 08:00 Pulse 83 01/09/22 08:00 Resp 16 01/09/22 08:00 BP 132/76 01/09/22 08:00 Pulse Ox 97 01/09/22 08:00 FiO2 Intake & Output 01/08/22 01/09/22 01/09/22 18:59 06:59 18:59 Output Total 1800 Balance -1800 Output: Urine 1800 Other: Voiding Method Toilet Urinal - Exam GENERAL DESCRIPTION: Elderly male lying in bed, no distress. No tachypnea or accessory muscle of respiration use. LUNGS: Unlabored breathing. Clear to auscultation anteriorly. No wheeze or crackle. HEART: S1, S2, regular rate and rhythm. No loud murmur ABDOMEN: Soft, lower abdominal wall redness has decreased in intensity EXTREMITIES: Diffuse swelling to bilateral lower extremity - Labs CBC & Chem 7: 01/05/22 07:26 01/09/22 06:33 Labs: Abnormal Lab Results - Last 24 Hours (Table) 01/09/22 Range/Units 06:33 BUN 26 H (9-20) mg/dL Glucose 108 H (74-99) mg/dL Calcium 7.7 L (8.4-10.2) mg/dL Assessment and Plan (1) Cellulitis of abdominal wall Current Visit: Yes Status: Acute Code(s): L03.311 - CELLULITIS OF ABDOMINAL WALL SNOMED Code(s): 70506593 Plan: 1-patient with extensive abdominal wall cellulitis in this patient with diffuse swelling and redness and concern for bilateral groin area cutaneous candidiasis likely streptococcal disease patient has shown some clinical improvement however local culture subsequently grew multidrug-resistant pseudomonas 2- patient seemed to have shown clinical improvement and kidney function has improved patient to continue with Zerbexa, plan is for 2 weeks of antibiotic on discharge, will apply Aquacel silver dressing to lower abdominal open wound area 3patient to continue with the nystatin powder bilateral groin area. at the bedside questions concerned were answered Time with Patient: Less than 30
--- NOTE | 2022-01-09 16:16 | P.PN ---
Subjective Progress Note Date: 01/09/22 Patient evaluated today sitting up in the chair. Continues with erythema and swelling as well as drainage to the abdominal pannus/abdominal groin folds. Cultures showing Pseudomonas patient continues on IV Zerbaxa every 8 hours. Being followed closely by infectious disease. Patient is also being followed by nephrology, hydrochlorothiazide has been resumed and creatinine down to 1.13. No acute events overnight, remains afebrile, blood pressure 122/75, 96% room air. Patient was discharged on IV antibiotics pending line placement for IV antibiotics for 2 weeks outpatient. 01/09/2022 Draining is improving from abdominal cellulitis. Continues on IV antibiotics and order placed for midline. Infectious disease recommending 2 weeks of outpatient IV antibiotics on discharge. No acute events overnight. Kidney function has improved, BUN 26, creatinine 1.03, magnesium 1.9 today. Patient had a BM today, urinating without difficulty. Afebrile, blood pressure 132/81. Pending DC planning from case management regarding homecare and IV antibiotics. Review of Systems Constitutional: Denied any fatigue denied any fever. Cardio vascular: denied any chest pain, palpitations Gastrointestinal: denied any nausea, vomiting, diarrhea Pulmonary: Denied any shortness of breath cough Neurologic denied any new focal deficits All inpatient medications were reviewed and appropriate changes in these medicat ions as dictated in the interval history and assessment and plan. PHYSICAL EXAMINATION: GENERAL: The patient is alert and oriented x3, not in any acute distress. Well developed, well nourished. Obese HEENT: Pupils are round and equally reacting to light. EOMI. No scleral icterus. No conjunctival pallor. Normocephalic, atraumatic. No pharyngeal erythema. No thyromegaly. CARDIOVASCULAR: S1 and S2 present. No murmurs, rubs, or gallops. PULMONARY: Chest is clear to auscultation, no wheezing or crackles. ABDOMEN: Soft, nontender, nondistended, normoactive bowel sounds. No palpable organomegaly. MUSCULOSKELETAL: No joint swelling or deformity. EXTREMITIES: No cyanosis, clubbing, or pedal edema. NEUROLOGICAL: Gross neurological examination did not reveal any focal deficits. SKIN: Erythema and drainage to abdominal pannus and groin folds. Assessment and Plan Assessment Extensive abdominal wall cellulitis, secondary to resistant strains of Pseudomonas Acute kidney injury, resolved Sepsis improved New-onset A. fib with rate controlled, currently in normal sinus rhythm Morbid obesity History of hypertension Benign prostatic hypertrophy GI Prophylaxis DVT Prophylaxis Xarelto Full Code Plan: This is a pleasant 66 year old male who presents with cellulitis, sepsis, hypertension, acute kidney injury Continue with the zerbaxa Infectious disease team on the case Nephrology, Cardiology consultation in place Resumed on hctz Continue with local wound care with nystatin powder, interdry to folds Pending line placement with recommendations for 2 weeks of anitbiotic therapy on discharge with Zerbaxa, pending coordination with [facility]. Home with HC most likely Monday The impression and plan of care has been dictated by Kelli Rogers, Nurse Practitioner as directed. Dr. Dmitry MD I have performed a history and physical examination and medical decision making of this patient, discussed the same with the dictator, and agree with the dictators assessment and plan as written, documented as a scribe. Based on total visit time, I have performed more than 50% of this visit. Objective - Vital Signs Vital signs: Vital Signs Temp 98.1 F 01/09/22 14:00 Pulse 95 01/09/22 14:00 Resp 18 01/09/22 14:00 BP 132/81 01/09/22 14:00 Pulse Ox 97 01/09/22 14:00 FiO2 Intake & Output 01/08/22 01/09/22 01/09/22 18:59 06:59 18:59 Output Total 1800 Balance -1800 Output: Urine 1800 Other: Voiding Method Toilet Urinal - Labs CBC & Chem 7: 01/05/22 07:26 01/09/22 06:33 Labs: Abnormal Lab Results - Last 24 Hours (Table) 01/09/22 Range/Units 06:33 BUN 26 H (9-20) mg/dL Glucose 108 H (74-99) mg/dL Calcium 7.7 L (8.4-10.2) mg/dL Assessment and Plan Time with Patient: Less than 30
[2022-01-09] MEDS: RIVAROXABAN 20 MG TAB PO SCH (16:59)
[2022-01-09] MEDS: NYSTATIN 100,000 UNIT/GM POWD 15 GM TOPICAL SCH ×2 (17:02→22:15)
[2022-01-09] MEDS: ASPIRIN 81 MG PO SCH (22:15)
[2022-01-09] MEDS ORDERED: MELATONIN 5 MG TABLET PO SCH (22:15)
[2022-01-09] MEDS: TAMSULOSIN 0.4 MG CAP.ER.24H PO SCH (22:15)
[2022-01-10] MEDS: CEFTOLOZANE/TAZOBACTAM 1.5 GM in SODIUM CHLORIDE 0.9% 100 ML IV SCH ×3 (00:39→16:37)
[2022-01-10] MEDS: CYANOCOBALAMIN 500 MCG TAB PO SCH (09:59)
[2022-01-10] MEDS: CHOLECALCIFEROL 25 MCG (1000 IU) TABLET PO SCH (09:59)
[2022-01-10] MEDS: PANTOPRAZOLE 40 MG TABLET PO SCH (09:59)
[2022-01-10] MEDS: hydroCHLOROthiazide 25 MG TAB PO SCH (10:00)
[2022-01-10] MEDS: METOPROLOL TARTRATE 25 MG TAB PO SCH (10:00)
[2022-01-10] MEDS: NYSTATIN 100,000 UNIT/GM POWD 15 GM TOPICAL SCH (10:00)
--- NOTE | 2022-01-10 10:09 | P.PN ---
Subjective Patient is seen in follow-up for acute kidney injury. Renal function improved from admission. Good urine output. No vomiting or diarrhea. Oral intake fair. Hemodynamically stable. No active complaints at this time. Vital signs are stable. General: Awake. No acute distress. HEENT: Head exam is unremarkable. LUNGS: Breath sounds decreased. HEART: Rate and Rhythm are regular. ABDOMEN: Obese. Lower abdominal erythema noted. No drainage. EXTREMITITES: 1+ edema. Objective - Vital Signs Vital signs: Vital Signs Temp 98.2 F 01/10/22 08:00 Pulse 96 01/10/22 08:00 Resp 17 01/10/22 08:00 BP 129/80 01/10/22 08:00 Pulse Ox 98 01/10/22 08:00 FiO2 Intake & Output 01/09/22 01/10/22 01/10/22 18:59 06:59 18:59 Output Total 1200 600 Balance -1200 -600 Output: Urine 1200 600 Other: Voiding Method Toilet Urinal # Bowel Movements 1 - Labs CBC & Chem 7: 01/05/22 07:26 01/09/22 06:33 Assessment and Plan Plan: Assessment: 1. Acute kidney injury secondary to ATN secondary to contrast-induced acute kidney injury, hypotension as well as use of nonsteroidals and DEVONTE inhibitor. Renal function improving - creatinine 1.03 yesterday. Off IV fluids. No hydronephrosis noted on CAT scan. 2. Sepsis of the abdominal wall cellulitis maintained on antibiotics. ID following. 3. Benign hypertension. Stable. 4. A. fib. Rate controlled. 5. BPH maintained on Flomax. 6. Mild hypokalemia from diuretic. Replaced. Better. Magnesium 1.9. Plan: Encouraged oral intake. Avoid nephrotoxins.
[2022-01-10 15:30] VITALS: BP 129/77; PULSE 94; RESP 16; TEMP 98.1
[2022-01-10] MEDS: RIVAROXABAN 20 MG TAB PO SCH (16:46)
--- NOTE | 2022-01-11 16:03 | P.DS ---
Providers Date of admission: 01/03/22 07:33 Attending physician: Priscila Santos Consults: 12/31/21 21:40 Consult Physician Routine Consulting Provider: Gio Menendez Consult Reason/Comments: cellulitis of panus Do you want consulting provider notified?: Yes, Notify in am 01/03/22 21:23 Consult Physician Routine Consulting Provider: Angela Wilson Consult Reason/Comments: mau Do you want consulting provider notified?: Yes, Notify in am Primary care physician: Daniel Zaman Hospital Course: Diagnosis Extensive abdominal wall cellulitis, secondary to resistant strains of Pseudomonas Acute kidney injury, resolved Sepsis improved New-onset A. fib with rate controlled, currently in normal sinus rhythm anticoagulated with xarelto Morbid obesity History of hypertension Benign prostatic hypertrophy Full Code Discharge Diagnosis Patient is stable for discharge home. Received midline and will continue with IV zerbaxa for 2 more weeks per infectious disease. Continue with nystatin powder to abdominal folds and groin. Hospital Course This is a 66-year-old male with past medical history remarkable for prior DVT/PE for 4 years ago not currenlty on anticoagulation, hypertension, prostate disord er who presents here to Department complaining of fatigue, shaking. Patient is also noticed that his pannus has turned red. This started day before admission. States he came in from outside and was feeling unwell. [place] fatigued. Noticed that his abdomen at that time was red below his belt line. This is abnormal for him. Has had less of an appetite. Denies shortness of breath, chest pain. De nies abdominal pain, nausea, vomiting. Endorses generalized fatigue. Denies urinary complaints at this time. Endorses generalized weakness. Has no known sick contacts. Denies pain over his pannus. Concerned for possible skin infection of his pannus. EKG shows no signs of acute ischemia. Laboratory studies are remarkable for leukocytosis of 18. Patient is a slightly elevated BUN/creatinine 25 and 1.29, likely secondary to mild MAU and dehydration. Lactic acid is within normal limits. Troponin is indeterminate. Urine studies are positive for blood but nothing else. No infection. Covid is negative. Chest x-ray shows no acute cardio primary process. Atelectasis present. CT abdomen and pelvis reveals no acute intra-abdominal process. No process in the abdominal wall. Patients a bdomen was draining which was cultured and found to be positive for pseudomonas with resistance. He was evaluated by infectious disease on started on IV Zerbaxa. He is using nystatin and interdry to abdominal pannus folds and groin. Redness is improving. Patient was also evaluated by cardiology for an episode of paroxysmal atrial fibrillation found on telemetry monitoring and had spontaneously converted to sinus rhythm he was started on xarelto and will also discharge on xarelto. Echocardiogram was performed which shows borderline LV systolic function EF 50 to 55%. Mild tricuspid regurgitation. Patient was evaluated by nephrology and hydrochlorothiazide was held and was resumed prior to discharge as his creatinine had improved to 1.03. Patient was cleared for discharge on IV antibiotics outpatient for 2 weeks. 01/10/2022 Patient evaluated today sitting up in chair he is anxious for discharge home. He has received midline for 2 weeks antibiotic therapy outpatient. No acute events overnight. He continues in normal sinus rhythm, cardiology has signed off. Continues on metoprolol 25 mg PO BID. Blood pressure 129/77, heart rate 94, afebrile, 96% room air. Will see cardiology and nephrology outpatient. No chest pain, no shortness of breath, no nausea, vomiting, diarrhea. Reports sleeping well using melatonin as needed. Lungs are clear, S1 S2 auscultated regular rate and rhythm. Focal neurological exam is negative. Cleared for discharge. Most recent labs showing sodium 137, potassium 4.1, BUN 26, creatinine 1.03, blood glucose 108, clacium 7.7, magnesium 1.9. Total time taken in discharge planning greater than 35 minutes. Please see medication reconciliation for a list of current medication. Thank you for allowing us to participate in the care of this patient. The impression and plan of care has been dictated by Kelli Rogers, Nurse Practitioner as directed. Dr. Dmitry MD I have performed a history and physical examination and medical decision making of this patient, discussed the same with the dictator, and agree with the dictators assessment and plan as written, documented as a scribe. Based on total visit time, I have performed more than 50% of this visit. Patient Condition at Discharge: Stable Plan - Discharge Summary Discharge Rx Participant: Yes New Discharge Prescriptions: New Rivaroxaban [Xarelto] 20 mg PO W/SUPPER #30 tab Nystatin 100,000 Unit/gm Powd [Mycostatin Powder] 1 applic TOPICAL BID #1 each Acetaminophen Tab [Tylenol] 650 mg PO Q6HR PRN tab PRN Reason: Mild Pain Or Fever > 100.5 Continue Metoprolol Tartrate [Lopressor] 25 mg PO BID Cholecalciferol [Vitamin D3 (25 Mcg = 1000 Iu)] 50 mcg PO DAILY Tamsulosin [Flomax] 0.4 mg PO HS hydroCHLOROthiazide 25 mg PO DAILY Aspirin [Adult Low Dose Aspirin EC] 81 mg PO HS Cyanocobalamin (Vitamin B-12) [Vitamin B-12] 2,000 mcg PO DAILY Omeprazole [PriLOSEC] 40 mg PO DAILY #14 cap Discontinued Losartan [Cozaar] 50 mg PO HS Discharge Medication List Aspirin [Adult Low Dose Aspirin EC] 81 mg PO HS 10/13/21 [History] Metoprolol Tartrate [Lopressor] 25 mg PO BID 10/13/21 [History] Tamsulosin [Flomax] 0.4 mg PO HS 10/13/21 [History] hydroCHLOROthiazide 25 mg PO DAILY 10/13/21 [History] Cholecalciferol [Vitamin D3 (25 Mcg = 1000 Iu)] 50 mcg PO DAILY 11/16/21 [History] Cyanocobalamin (Vitamin B-12) [Vitamin B-12] 2,000 mcg PO DAILY 11/16/21 [Histo ry] Omeprazole [PriLOSEC] 40 mg PO DAILY #14 cap 11/22/21 [Rx] Rivaroxaban [Xarelto] 20 mg PO W/SUPPER #30 tab 01/04/22 [Rx] Acetaminophen Tab [Tylenol] 650 mg PO Q6HR PRN tab 01/10/22 [Rx] Nystatin 100,000 Unit/gm Powd [Mycostatin Powder] 1 applic TOPICAL BID #1 each 01/10/22 [Rx] Follow up Appointment(s)/Referral(s): Daniel Zaman MD [Primary Care Provider] - 01/12/22 10:30 am [facility]fusion [NON-STAFF] - As Needed ([facility] will call you prior to delivering outpatient IV antibiotic supplies to your home on the night of discharge or the very next morning. ) [facility] Visiting Nurse, [NON-STAFF] - As Needed ([facility] will call you to schedule the time for your first visit tomorrow to begin outpatient IV antibiotic teaching. ) Ambulatory/Diagnostic Orders: Basic Metabolic Panel [LAB.AMB] Time Frame: 3 Days, Location: None Selected Discharge Disposition: HOME WITH HOME HEALTH SERVICES
== END 2022-01-10 18:29 | disposition home health service (06) | DRG 871 ==
LOC: EC 16:18 → 6NMEDSUR 21:02 → 4SSUR 21:51 → OBSVTOIN 01-03 07:33
PROVIDERS: ADMIT Internal Medicine; ATTEND Internal Medicine
PROC: 02HV33Z Insertion of Infusion Device into Superior Vena Cava, Percutaneous Approach (ICD-10-PCS; principal; 2022-01-03)
DX: A41.52 Sepsis due to Pseudomonas (principal); N17.0 Acute kidney failure with tubular necrosis; L03.311 Cellulitis of abdominal wall; Z68.44 Body mass index [BMI] 60.0-69.9, adult; I48.19 Other persistent atrial fibrillation; N39.0 Urinary tract infection, site not specified; Z16.24 Resistance to multiple antibiotics; R65.20 Severe sepsis without septic shock; Z20.822 Contact with and (suspected) exposure to COVID-19; E86.0 Dehydration; E87.6 Hypokalemia; E66.01 Morbid (severe) obesity due to excess calories; E83.42 Hypomagnesemia; I10 Essential (primary) hypertension; N40.0 Benign prostatic hyperplasia without lower urinary tract symptoms; T50.2X5A Adverse effect of carbonic-anhydrase inhibitors, benzothiadiazides and other diuretics, initial encounter; N14.1 Nephropathy induced by other drugs, medicaments and biological substances; T50.8X5A Adverse effect of diagnostic agents, initial encounter; Y92.239 Unspecified place in hospital as the place of occurrence of the external cause; E87.70 Fluid overload, unspecified; Z96.653 Presence of artificial knee joint, bilateral; Z79.01 Long term (current) use of anticoagulants; Z86.718 Personal history of other venous thrombosis and embolism; Z86.711 Personal history of pulmonary embolism; Z87.891 Personal history of nicotine dependence; Z79.82 Long term (current) use of aspirin; Z79.899 Other long term (current) drug therapy
CPT/HCPCS: 36410; 36415; 71046; 74177; 76937; 80048; 80053; 81001; 83605; 83735; 84145; 84484; 85025; 85610; 85730; 86140; 87040; 87070; 87075; 87077; 87186; 87205; 87635; 93005; 93306; 96361; 96365; 96366; 96368; 99285

== ENCOUNTER → 2022-12-12 | Outpatient (CLI) | payer MEDICARE ==
[2022-12-12 16:19] LABS: BUN/Creat Ratio 13.13 Ratio (12.00-20.00); Blood Urea Nitrogen 19.7 mg/dL (9.0-27.0); Carbon Dioxide 26.1 mmol/L (21.6-31.8); Chloride 106 mmol/L (96-109); Glucose 94 mg/dL (70-110); Potassium 5.2 mmol/L (3.5-5.5); Sodium 144 mmol/L (135-145)
== END | disposition home or self-care (01) ==
LOC: LABWHC1 11:34
PROVIDERS: ATTEND Internal Medicine Nephrology
DX: N17.9 Acute kidney failure, unspecified (principal)
CPT/HCPCS: 36415; 80048

== ENCOUNTER → 2023-01-19 | Outpatient (CLI) | payer MEDICARE ==
--- NOTE | 2023-01-20 07:48 | CT ---
EXAMINATION TYPE: CT abdomen pelvis wo con DATE OF EXAM: 01/19/2023 COMPARISON: 12/31/2021 INDICATION: Microscopic hematuria and frequent urination. DLP: 1633.8 mGycm, Automated exposure control for dose reduction was used. CONTRAST: 0 mL of Isovue 300. Study performed without Oral Contrast TECHNIQUE: Axial images were obtained from above the diaphragm to the pubic rami in the axial plane a t 5 mm thick sections. Reconstructed images are reviewed on the computer in the coronal plane. FINDINGS: Limited CT sections are obtained the lung bases. The lung bases are clear. There is some eccentric thickening of the distal esophagus at the gastroesophageal junction. Consider additional workup. CT ABDOMEN: Liver: Normal Spleen: Normal Pancreas: Normal Adrenal glands: The adrenal glands are normal. Gallbladder: Normal Kidneys: No masses are evident. No hydronephrosis is present. No cysts are present. No renal stone s are evident. Aorta: Normal Inferior vena cava: Normal. CT PELVIS: Loops of bowel within the abdomen and pelvis are normal. Studies without oral contrast limiting e valuation. Appendix: Not identified. No dilated tubular structure or inflammatory changes evident. Urinary bladder: Normal. This is incompletely distended and may have some limitation. Genitourinary structures: Prostate appears within normal limits Osseous structures: No suspicious lytic or sclerotic lesions. IMPRESSION: 1. No suspicious abnormality to account for hematuria. No renal or ureteral stones evident. 2. Eccentric thickening of the distal esophagus at the gastroesophageal junction. Additional evaluati on for neoplasm is recommended.
== END | disposition home or self-care (01) ==
LOC: RADCTMAIN 08:03
PROVIDERS: ATTEND Urology
DX: R31.1 Benign essential microscopic hematuria (principal); R35.0 Frequency of micturition; K22.89 Other specified disease of esophagus
CPT/HCPCS: 74176

== ENCOUNTER → 2023-10-18 | Outpatient (CLI) | payer MEDICARE ==
--- NOTE | 2023-10-18 09:44 | US ---
EXAMINATION TYPE: US Aorta Screening DATE OF EXAM: 10/18/2023 COMPARISON: NONE CLINICAL INDICATION: Male, 68 years old with history of Z13.6 ENCOUNTER FOR SCREENING FOR CARDIOVASCU LAR D; AAA screening Limited exam due to large body habitus TECHNIQUE: Multiple sonographic images of the abdominal aorta are obtained. FINDINGS: EXAM MEASUREMENTS: Abdominal Aorta: Proximal: 2.4 x 2.8 cm Mid: 1.9 x 1.9 cm Distal: 1.8 x 1.9 cm Bifurcation: Right Iliac: 1.3 x 1.8 cm Left Iliac: 1.4 x 1.9 cm LICENSED PSYCHOLOGIST MANAGER NOTES: IMPRESSION: No evidence for aortic aneurysm. Mild ectasia of the proximal aorta.
== END | disposition home or self-care (01) ==
LOC: RADUSWWP 08:05
PROVIDERS: ATTEND Family Medicine
DX: Z13.6 Encounter for screening for cardiovascular disorders (principal); I77.819 Aortic ectasia, unspecified site
CPT/HCPCS: 76706

== ENCOUNTER → 2024-09-26 | Outpatient (CLI) | payer MEDICARE ==
--- NOTE | 2024-09-26 21:31 | XR ---
EXAMINATION TYPE: XR lumbosacral spine 5 views DATE OF EXAM: 09/26/2024 12:26 PM COMPARISON: None CLINICAL INDICATION: Male, 69 years old with history of M51.360 OTHER INTVRT DISC DEGEN, LUM RGN WITH DISC; PHH, pain FINDINGS: Left vertebral chest. 5 lumbar type vertebral bodies. Moderate hypertrophic facet arthropathy through out. Prominent endplate spondylosis throughout with mild degenerative disc disease. Straightening of the normal lumbar lordosis but with preserved alignment and vertebral body heights. There is a distal coccygeal fracture displaced posteriorly by 7 mm. IMPRESSION: 1. Hypertrophic facet arthropathy throughout. 2. Mild multilevel degenerative disc disease with prominent endplate spondylosis. 3. Straightening of the normal lumbar lordosis could be positional or due to muscle spasm. No vertebr al compression collapse or malalignment. 4. Distal tail bone fracture displaced posteriorly by 7 mm. This is age indeterminate. Correlate for any point tenderness. [facility], Workstation: [facility], 09/26/2024 9:28 PM
== END | disposition home or self-care (01) ==
LOC: RADXRMAIN 12:08
PROVIDERS: ATTEND Family Medicine
DX: M51.360 Other intervertebral disc degeneration, lumbar region with discogenic back pain only (principal); M47.816 Spondylosis without myelopathy or radiculopathy, lumbar region; S32.2XXD Fracture of coccyx, subsequent encounter for fracture with routine healing
CPT/HCPCS: 72110